=== PATIENT | male | born 1965 | race Caucasian/White ===

== ENCOUNTER 2023-04-30 09:18 | Outpatient (AMB) | payer OTHER, SELFPAY ==
--- NOTE | 2023-04-30 07:15 | A.OFFVIS_ITS ---
Intake Vital Signs 04/30/23 09:28 Height 6 ft 5 in Weight 250 lb BMI 29.6 BP 116/74 Blood Pressure Location Lt brachial Position Sitting Respiration 12 Pulse 80 Pulse Source Pulse Oximeter Intake Visit Reasons: Bilat Knee Pain h/o Knee Surgery Allergies oxycodone [Percocet] Allergy (Unknown, Verified 04/30/23 09:30) itching Medication List - Last Reconciled 04/30/23 by Edwige Rossi, ADRIENNE acetaminophen 650 mg PO Q6H PRN aspirin (Adult Aspirin Regimen) 81 mg PO DAILY atorvastatin 80 mg PO BEDTIME cyclobenzaprine 10 mg PO TID PRN loratadine (Claritin) 10 mg PO DAILY metoprolol succinate ER 50 mg PO DAILY nitroglycerin 0.4 mg sublingual Q5M PRN semaglutide 1 mg subcut QWEEK ticagrelor (Brilinta) 60 mg PO BID venlafaxine ER 75 mg PO DAILY zolpidem ER 12.5 mg PO BEDTIME PRN HPI Bilat Knee Pain h/o Knee Surgery HPI Details 58-year-old male who presents today to t he office for evaluation of bilateral knee pain h/o knee surgery He complains of longstanding pain in multiple areas of his body. His complaints today include an aching pain in the lower back and aching pain in bilateral knees. All these painful areas are rated as 8-10/10 in intensity. There are worse in the morning when you first wakes up and gets slightly better over the course of the day. He is unable to perform his daily activities. He reports locking sensation in his knees and has difficulty extending them. He was getting cortisone injections until 1 year ago, which was discontinued due to antiplatelet therapy. He is currently taking Tylenol with some relief. He recently moved from [place] and noticed some change in his pain. His most bothersome symptom at this time is his right knee. He describes a locking sensation on the knee. He used to get cortisone injections to the knee, but he has not been able to get over the past one year since he has been on dual antiplatelet therapy for stent placement. He is supposed to be seeing his photo printer next week for reviewing his anticoagulation regimen. He reports the right knee pain gets worse especially in the morning time, for which he takes Tylenol with some help. He has done some past chiropractic manipulations with some relief, but still getting locking sensations. He also done TENS therapy at [facility] and with good effect and as well as physical therapy that provided moderate relief. Past medical history is notable for a torn meniscus knee, left shoulder rotator cuff repair, left shoulder SLAP repair left, Achilles tendon repair and lumbar radiofrequency ablations. 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 Physical Exam Vital Signs: Last Vital Signs Pulse 80 04/30/23 09:28 Resp 12 04/30/23 09:28 BP 116/74 04/30/23 09:28 BMI result Body Mass Index 29.6 On exam today: Appears afebrile. Alert and oriented. Mood and affect appropriate. Follows and participates in conversation appropriately. Respiratory effort is unlabored. Able to transition from sit to stand unassisted. Ambulates with bilaterally normal heel strike and toe off. Able to stand and walk on toes and heels. No tenderness to palpation in the medial aspect of bilateral knees. Crepitus and clicking with right knee extension. Assessment & Plan Assessment & Plan (1) Tear meniscus knee: Code(s): S83.209A - Unspecified tear of unspecified meniscus, current injury, unspecified knee, initial encounter (2) Bilateral knee pain: Code(s): M25.561 - Pain in right knee; M25.562 - Pain in left knee (3) Lumbar spondylosis: Code(s): M47.816 - Spondylosis without myelopathy or radiculopathy, lumbar region Plan Recommend conservative measures at this time given DAPT. 1. PT for right knee with knee/sports medicine therapist to assess and recommend strategies. 2. Swimming to help with weightless exercise for LBP, bilateral knee pain and weight loss. 3. TENS therapy to the low back and knees as tolerated. 4. Also recommended a HEP as tolerated. 5. Trial of gabapentin 300mg BID for multiple pain complaints. Scribed for Dr. Leary by Rick Dang, medical massage therapist, on 04/30/2023. I, Dr. Leary, have personally reviewed and agree with the information entered by the scribe. Orders: Orders PT Evaluation and Treatment Today M25.561 - Pain in right knee, M25.562 - Pain in left knee, M47.816 - Spondylosis without myelopathy or radiculopathy, lumbar region, S83.209A - Unspecified tear of unspecified meniscus, current injury, unspecified knee, initial encounter Medications: New gabapentin 300 mg PO BID 60 caps 0RF Coding Level of Care Code New Pt Level 4 (04788) Diagnoses Tear meniscus knee S83.209A Bilateral knee pain M25.561; M25.562 Lumbar spondylosis M47.816
[2023-04-30 09:28] VITALS: BP 116/74; PULSE 80; RESP 12; BMI 29.6
== END 2023-04-30 10:12 | disposition home or self-care (01) ==
PROVIDERS: PCP Internal Medicine; Visit Provider Internal Medicine
DX: S83.209A Unspecified tear of unspecified meniscus, current injury, unspecified knee, initial encounter (principal); M25.561 Pain in right knee; M25.562 Pain in left knee; M47.816 Spondylosis without myelopathy or radiculopathy, lumbar region
CPT/HCPCS: 99204

== ENCOUNTER → 2023-04-30 09:18 | Outpatient (BNVA) | payer OTHER, SELFPAY | PROVIDERS: PCP Internal Medicine; Visit Provider Internal Medicine ==

== ENCOUNTER 2024-10-04 13:33 | Outpatient (AMB) | payer SELFPAY ==
--- OUTSIDE RECORDS SUMMARY | 2024-10-04 14:50 | XMS_ITS | Clinical Summary ---
Author Organization [facility] Address [address] [place] [id number] Phone Care Team Providers Care Scrap Baler Name Role Phone Terri Drake MD Primary Care Provider [phone] Allergies Active Allergy Reactions Criticality Noted Date Comments Oxycodone-Acetaminophen Hives 01/15/2017 Medications zolpidem (AMBIEN CR) 12.5 MG CR tablet Take 12.5 mg by mouth nightly as needed. Active ibuprofen (ADVIL,MOTRIN) 800 MG tablet Take 800 mg by mouth every 6 (six) hours as needed for pain (specific location in comments). Active venlafaxine (EFFEXOR-XR) 75 MG 24 hr capsule Take 75 mg by mouth daily. 3 04/06/2018 Active diclofenac sodium (VOLTAREN) 75 MG EC tablet Take 1 tablet (75 mg total) by mouth 2 (two) times a day. 60 tablet 2 11/18/2019 Active Active Problems Problem Noted Date Diagnosed Date Bilateral knee pain 12/30/2018 Rotator cuff strain, left, initial encounter 05/2018 Rotator cuff syndrome of left shoulder 7 History of arthroscopic surgery of shoulder 07/2016 Social History Tobacco Use Types Packs/Day Years Used Date Smoking Tobacco: Never Smokeless Tobacco: Never Alcohol Use Standard Drinks/Week Comments No 0 (1 standard drink = 0.6 oz pur e alcohol) Education Answer Date Recorded Are you interested in more education? Not on ten e 06/07/2022 Are you concerned about learning? Not on file 06/07/2022 No 06/07/2022 No 06/07/2022 Digital Access Answer Date Recorded No 07/06/2022 No 07/06/2022 Reliable internet access at home? Not on file 07/06/2022 Device with a working camera? Not on file Sex and Gender Information Value Date Recorded Sex Assigned at Not on file Legal Sex Male 9:43 PM EDT Gender Identity Not on file Sexual Orientation Not on file Last Filed Vital Signs Vital Sign Reading Time Taken Comments Blood Pressure 152/74 12/30/2018 1:24 PM EST Pulse 70 12/30/2018 1:24 PM EST Temperature - - Respiratory Rate - - Oxygen Saturation - - Inhaled Oxygen Concentration - - Weight 126.1 kg (278 lb) 04/20/2019 11:09 AM EDT Height 195.6 cm (6' 5.01 ) 12/30/2018 1:24 PM ES T Body Mass Index 32.96 12/30/2018 1:24 PM EST Plan of Treatment Health Maintenance Due Date Last Done Comments Adult Td,Tdap Booster 1965 LIPID PANEL 1965 DEPRESSION SCREENING 1975 HEPATITIS C SCREENING 1981 HIV ONE-TIME SCREENING (18-6 5 YEARS) 1981 COLOGUARD 02/21/2008 COLONOSCOPY 02/21/2008 COLORECTAL CANCER SCREENING 02/21/2008 FIT TEST 02/21/2008 FOBT 02/21/2008 SIGMOIDOSCOPY 02/21/2008 VIRTUAL COLONOSCOPY 02/21/2008 PNEUMOCOCCAL VACCINES (50+ years) (1 of 1 - PCV) 2013 ZOSTER VACCINES (2 of 2) 04/06/2020 020, 01/19/2020 COVID-19 VACCINE (3 - 2023-2 5 season) 2023 03/23/2020, 02/24/2020 RSV VACCINE (1 - 1-dose 75+ series) 2038 SMOKING STATUS SCREENING (On ce After 26 Yrs) Completed 04/20/2019 HEPATITIS A VACCINES Aged Out No long er eligible based on patient's age to complete this topic HIB VACCINES Aged Out No longer eligi ble based on patient's age to complete this topic MENINGOCOCCAL VACCINES (ACWY) Aged Out No longer eligible based on patient's age to complete this topic MENINGOCOCCAL VACCINES (B) Aged Out N o longer eligible based on patient's age to complete this topic Medical Devices Not on file Insurance [facility] HMO [facility] [place] [address] [place] [address]O [facility] * Guarantor: Terri Stevens Account Type Relation to Patient Date of Phone Billing Address Workers Comp Self [address] [place] [address] [facility] HMO Care Teams Scrap Baler Relationship Specialty Start Date End Date Terri Drake MD [address] [facility] [address] [place] [address] PCP - General 11/28/16 Additional Source Comments The information contained in this document represents components of the legal health record. It is not the complete legal health record.[facility]
--- OUTSIDE RECORDS SUMMARY | 2024-10-04 14:50 | XMS_ITS | Encounter Summary ---
Author Organization [facility] Address [address] [place] [address] [place] [phone] Phone Care Team Providers Care Visitor Services Representative Name Role Phone Levar Drake MD Primary Care Provider [phone] Encounter Details Date Type Department Care Team (Late st Contact Info) Description 03/02/2018 Procedure Pass [address] [place] [address] Social History Tobacco Use Types Packs/Day Years Used Date Smoking Tobacco: Never Smokeless Tobacco: Never Alcohol Use Standard Drinks/Week Comments No 0 (1 standard drink = 0.6 oz pur e alcohol) Sex and Gender Information Value Date Recorded Sex Assigned at Not on file Legal Sex Male 9:43 PM EDT Gender Identity Not on file Sexual Orientation Not on file documented as of this encounter Last Filed Vital Signs Vital Sign Reading Time Taken Comments Blood Pressure - - Pulse - - Temperature - - Respiratory Rate - - Oxygen Saturation - - Inhaled Oxygen Concentration - - Weight 122.5 kg (270 lb) 03/04/2018 7:52 PM EST Height 195.6 cm (6' 5 ) 03/04/2018 7:52 PM EST Body Mass Index 32.02 03/04/2018 7:52 PM EST documented in this encounter Plan of Treatment Not on file documented as of this encounter Visit Diagnoses Not on filedocumented in this encounter Care Teams Visitor Services Representative Relationship Specialty Start Date End Date Levar Drake MD [address] [facility] [address] [place] [address] PCP - General 11/28/16 documented as of this encounter Additional Source Comments The information contained in this document represents components of the legal health record. It is not the complete legal health record.[facility]
--- OUTSIDE RECORDS SUMMARY | 2024-10-04 14:50 | XMS_ITS | Clinical Summary ---
Author Organization [address] [place] [address] [place] [phone] Phone Care Team Providers Care Financial Director Name Role Phone Levar Drake MD Primary Care Provider [phone] Allergies Active Allergy Reactions Criticality Noted Date Comments Oxycodone Hcl 04/29/2022 Medications atorvastatin (LIPITOR) 80 mg tablet Take 1 tablet (80 mg total) by mouth 1 (one) time each day. 10/27/2023 Active senna (SENOKOT) 8.6 mg tablet Take 1 tablet (8.6 mg total) by mouth 1 (one) time each day. Active MULTIVITAMIN ORAL Take by mouth daily. Active docusate sodium (COLACE) 100 mg capsule Take 1 capsule (100 mg total) by mouth 1 (one) time each day if needed. Active aspirin (Vazalore) 81 mg capsule Take 1 tablet by mouth 1 (one) time each day. Patient taking 650mg daily Active nitroglycerin (NITROSTAT) 0.[address] 1 tablet (0.4 mg total) under the tongue every 5 (five) minutes if needed. Active loratadine (CLARITIN) 10 mg tablet Take 1 tablet (10 mg total) by mouth as needed. Active cyclobenzaprine (FLEXERIL) 10 mg tablet Take 1 tablet (10 mg total) by mouth 3 (three) times a day if needed. Active mag/aluminum/sod bicarb/alginc (GAVISCON ORAL) Take 3 Tablets by mouth as needed. Three times a day Active venlafaxine (EFFEXOR) 75 mg tablet Take by mouth daily. Active zolpidem CR (AMBIEN CR) 12.5 mg CR tablet Take by mouth at bedtime. Active tirzepatide, weight loss, (Zepbound) 5 mg/0.5 mL injection Inject 0.5 mL (5 mg total) under the skin every 7 (seven) days. Active metoprolol tartrate (LOPRESSOR) 25 mg tabletIndication s:Essential (primary) hypertension,Pre sence of coronary angioplasty implant and graft TAKE 1 TABLET BY MOUTH TWICE A DAY 180 tablet 2 07/15/2024 Active Active Problems Problem Noted Date Diagnosed Date Aortic dilatation ([facility] V24) 04/27/2024 Assessment & Plan (04/27/2024 10:10 AM EDT): We will update an echocardiogram for reevaluation of his aortic dilatation given that his most recent echocardiogram was completed in November 2022. Blood pressure is well-controlled. Will continue to readdress this as indicated. Orders: Transthoracic echocardiogram (TTE) complete with PRN contrast, bubble, strain, and 3D order panel; Future Status post coronary artery stent placement 04/10 Assessment & Plan (04/27/2024 10:10 AM EDT): Pericardial effusion after m yocardial infarction ([facility] V24, [facility] V28) 04/22/2023 CAD in [place] artery 05/29/2022 Overview (04/14/2024): Last Assessment & Plan: He does have coronary disease with multivessel stenting as above. He is stable without ischemic symptoms. He has completed cardiac rehab. Blood pressure has improved. He will continue aspirin, ticagrelor, lisinopril, metoprolol, and high intensity statin therapy. I am going to update an echocardiogram to see if his EF has recovered. If this has I will likely stop lisinopril and see if this continues to improve his episodic lightheadedness. Increase atorvastatin 80 mg daily. Goal LDL should be less than 70 given coronary disease. Low-salt diet. Change positions slowly given recurrent dizziness. Assessment & Plan (04/27/2024 10:10 AM EDT): The patient remains active on a regular basis within his current decreased functional capacity related to his bilateral knee pain; he offers no exertional symptoms to cause concern for underlying ischemia. Continue with guideline directed medical therapies for coronary artery disease including metoprolol, atorvastatin, and DAPT with aspirin and reduced dose of Brilinta. He has inquired today about when he is able to stop Brilinta; I have reviewed the results of both of his cardiac catheterizations completed in March 2022 which showed that he does have a fair amount of residual disease. He has been on Brilinta for almost 30 months now and has been tolerating it well. He been advised to stop his Brilinta 5 days prior to his scheduled left knee surgery on May 25, 2024; I have told him that I will speak with Dr. Butler regarding the need to restart his Brilinta post procedurally and we will continue to readdress this. The patient is aware that aspirin therapy will be lifelong. The patient was advised to seek emergent medical attention by calling 911 if they were to develop severe dyspnea, chest pain that did not resolve with rest or nitroglycerin, or if they were to faint. Orders: Lipid panel with reflex to direct LDL; Future Chronic combined systolic an d diastolic congestive heart failure (CMS/HCC V24, CMS/HCC V28) 05/29/2022 Overview (04/14/2024): Last Assessment & Plan: He has no signs or symptoms of volume overload. There is no indication for diuretic therapy. Continue monitor volume status. Call the office for weight gain in 1 to 3 pounds overnight or 5 pounds in 1 week. Low-salt diet encouraged. Assessment & Plan (04/27/2024 10:10 AM EDT): As above. Orders: Transthoracic echocardiogram (TTE) complete with PRN contrast, bubble, strain, and 3D order panel; Future Pericarditis 05/29/2022 Overview (04/14/2024): Last Assessment & Plan: He completed treatment for pericarditis. Trivial pericardial effusion noted on last echo. We will update this. He is asymptomatic. Essential hypertension 05/01/2022 Overview (04/14/2024): Last Assessment & Plan: Blood pressure stable today. Continue regimen. Assessment & Plan (04/27/2024 10:10 AM EDT): Blood pressure is well-controlled on current medical therapy; continue metoprolol. For completeness, we will obtain metabolic panel today as well.Orders: Basic metabolic panel; Future Ischemic cardiomyopathy 05/01/2022 Overview (04/14/2024): Status post non-STEMI with an ischemic cardiomyopathy. Stenting of OMB #2 in the proximal circumflex and then the LAD. EF was 20 to 25%. He is having problems with postural lightheadedness and dizziness and dyspnea on exertion. There is no sign of volume overload today. Blood pressures have been low and he has had postural lightheadedness Last Assessment & Plan: Ejection fraction has improved. EF went from 20-25 to 45%. Continue current regimen. No indication for ICD. Assessment & Plan (04/27/2024 10:10 AM EDT): The patient's most recent echocardiogram was completed in November 2022 revealing an improved EF of 45 to - 50%; previously it had been as low as 20 to 25% at the time of his stenting in April 2022. He appears euvolemic on exam today and offers no symptoms concerning for overt heart failure or underlying ischemia. We will be updating an echo for surveillance purposes only; this should not delay his surgical procedure. We discussed risk reduction through lifestyle modifications including healthy diet, routine exercise, and weight management. We reviewed heart failure management including low-sodium diet, symptom surveillance, daily weights, and medication compliance. I've asked the patient to call if they develop worsening symptoms of heart failure such as increased shortness of breath, new or worsening cough, increased swelling in the legs or ankles, or weight gain of more than 2 pounds in one day or 4 pounds in one week. Orders: ECG 12 lead Transthoracic echocardiogram (TTE) complete with PRN contrast, bubble, strain, and 3D order panel; Future Lipid panel with reflex to direct LDL; Future Chest pain 04/29/2022 EKG abnormality 04/29/2022 Hyperlipidemia 04/29/2022 Overview (04/14/2024): Last Assessment & Plan: Last lipid panel from August 2022. Total cholesterol 141, HDL 44, LDL 73. Continue high intensity statin therapy. Goal LDL should be less than 70. We will increase statin therapy to 80 mg daily and repeat in 4 to 6 weeks. Assessment & Plan (04/27/2024 10:10 AM EDT): The patient's most recent lipid panel was completed in November 2022 revealing an LDL of 56 which is at goal of less than 70 for this patient with a history of coronary artery disease. We will update a lipid panel today; in the interim, continue atorvastatin 80 mg. Orders: Lipid panel with reflex to direct LDL; Future History of non-ST elevation myocardial infarctio n (NSTEMI) 04/29/2022 Assessment & Plan (04/27/2024 10:10 AM EDT): Medical History Medical History Date Comments Class 1 obesity DX:Class 1 obesi ty Apnea DX:Apnea Back pain DX:Back pain Depression DX:Depression GERD (gastroesophageal reflux disease) DX:GERD (gastroesophageal reflux disease) Insomnia DX:Insomnia Knee pain DX:Knee pain Major depressive disorder in partial remission (CMS/HCC V24) DX:Major depressive disorder in partial remission (HCC) Family History Medical History Relation Name Comments Heart attack Father Relation Name Status Comments Father Social History Tobacco Use Types Packs/Day Years Used Date Smoking Tobacco: Never Smokeless Tobacco: Never Alcohol Use Standard Drinks/Week Comments Yes 0 (1 standard drink = 0.6 oz pur e alcohol) Sex and Gender Information Value Date Recorded Sex Assigned at Not on file Legal Sex Male 8:10 PM EST Gender Identity Not on file Sexual Orientation Not on file Obstetrics History Last Filed Vital Signs Vital Sign Reading Time Taken Comments Blood Pressure 121/70 04/27/2024 9:08 AM EDT Pulse 67 04/27/2024 9:08 AM EDT Temperature - - Respiratory Rate - - Oxygen Saturation 97% 04/27/2024 9:08 AM EDT Inhaled Oxygen Concentration - - Weight 121 kg (266 lb) 06/14/2024 11:37 AM EDT Height 195.6 cm (6' 5 ) 06/14/2024 11:37 AM EDT Body Mass Index 31.54 06/14/2024 11:37 AM EDT Plan of Treatment Health Maintenance Due Date Last Done Comments DTaP,Tdap,and Td Vaccines (1 - Tdap) 1982 Pneumococcal Vaccine: 50+ Years (1 of 2 - PCV) 1982 Zoster Vaccines (2 of 2) 04/06/2020 02/10/2020, 12/0 10/2019 RSV Immunization Adult Patients (1 - Risk 60-74 years 1-dose series) 2023 Colorectal Cancer Screening: Colonoscopy 03/06/2023 HIV Screening 03/06/2023 Hepatitis C Screening 03/06/2023 Social Influencers of Health Screening 03/06/2023 Depression Screening 02/11/2024 Influenza Vaccine (#1) 2024 , 11/19/2022, 11/26/2021, Additional history exists Hypertension/CHF/CAD Annual BMP Blood Test 04/27/2025 04/27/2024 Cholesterol Screening (Lipid Panel) 04/27/2029 04/27/2024, 11/19/2022 COVID-19 Vaccine Completed 01/30/2024, 12/2022, 12/28/2021, Additional history exists HIB Vaccines Aged Out No longer eligi ble based on patient's age to complete this topic HPV Vaccines Aged Out No longer eligi ble based on patient's age to complete this topic Hepatitis A Vaccines Aged Out No long er eligible based on patient's age to complete this topic Hepatitis B Vaccines Aged Out No long er eligible based on patient's age to complete this topic IPV Vaccines Aged Out No longer eligi ble based on patient's age to complete this topic MMR Vaccines Aged Out No longer eligi ble based on patient's age to complete this topic Meningococcal ACWY Vaccine Aged Out N o longer eligible based on patient's age to complete this topic Meningococcal B Vaccine Aged Out No l onger eligible based on patient's age to complete this topic RSV Immunization Patients Under 20 months Aged Out No longer eligible based on patient's age to complete this topic Varicella Vaccines Aged Out No longer eligible based on patient's age to complete this topic Procedures Procedure Name Priority Date/Time Associated Diagnosis Comments BASIC METABOLIC PANEL Routine 04/27/2024 10:39 AM EDT Essential hypertension LIPID PANEL WITH REFLEX TO DIRECT LDL Routine 04/27/2024 10:39 AM EDT Ischemic cardiomyopathy CAD in [place] artery Hyperlipidemia, unspecified hyperlipidemia type from Last 3 Months or Most Recently Relevant to Health Maintenance Results * Lipid panel with reflex to direct LDL (04/27/2024 10:39 AM EDT) Cholesterol 155 0 - 200 mg/dL LAB CHEMISTRY METHOD 04/27/2024 1:[address] [facility] Triglycerides 127 0 - 150 mg/dL LAB CHEMISTRY METHOD 04/27/2024 1:[address] [facility] HDL 57 >=40 mg/dL LAB CHEMISTRY METHOD 04/27/2024 1:[address] [facility] LDL Calculated 73 0 - 100 mg/dL LAB CHEMISTRY METHOD 04/27/2024 1:[address] [facility] VLDL Cholesterol Artur 25.4 mg/dL LAB CHEMISTRY METHOD 04/27/2024 1:[address] [facility] Non HDL Chol. (LDL+VLDL) 98 <145 mg/dL LAB CHEMISTRY METHOD 04/27/2024 1:[address] [facility] Chol/HDL Ratio 2.7 0.0 - 4.4 LAB CHEMISTRY METHOD 04/27/2024 1:[address] [facility] Blood Venous blood specimen / Unknown Venipuncture / Unknown 04/27/2024 10:39 AM EDT 04/27/2024 11:30 AM EDT Rosa Li NP LAB BLOOD ORDERABLES Final Result [facility] [address] [place] [address], * Basic metabolic panel (04/27/2024 10:39 AM EDT) Sodium 136 133 - 145 mmol/L LAB CHEMISTRY METHOD 04/27/2024 1:00 PM [facility] Potassium 4.2 3.5 - 5.5 mmol/L LAB CHEMISTRY METHOD 04/27/2024 1:00 PM [facility] Chloride 103 96 - 110 mmol/L LAB CHEMISTRY METHOD 04/27/2024 1:00 PM [facility] CO2 26 21 - 32 mmol/L LAB CHEMISTRY METHOD 04/27/2024 1:00 PM [facility] Anion Gap 7 3 - 11 LAB CHEMISTRY METHOD 04/27/2024 1:00 PM [facility] Glucose 100 70 - 100 mg/dL LAB CHEMISTRY METHOD 04/27/2024 1:00 PM [facility] BUN 9 5 - 25 mg/dL LAB CHEMISTRY METHOD 04/27/2024 1:00 PM [facility] Creatinine 0.89 0.70 - 1.30 mg/dL LAB CHEMISTRY METHOD 04/27/2024 1:00 PM [facility] eGFR 97 >=60 mL/min/1. 73m2 LAB CHEMISTRY METHOD 04/27/2024 1:00 PM [facility] Comment:Calculation based on the Chronic Kidney Disease Epidemiology Collaboration (CKD-EPI) equation refit without adjustment for race. BUN/Creatinine Ratio 10.1 LAB CHEMISTRY METHOD 04/27/2024 1:00 PM [facility] Calcium 9.5 8.5 - 10.5 mg/dL LAB CHEMISTRY METHOD 04/27/2024 1:00 PM [facility] Blood Venous blood specimen / Unknown Venipuncture / Unknown 04/27/2024 10:39 AM EDT 04/27/2024 11:30 AM EDT us Rosa Li NP LAB BLOOD ORDERABLES Final Result [facility] [address] [place] [address], from Last 3 Months or Most Recently Relevant to Health Maintenance Insurance * Guarantor: Levar Mittal Account Type Relation to Patient Date of Phone Billing Address Personal/Family Self 1965 [address] [place] [address] [facility] [address] [place] [address] Care Teams Financial Director Relationship Specialty Start Date End Date Levar Drake MD [address] [place] [address] PCP - General 06/12/15
== END 2024-10-04 13:35 | disposition home or self-care (01) ==
LOC: HO.HMGAL 13:33
PROVIDERS: PCP Internal Medicine; Visit Provider Registered Nurse Emergency
DX: J30.89 Other allergic rhinitis (principal)
CPT/HCPCS: 95117; 95165

== ENCOUNTER 2024-11-01 14:05 | Outpatient (AMB) | payer OTHER, SELFPAY | END 2024-11-01 14:09 | disposition home or self-care (01) | LOC: HO.HMGAL 14:05 | PROVIDERS: PCP Internal Medicine; Visit Provider Registered Nurse Emergency | DX: J30.89 Other allergic rhinitis (principal) | CPT/HCPCS: 95117; 95165 ==

== ENCOUNTER 2024-11-29 14:25 | Outpatient (AMB) | payer OTHER, SELFPAY ==
--- OUTSIDE RECORDS SUMMARY | 2024-11-29 18:10 | XMS_ITS | Clinical Summary ---
Author Organization [facility] Address [address] [facility] [address] [place] [id number] Phone Care Team Providers Care Manager Digital Name Role Phone Terri Drake MD Primary Care Provider [phone] Allergies Active Allergy Reactions Criticality Noted Date [...] HEPATITIS C SCREENING 1981 HIV ONE-TIME SCREENING (18-65 YEARS) 1981 COLOGUARD 02/21/2008 COLONOSCOPY 02/21/2008 COLORECTAL CANCER SCREENING 02/21/2008 FIT TEST 02/21/2008 FOBT 02/21/2008 SIGMOIDOSCOPY 02/21/2008 VIRTUAL COLONOSCOPY 02/21/2008 PNEUMOCOCCAL VACCINES (50+ years) (1 of 1 - PCV) 2013 ZOSTER VACCINES (2 of 2) 04/06/2020 02/10/2020, 12/0 10/2019 INFLUENZA VACCINE (#1) 2024 0, 11/08/2018, 11/10/2017, Additional history exists COVID-19 VACCINE (3 - 2024- season) 2024 03/23/2020, 02/24/2020 RSV VACCINE (1 - 1-dose 75+ series) 2038 SMOKING STATUS SCREENING (Once After 26 Yrs) Completed 04/20/2019 HEPATITIS A [...] topic Medical Devices Not on file [place] [address] [place] [address] [place] [address] [facility] [address] [place] [id number] [place], [place] [address]O [facility] Care Teams Manager Digital Relationship Specialty Start Date End Date Terri Drake MD [address] [place] [id number] PCP - General 11/28/16 Additional Source Comments The information contained in this document represents components of the legal health record. It is not the complete legal health record.[facility]
--- OUTSIDE RECORDS SUMMARY | 2024-11-29 18:10 | XMS_ITS | Encounter Summary ---
Author Organization [facility] Address [address] [place] [address] [place] [address] Phone Care Team Providers Care Bowling Ball Assembler Name Role Phone Levar Drake MD Primary Care Provider [phone] Encounter Details Date Type Department Care Team (Late st Contact Info) Description 03/02/2018 Procedure Pass [address] [place] [address] Social History Tobacco Use Types Packs/Day Years [...] on filedocumented in this encounter Care Teams Bowling Ball Assembler Relationship Specialty Start Date End Date Levar Drake MD [address] [facility] [address] [place] [address] PCP - General 11/28/16 documented as of this encounter Additional Source Comments The information contained in this document represents components of the legal health record. It is not the complete legal health record.[facility]
== END 2024-11-29 14:27 | disposition home or self-care (01) ==
LOC: HO.HMGAL 14:25
PROVIDERS: PCP Internal Medicine; Visit Provider Registered Nurse Emergency
DX: J30.89 Other allergic rhinitis (principal)
CPT/HCPCS: 95117; 95165

== ENCOUNTER 2025-01-05 10:02 | Outpatient (AMB) | payer OTHER, SELFPAY ==
--- OUTSIDE RECORDS SUMMARY | 2025-01-05 11:40 | XMS_ITS | Data Portability ---
Author Organization [facility], [facility] Address [address] [place] [address] Care Team Providers Care Locks Inspector Name Role Phone TERRI CHAVEZ Primary Care Provider Assessment Encounter Date Assessment Date Assessment LastModified by Organization Details LastModified Time 07/12/2024 07/12/2024 Assessment: Good improvement in knee flex noted today. Plan: Continue PT @ 2x/wk for 4 weeks to decrease pain, optimize motion, increase strength, and foster independence with functional ADL's. .p Not available 07/12/2024 15:13:14 07/14/2024 07/14/2024 Assessment: I ncreased endurance with therex noted today. Plan: Continue PT @ 2x/wk for 4 weeks to decrease pain, optimize motion, increase strength, and foster independence with functional ADL's. .p Not available 07/14/2024 16:16:07 12/09/2024 12/09/2024 I am seeing the patient today under the supervision of who was available but who did not see the patient. The patient presents today for follow-up. Has known trochanteric bursitis of the Right hip. Has had previous cortisone injection which gave relief until recently. Has had no recent trauma, no fevers or chills, no neurovascular changes. Presents today for further evaluation. PAST MEDICAL/SURGICAL HISTORY Past medical history is reviewed per intake sheet. PHYSICAL FINDINGS On physical examination, the patient is well appearing and in no apparent distress, alert and oriented x3. Gait is symmetric. Examination of the hip reveals the skin to be intact, normal musculature, continued tenderness on palpation over the greater trochanter. No pain with range of motion of the hip, has full range of motion, no crepitus noted with range of motion. No significant pain with straight leg raise. 2 x-ray views of the Right hip were independently reviewed today : No fractures, no deformities, no DJD noted on todays exam ASSESSMENT Symptomatic trochanteric bursitis of the Right hip. PLAN I explained the nature of the diagnosis with the patient and its treatment options both conservative and surgical.Conservat niki measures were discussed at length including but not limited to physical therapy, bracing, anti-inflammatorie s and injection therapies. Please see procedure note for more information about the injection performed today. The patient will follow up as needed. The patient understands and agrees with the plan. They know to call if they have any further questions or concerns regarding their symptoms, or to follow up sooner if needed. [email or web address] Not available 12/09/2024 06:12:50 12/30/2024 12/30/2024 History: Patient is a 59-year-old male presents to me for initial evaluation of bilateral knee pain. Pain is over the anterior medial aspect of both knees. He takes Tylenol for discomfort. Right knee is locking on him 2-3 times a month which is extremely painful. Left knee actually probably hurts more at baseline though. Pain level X/10 on both at times though. He reports pain at rest and significant limitations in activities particularly difficulty with stairs and getting out of a chair. Has difficulty kneeling and squatting. He reports a limp. PMH/PSH/MEDS/ALL/F MH/SOC HX/ROS are reviewed in detail per my medical intake sheet. Of note: Myocardial infarction status post stent 3 in 2022, right knee arthroscopy in 2023, left knee arthroscopy in 2024, sleep apnea, right hip bursitis, back pain General Exam: Vital signs are as noted below Mental status: Alert and lucid. Normal insight, affect and grooming. WIRE BENDER HAND: Gross motor coordination is intact. No spasticity or clonus noted. Extremities: Calves are soft nontender, skin intact Orthopedic Examination: Right Knee: Neutral alignment. Range of motion 3-120. Severe patellofemoral pain and crepitus. Tenderness along the medial joint line. No instability, mild effusion. Left Knee: Neutral alignment. Range of motion 3-120. Severe patellofemoral pain and crepitus. Severe tenderness along the medial joint line. No instability. Mild effusion Antalgic gait pattern favoring the right side. Full strength and sensation distally X-rays: Radiographs ordered and obtained today including a standing AP, Singh view, nonweightbearing lateral views, and merchant view. These radiographs demonstrate osteoarthrits of the bilateral knees. There is joint space narrowing, subchondral sclerosis, and osteophyte formation. Arthroscopy photographs are reviewed independently by me. These demonstrate grade 4 changes in the right trochlea with grade 3 medial compartment changes. On the left knee, there is also grade 4 changes in the trochlea with grade 3 changes on the patella. Assessment: End-stage osteoarthritis of the bilateral knees confirmed with arthroscopy. Right knee causing more functional limitations due to locking intermittently. His knees have failed greater than 3 months of nonoperative treatment including medication, activity modification, arthroscopy, and injections. The patient is in too much discomfort to participate in any meaningful physical therapy. PLAN: The patient was thoroughly counseled today regarding their knee condition, its natural history and the options, both operative and non-operative. The nature of knee replacement surgery, the potential risks, benefits, and complications, the magnitude of the surgery, the intensity of postoperative recovery as well as its elective nature were explained at length today. Although it is impossible to list all of the possible complications of any operation or procedure, I explained that some of the major complications that may arise include the following: Blood loss requiring transfusion, infection (early or late), blood clots, dislocation, pain (persistent or new), scars numbness or tenderness, unequal leg lengths, weakness, stiffness, loss of motion, clicking of implant, calcification, fracture of bone, instability of leg, nerve damage (paralysis or numbness), blood vessel damage, implant loosening, implant breakage, wearing of the implant, need for future surgery, allergic reaction, metal toxicity, medical complications including confusion, heart attack, stroke, or ). Issues regarding lifelong infection and activity precautions were reviewed. The longevity of the implants was discussed. The patient understands the potential need for revision surgery. We discussed performing the surgery in either an inpatient or outpatient setting as well as the pros and cons of both. The patient has elected to proceed in a inpatient setting. The patient understands that they are at potential increased risk of cardiac event and may require preoperative cardiac evaluation The patient will also require clearance from a medical doctor prior to surgery. The patient wishes to schedule an elective total knee replacement on the right side only at this time. Next planned follow-up is at the history and physical. The patient knows I will be happy to meet with them at any time in order to review any additional questions or concerns that they might have. [email or web address] Not available 12/30/2024 12:28:17 Plan of Treatment Reminders Order Date Submit Date Provider Last Modified By Organization Details Last Modified Time Details Appointments [facility] H&P 2025 09:30A M Koko Soto NP Not available Not available Not available [place] [facility] [place] 09:30A M Harvey Whitney MD Not available Not available Not available POST OP 15 2025 08:45A M Dea Corrales CNP Not available Not available Not available POST OP 15 2025 08:45A M Dea Corrales CNP Not available Not available Not available RECHECK 2025 09:40A Shaggy Whitney MD Not available Not available Not available Lab None recorded . Referral None recorded . Procedures None recorded . Surgeries None recorded . Imaging XR, knee, 4 or more view - 4 b knee 4v 2024 025 [email or web address] [facility], [address] [facility] [address], [facility] [address], [place], [address], 12/30/2024 13:01:54 Medication Orders None recorded . Patient TargetsNo targets recorded. Patient InstructionsNo instructions recorded. Reason for Referral None Reported. Results Created Date Observation Date Name Description Value Unit Range Abnormal Flag Note LastModifiedBy Organization Detail LastModifiedTime 12/31/1912/30/2024 CBC WITH DIFFE RENTI AL/PL ATELE T WBC 9.5 x10e3 /uL 3.4-10 .8 normal Not Available [facility] ([facility]) [address] [facility], [place], [address], 12/31/2024 06:05:31 12/31/1912/30/2024 CBC WITH DIFFE RENTI AL/PL ATELE T RBC 4.90 x10e6 /uL 4.14-5 .80 normal Not Available [facility] ([facility]) [address] [place], [address], 12/31/2024 06:05:31 12/31/19 25 12/30/2024 CBC WITH DIFFE RENTI AL/PL ATELE T hemoglobin 15.2 g/dL 13.0-1 7.7 normal Not Available [facility] ([facility]) [address] [place], [address], 12/31/2024 06:05:31 12/31/19 25 12/30/2024 CBC WITH DIFFE RENTI AL/PL ATELE T hematocrit 44.5 % 37.5-5 1.0 normal Not Available [facility] ([facility]) [address] [facility], [place], [address], 12/31/2024 06:05:31 12/31/19 25 12/30/2024 CBC WITH DIFFE RENTI AL/PL ATELE T MCV 91 fL 79-97 normal Not Available [facility] ([facility]) [address] [place], [address], 12/31/2024 06:05:31 12/31/19 25 12/30/2024 CBC WITH DIFFE RENTI AL/PL ATELE T MCH 31.0 pg 26.6-3 3.0 normal Not Available [facility] ([facility]) [address] [place], [address], 12/31/2024 06:05:31 12/31/19 25 12/30/2024 CBC WITH DIFFE RENTI AL/PL ATELE T MCHC 34.2 g/dL 31.5-3 5.7 normal Not Available [facility] ([facility]) [address] [place], [address], 12/31/2024 06:05:31 12/31/19 25 12/30/2024 CBC WITH DIFFE RENTI AL/PL ATELE T RDW 13.2 % 11.6-1 5.4 Not Available [facility] ([facility]) [address] [place], [address], 12/31/2024 06:05:31 12/31/19 25 12/30/2024 CBC WITH DIFFE RENTI AL/PL ATELE T platelets 204 x10e3 /uL 150-45 0 normal Not Available [facility] ([facility]) [address] [facility], [place], [address], 12/31/2024 06:05:31 12/31/19 25 12/30/2024 CBC WITH DIFFE RENTI AL/PL ATELE T neutrophils 43 % not estab. normal Not Available [facility] ([facility]) [address] [facility], [place], [address], 12/31/2024 06:05:31 12/31/19 25 12/30/2024 CBC WITH DIFFE RENTI AL/PL ATELE T lymphs 42 % not estab. normal Not Available [facility] ([facility]) [address] [facility], [place], [address], 12/31/2024 06:05:31 12/31/19 25 12/30/2024 CBC WITH DIFFE RENTI AL/PL ATELE T monocytes 10 % not estab. normal Not Available [facility] ([facility]) [address] [place], [address], 12/31/2024 06:05:31 12/31/19 25 12/30/2024 CBC WITH DIFFE RENTI AL/PL ATELE T eos 3 % not estab. normal Not Available [facility] ([facility]) [address] [place], [address], 12/31/2024 06:05:31 12/31/19 25 12/30/2024 CBC WITH DIFFE RENTI AL/PL ATELE T basos 1 % not estab. normal Not Available [facility] ([facility]) [address] [place], [address], 12/31/2024 06:05:31 12/31/19 25 12/30/2024 CBC WITH DIFFE RENTI AL/PL ATELE T immature cells SEED CLEANER Not Available [facility] ([facility]) [address] [place], [address], 12/31/2024 06:05:31 12/31/19 25 12/30/2024 CBC WITH DIFFE RENTI AL/PL ATELE T neutrophils (absolute) 4.2 x10e3 /uL 1.4-7. 0 normal Not Available [facility] ([facility]) [address] [place], [address], 12/31/2024 06:05:31 12/31/19 25 12/30/2024 CBC WITH DIFFE RENTI AL/PL ATELE T lymphs (absolute) 3.9 x10e3 /uL 0.7-3. 1 above high normal Not Available [facility] ([facility]) [address] [place], [address], 12/31/2024 06:05:31 12/31/19 25 12/30/2024 CBC WITH DIFFE RENTI AL/PL ATELE T monocytes(ab solute) 1.0 x10e3 /uL 0.1-0. 9 above high normal Not Available [facility] ([facility]) [address] [place], [address], 12/31/2024 06:05:31 12/31/19 25 12/30/2024 CBC WITH DIFFE RENTI AL/PL ATELE T eos (absolute) 0.3 x10e3 /uL 0.0-0. 4 normal Not Available [facility] ([facility]) [address] [place], [address], 12/31/2024 06:05:31 12/31/19 25 12/30/2024 CBC WITH DIFFE RENTI AL/PL ATELE T baso (absolute) 0.1 x10e3 /uL 0.0-0. 2 normal Not Available [facility] ([facility]) [address] [facility], [place], [address], 12/31/2024 06:05:31 12/31/19 25 12/30/2024 CBC WITH DIFFE RENTI AL/PL ATELE T immature granulocytes 1 % not estab. Not Available [facility] ([facility]) [address] [facility], [place], [address], 12/31/2024 06:05:31 12/31/19 25 12/30/2024 CBC WITH DIFFE RENTI AL/PL ATELE T immature grans (abs) 0.1 x10e3 /uL 0.0-0. 1 Not Available [facility] ([facility]) [address] [facility], [place], [address], 12/31/2024 06:05:31 12/31/19 25 12/30/2024 CBC WITH DIFFE RENTI AL/PL ATELE T NRBC SEED CLEANER Not Available [facility] ([facility]) [address] [facility], [place], [address], 12/31/2024 06:05:31 12/31/19 25 12/30/2024 CBC WITH DIFFE RENTI AL/PL ATELE T hematology comments: SEED CLEANER Not Available [facility] ([facility]) [address] [facility], [place], [address], 12/31/2024 06:05:31 12/31/19 25 12/30/2024 ELECT ROLYT E PANEL sodium 141 mmol/ L 134-14 4 normal Not Available [facility] ([facility]) [address] [place], [address], 12/31/2024 06:05:32 12/31/19 25 12/30/2024 ELECT ROLYT E PANEL potassium 4.7 mmol/ L 3.5-5. 2 normal Not Available [facility] ([facility]) [address] [place], [address], 12/31/2024 06:05:32 12/31/19 25 12/30/2024 ELECT ROLYT E PANEL chloride 102 mmol/ L 96-106 normal Not Available [facility] ([facility]) [address] [facility], [place], [address], 12/31/2024 06:05:32 12/31/19 25 12/30/2024 ELECT ROLYT E PANEL carbon dioxide, total 30 mmol/ L 20-29 above high normal Not Available [facility] ([facility]) [address] [facility], [place], [address], 12/31/2024 06:05:32 12/31/19 25 12/30/2024 BUN+C REAT BUN 14 mg/dL 8-27 normal Not Available [facility] ([facility]) [address] [facility], [place], [address], 12/31/2024 06:05:32 12/31/19 25 12/30/2024 BUN+C REAT creatinine 0.94 mg/dL 0.76-1 .27 normal Not Available [facility] ([facility]) [address] [facility], [place], [address], 12/31/2024 06:05:32 12/31/19 25 12/30/2024 BUN+C REAT eGFR 92 mL/mi n/1.7 3 >59 normal Not Available [facility] ([facility]) [address] [facility], [place], [address], 12/31/2024 06:05:32 12/31/19 25 12/30/2024 BUN+C REAT BUN/creatini ne ratio 15 10-24 normal Not Available [facility] ([facility]) [address] [facility], [place], [address], 12/31/2024 06:05:32 12/31/19 25 12/31/2024 PROTH ROMBI N TIME (PT) INR 0.9 0.9-1. 2 Refer ence inter jairo is for non-a ntico agula hank patie nts. Sugge sted INR thera peuti c range for Vitam in K antag onist thera py: Stand soren Dose (mode rate inten sity thera peuti c range ): 2.0 - 3.0 Highe r inten sity thera peuti c range 2.5 - 3.5 Not Available [facility] ([facility]) [address] [place], [address], 12/31/2024 06:05:32 12/31/1912/31/2024 PROTH ROMBI N TIME (PT) prothrombin time 9.5 sec 9.1-12 .0 normal Not Available [facility] ([facility]) [address] [place], [address], 12/31/2024 06:05:32 12/31/19 25 12/31/2024 HEMOG LOBIN A1C hemoglobin A1C 5.9 % 4.8-5. 6 above high normal Predi abete s: 5.7 - 6.4 Diabe juvenal: >6.4 Glyce lucina contr ol for adult s with diabe juvenal: <7.0 Not Available [facility] ([facility]) [address] [place], [address], 12/31/2024 06:05:33 12/31/19 25 12/31/2024 PTT, ACTIV ATED APTT 25 sec 24-33 normal This test has not been valid ated for monit oring unfra ction ated hepar in thera py. aPTT- based thera peuti c range s for unfra ction ated hepar in thera py have not been estab geovany Silvestre gener al guide lines on Hepar in monit oring , refer to the [facility] Direc meg of Derrick coombs. Not Available [facility] ([facility]) [address] [place], [address], 12/31/2024 06:05:33 12/31/19 25 12/30/2024 GLUCO SE glucose 93 mg/dL 70-99 normal Not Available [facility] ([facility]) [address] [facility], [place], [address], 12/31/2024 06:05:33 12/31/19 25 12/30/2024 XR, knee, 4 or more view http:/ [email or web address] ?Encry pted=s hAaTro YD8dLq bEUv6g %2BXZw aYqtaq 0bqfl% 2Fg9IQ a4ajBk vP9nXo QUaueC m3YtLR FvZlgJ JJ8mAn HZtai3 8r7366 AC0KlY 3uAU6W hKiQtr MwF INTERFACE [facility] [address], [address], 12/30/2024 11:06:05 12/31/19 25 12/30/2024 XR, knee, 4 or more view http:/ [email or web address] ?Encry pted=s hAaTro YD8dLq bEUv6g %2BXZw aYqtaq 0bqfl% 2Fg9IQ a4ajBk vP9nXo QUaueC m3YtLR FvZlgJ JJ8mAn HZtai3 6e8559 AC0KlY 3uAU6W hKiQtr MwF INTERFACE [facility] [address] [facility] [address], [place], [address], 12/30/2024 11:06:06 Result Notes Documentation Provider Name and Address Organization Details Recorded Time Xr, Knee, 4 Or More View : [email or web address]? Encrypted=ajTaZrfUB4uWniH Uv6g%0UEBdxKosgo7yexl%2Fg 8XOq4yqRfkZ7iSvQIkwmPf7Hn RNMsDxmESA4rEuHFoiu61c987 9YL9XaB4mKG3RkBvXskBkH Not Available [facility] 12/30/2024 11:06: 05 Xr, Knee, 4 Or More View : [email or web address] Encrypted=hbTdCcbPO4wSnlU Uv6g%0FVJyaWnwmb5kqzf%2Fg 0RQn2muOmvN2tHeASkxyHz2Mp HCVgJcfANB0pPwCXrov87s979 0TN1MbO8tPZ4TyGwOyiFmV Not Available [facility] 12/30/2024 11:06: 07 Problems Name Problem SNOMED Code Status Onset Date Resolution Date Notes Provider Name and Address Organization Details Recorded Time Idiopathi c osteoarth ritis 105559839 Active 2016 Problem Code: M17.0; Problem Code Type: ICD-10; Status: 'A'; Not Available [facility] 4 11:13:42 Sprain of shoulder 0123444 Active 2016 Problem Code: S43.82XA ; Problem Code Type: ICD-10; Status: 'A'; Not Available [facility] 4 11:13:42 Tear of medial meniscus of knee 991642313 Active 2016 Problem Code: S83.242A ; Problem Code Type: ICD-10; Status: 'A'; Not Available [facility] 4 11:13:42 Pain of left elbow joint 867563903335 76840 Active 2023 Enrrique Metcalf PA-C [address], [place], [address] , [facility] 4 08:31:05 Tear of distal tendon of biceps brachii 712582840 Active 2023 Enrrique Metcalf PA-C [address], [place], [address] , [facility] 4 08:44:12 Traumatic rupture of distal tendon of left biceps brachii 050040828079 42467 Active 2023 Enrrique Metcalf PA-C [address], [place], [address] , [facility] 4 06:48:06 Right lateral elbow tendinopa thy 639253111289 107 Active 2023 Enrrique Metcalf PA-C [address], [place], [address] , [facility] 4 14:00:50 Strain of hamstring tendon 832399364 Active 2023 Enrrique Metcalf PA-C [address], [place], [address] , [facility] 4 14:01:04 Rupture of tendon of biceps 441496281 Active 2023 Enrrique Metcalf PA-C [address], [place], [address] , [facility] 4 14:01:37 Osteoarth ritis of right knee joint 804665216981 100 Active 2024 Enrrique Metcalf PA-C [address], [place], [address] , [facility] 5 14:50:20 Pain of knee region 5616313603 Active 2024 [facility] 5 10:58:20 Problem Notes None recorded. Procedures Surgical History Date Name Laterality Status Provider Name and Address Organization Details Recorded Time 12/10/19 25 JZHip completed Tomasz Kumar PA-C [address], [place], [address], [facility] 12/09/2024 11:20:52 10/20/19 25 Knee Kenalog 40 1cc Injection, Bilateral completed Enrriqeu Metcalf PA-C [address], [place], [address], [facility] 10/19/2024 08:36:07 07/15/19 25 [id number] Therapeutic Exercise (1:1) completed Daylin Mascorro, PEDIATRICIAN [address], [place], [address], [facility] 07/14/2024 14:55:23 07/13/19 61033 Therapeutic Exercise (1:1) completed Daylin Mascorro, PEDIATRICIAN [address], [place], [address], [facility] 07/12/2024 14:43:43 07/07/19 Knee Kenalog 40 1cc Injection, Bilateral completed Enrrique Metcalf PA-C [address], [place], [address], [facility] 07/06/2024 14:50:36 07/01/19 72802 Therapeutic Exercise (1:1) completed PHILLY BALL DPT [address], [place], [address], [facility] 06/30/2024 15:43:42 06/29/19 57373 Therapeutic Exercise (1:1) completed PHILLY BALL DPT [address], [place], [address], [facility] 06/28/2024 15:32:27 06/24/19 20655 Therapeutic Exercise (1:1) completed Daylin Mascorro PTA [address], [place], [address], [facility] 06/23/2024 14:59:50 06/15/19 34448 Therapeutic Exercise (1:1) completed Daylin Mascorro PTA [address], [place], [address], [facility] 06/14/2024 11:42:05 06/10/19 72425 Therapeutic Exercise (1:1) completed EASTON HYATTT [address], [place], [address], [facility] 06/09/2024 16:11:07 06/08/19 25 09122 Therapeutic Exercise (1:1) completed PHILLY BALL DPT [address], [place], [address], [facility] 06/08/2024 10:30:58 06/03/19 19262 Therapeutic Exercise (1:1) completed PHILLY BALL DPT [address], [place], [address], [facility] 06/02/2024 12:21:59 06/01/19 25 62871 Therapeutic Exercise (1:1) completed PHILLY BALL DPT [address], [place], [address], [facility] 05/31/2024 15:33:54 06/01/19 26181: Low complexity PT Eval completed PHILLY BALL DPT [address], [place], [address], [facility] 05/31/2024 15:33:59 05/29/19 25 Orthopedic Surgery completed Enrrique Metcalf PA-C [address], [place], [address], [facility] 07/06/2024 14:46:04 03/06/19 25 JZHip Inj completed Tomasz Kumar PA-C [address], [place], [address], [facility] 03/06/2024 08:30:40 01/13/20 28419 Therapeutic Exercise (1:1) completed PHILLY BALL DPT [address], [place], [address], [facility] 01/13/2024 13:38:03 01/07/20 24 99055 Therapeutic Exercise (1:1) completed Daylin Mascorro PTA [address], [place], [address], [facility] 01/07/2024 11:20:54 01/05/20 24 73203 Therapeutic Exercise (1:1) completed Daylin Formejester, PEDIATRICIAN [address], [place], [address], [facility] [employer] [facility] 01/05/2024 14:21:17 01/01/20 15805 Therapeutic Exercise (1:1) completed Daylin Mascorro, PEDIATRICIAN [address], [place], [address], [facility] 01/01/2024 15:23:33 12/29/19 Knee Depo 1cc Injection, Bilateral completed Jeff Mixon MD [address], [place], [address], [facility] 12/29/2023 12:10:59 12/16/19 69545 Therapeutic Exercise (1:1) completed PHILLY BALL DPT [address], [place], [address], [facility] 12/16/2023 15:20:25 12/16/19 37174: Low complexity PT Eval completed PHILLY BALL DPT [address], [place], [address], [facility] 12/16/2023 15:20:27 12/09/19 65403 Therapeutic Exercise (1:1) completed Daylin Mascorro, PEDIATRICIAN [address], [place], [address], [facility] 12/09/2023 16:16:22 12/08/19 14327 Therapeutic Exercise (1:1) completed PHILLY BALL DPT [address], [place], [address], [facility] 12/08/2023 09:56:06 12/05/19 07411 Therapeutic Exercise (1:1) completed PHILLY BALL DPT [address], [place], [address], [facility] 12/07/2023 20:54:18 12/05/19 27715: Manual therapy completed PHILLY BALL DPT [address], [place], [address], [facility] 12/07/2023 20:54:27 12/02/19 24 48991 Therapeutic Exercise (1:1) completed PHILLY BALL, DPT [address], [place], [address], [facility] 12/02/2023 18:17:04 12/02/19 24 30703: Low complexity PT Eval completed PHILLY BALL, DPT [address], [place], [address], [facility] 12/02/2023 18:17:06 09/30/19 24 51166: Therapeutic Activities (1:1) completed Sharon Kidd, PT [address], [place], [address], [facility] 10/01/2023 08:32:21 09/30/19 24 11293 Therapeutic Exercise (1:1) completed Sharon Kidd, PT [address], [place], [address], [facility] 10/01/2023 08:32:29 09/30/19 24 02856: Neuromuscular Re-Education completed Sharon Kidd, PT [address], [place], [address], [facility] 10/01/2023 08:32:17 09/26/19 24 05669: Therapeutic Activities (1:1) completed Josie Santiago, PEDIATRICIAN [address], [place], [address], [facility] 09/26/2023 15:51:23 09/26/19 24 66299 Therapeutic Exercise (1:1) completed Josie Santiago, PEDIATRICIAN [address], [place], [address], [facility] 09/26/2023 15:51:19 09/26/19 24 07219: Neuromuscular Re-Education completed Josie Santiago, PEDIATRICIAN [address], [place], [address], [facility] 09/26/2023 15:53:02 09/23/19 67803 Therapeutic Exercise (1:1) completed Josie Santiago, PEDIATRICIAN [address], [place], [address], [facility] 09/23/2023 15:47:57 09/19/19 38044 Therapeutic Exercise (1:1) completed Josie Santiago, PEDIATRICIAN [address], [place], [address], [facility] 09/19/2023 15:46:31 09/16/19 38236 Therapeutic Exercise (1:1) completed Sharon Kidd, PT [address], [place], [address], [facility] 09/15/2023 23:33:49 09/11/19 94345 Therapeutic Exercise (1:1) completed Josie Santiago PEDIATRICIAN [address], [place], [address], [facility] 09/11/2023 16:35:46 09/09/19 59429 Therapeutic Exercise (1:1) cancelled Sharon Kidd, PT [address], [place], [address], [facility] 09/08/2023 23:14:47 09/02/19 09375 Therapeutic Exercise (1:1) completed Sharon Kidd, PT [address], [place], [address], [facility] 09/02/2023 06:54:54 08/28/19 88707 Therapeutic Exercise (1:1) completed Josie Santiago PEDIATRICIAN [address], [place], [address], [facility] 08/28/2023 15:53:09 08/26/19 81937: Moderate complexity PT eval completed Sharon Kidd, PT [address], [place], [address], [facility] 08/27/2023 19:51:19 04/06/19 23 Cardiovascular Surgery completed Enrrique Metcalf PA-C [address], [place], [address], [facility] 07/06/2024 14:46:04 04/06/19 22 Stent completed Enrrique Metcalf PA-C [address], [place], [address], [facility] 07/06/2024 14:46:04 03/02/19 22 Shoulder Surgery completed Enrrique Metcalf PA-C [address], [place], [address], [facility] 07/06/2024 14:46:04 Ankle/Foot Surgery completed Genesis Metcalf PA-C [address], [place], [address], [facility] 07/06/2024 14:46:04 Imaging Results None recorded. Procedure Notes None recorded. Medical Equipment None Reported. Allergies Allergen ID Allergen Name Allergen Category Reaction Reaction Severity Criticality Documentation Date Start Date Code Code System Note Provider Name and Address Organization Details Recorded Time 727591 acetamino phen / oxycodone medicatio n Not available Not available Not available 10/21/2023 40551 3 RxNorm Enrrique Metcalf PA-C [address], [place], [address], [facility] 4 08:30:40 028988 oxycodone medicatio n itching Not available Not available 12/29/2024 7804 RxNorm Not Available maite - External Data Service - prod 5 17:50:07 170187 oxycodone hydrochlo ride medicatio n Not available Not available Not available 12/29/20242022 79475 RxNorm CARMELO KAMINSKI [facility] 5 11:11:18 150731 acetamino phen / oxycodone medicatio n hives Not available Not available 12/29/20242016 09144 3 RxNorm CARMELO xavier [place] - [facility] 11:11:22 Medications Name Sig Start Date Stop Date Status Note LastModified by Organization Details LastModified Time cyclobenzap rine 10 mg tablet TAKE 1 TABLET BY ORAL ROUTE DAILY NEEDED FOR 30 DAYS active Not Available Not Available No t Available amoxicillin 500 mg capsule TAKE 4 CAPSULES BY MOUTH MORNING OF INJECTION 12/06 completed Not Available Not Available Not Available atorvastati n 40 mg tablet TAKE 1 TABLET BY MOUTH EVERY DAY 12/23 completed Not Available Not Available Not Available atorvastati n 80 mg tablet TAKE 1 TABLET BY MOUTH EVERY DAY active Not Available Not Available No t Available venlafaxine ER 75 mg capsule,ext ended release 24 hr TAKE 1 CAPSULE BY MOUTH EVERY DAY active Not Available Not Available No t Available sildenafil 50 mg tablet TAKE 1 TABLET (50 MG) BY ORAL ROUTE ONCE DAILY NEEDED APPROXIMA TELY 1 HOUR BEFORE SEXUAL ACTIVITY 07/05 completed Not Available Not Available Not Available aspirin 325 mg tablet TAKE 1 TABLET EVERY DAY BY ORAL ROUTE WITH MEAL(S) FOR 14 DAYS. 07/05 completed Not Available Not Available Not Available alprazolam 1 mg tablet TAKE 1 TABLET BY MOUTH 1 HOUR PRIOR TO INJECTION 12/06 completed Not Available Not Available Not Available hydrocodone 5 mg-acetamin ophen 325 mg tablet TAKE 1 TABLET EVERY 6 HOURS BY ORAL ROUTE NEEDED FOR 5 DAYS, FOR POSTOPERA TIVE PAIN. 10/18 completed Not Available Not Available Not Available prednisone 20 mg tablet TAKE 2 TABLETS EVERY DAY FOR 4 DAYS THEN REDUCE BY 1 TABLET A DAY FOR 4 DAYS 07/05 completed Not Available Not Available Not Available pantoprazol e 40 mg tablet,pavel yed release TAKE 1 TABLET BY MOUTH EVERY DAY 07/05 completed Not Available Not Available Not Available pseudoephed rine-guaife nesin ER 80-700 mg tablet,exte nded release DO NOT DRIVE WHILE TAKING THIS MEDICATIO N 10/22 completed Statu s: 'Curr ent'; Not Available Not Available Not Available gabapentin 300 mg capsule TAKE 1 CAPSULE BY MOUTH TWICE A DAY 12/23 completed Not Available Not Available Not Available lisinopril 5 mg tablet TAKE 1 TABLET BY MOUTH EVERY DAY 12/23 completed Not Available Not Available Not Available zolpidem 10 mg tablet TAKE 1 TABLET BY MOUTH AT BEDTIME NEEDED 10/22 completed Not Available Not Available Not Available methylpredn isolone 4 mg tablets in a dose pack TAKE BY MOUTH DIRECTED PER PACKAGE INSTRUCTI ONS 10/18 completed Not Available Not Available Not Available colchicine 0.6 mg tablet TAKE 1 TABLET BY MOUTH TWICE A DAY 12/23 completed Not Available Not Available Not Available lisinopril 2.5 mg tablet TAKE 1 TABLET BY MOUTH EVERY DAY 10/22 completed Not Available Not Available Not Available metoprolol tartrate 25 mg tablet TAKE 1 TABLET BY MOUTH TWICE A DAY active Not Available Not Available No t Available zolpidem ER 12.5 mg tablet,exte nded release,mul tiphase TAKE 1 TABLET BY MOUTH AT BEDTIME NEEDED active Not Available Not Available No t Available Benadryl Benadryl 25MG Tablet 02/21 completed Statu s: 'Disc ontin ued'; Not Available Not Available Not Available oxycodone HCl-oxycodo ne-ASA 1 every 4 - 6 hours as needed- pleae do not drive while on this medicatio n 10/22 completed Statu s: 'Curr ent'; Not Available Not Available Not Available Brilinta 90 mg tablet TAKE 1 TABLET BY MOUTH TWICE A DAY 06/07 completed Not Available Not Available Not Available Saxenda 3 mg/0.5 mL (18 mg/3 mL) subcutaneou s pen injector INJECT 0.6 MG BY SUBCUTANE OUS ROUTE ONCE DAILY IN THE ABDOMEN, THIGH, OR UPPER ARM FOR 1 WEEK 10/18 completed Not Available Not Available Not Available Brilinta 60 mg tablet TAKE 1 TABLET BY MOUTH EVERY 12 HOURS 06/07 completed Not Available Not Available Not Available [facility] ODT 12/23 completed Not Available Not Available Not Available Wegovy 2.4 mg/0.75 mL subcutaneou s pen injector INJECT 2.4 MG BY SUBCUTANE OUS ROUTE ONCE WEEKLY ON THE SAME DAY OF EACH WEEK FOR 30 DAYS 03/03 completed Not Available Not Available Not Available Wegovy 1 mg/0.5 mL subcutaneou s pen injector INJECT 1.7 MG BY SUBCUTANE OUS ROUTE ONCE WEEKLY ON THE SAME DAY OF EACH WEEK FOR 4 WEEKS 10/22 completed Not Available Not Available Not Available Wegovy 0.25 mg/0.5 mL subcutaneou s pen injector INJECT 0.25 MG SUBCUTANE OUSLY ONE TIME PER WEEK ON THE SAME DAY OF EACH WEEK active Not Available Not Available No t Available aspirin 81 mg capsule Take 1 capsule every day by oral route. active Not Available Not Available No t Available Zepbound 5 mg/0.5 mL subcutaneou s pen injector INJECT 0.5 MLS BY SUBCUTANE OUS ROUTE ONCE WEEKLY APPROVED PA 07/05 completed Not Available Not Available Not Available Zepbound 7.5 mg/0.5 mL subcutaneou s pen injector INJECT 1 PEN SUBCUTANE OUSLY ONCE WEEKLY 10/18 completed Not Available Not Available Not Available Vitals Date Recorded Body height Body mass index (BMI) Body weight Provider Name and Address Organization Details Last Updated DateTime 10/19/2024 195.58 cm 30.7 kg/m2 828425.42 g Enrrique Metcalf PA-C [address], [place], [address], [facility] 10/19/2024 13:59:08 Date Recorded Body height Body mass index (BMI) Body weight Provider Name and Address Organization Details Last Updated DateTime 12/09/2024 195.58 cm 30.7 kg/m2 063818.42 g Ana Natarajan [facility] 12/09/2024 10:54:57 Date Recorded Body height Body mass index (BMI) Body weight Provider Name and Address Organization Details Last Updated DateTime 12/30/2024 195.58 cm 33.7 kg/m2 396984.23 g CARMELO KAMINSKI [facility] 12/30/2024 11:09:48 Social History Question Answer Notes LastModified by Organizat ion Details LastModified Time Tobacco Smoking Status Never Smoker Enrrique Metcalf PA-C [address], [place], [address], [facility] 06/07/2024 09:32:54 What Is Your Relationship Status? [place] [address] Information not available 06/07/2024 Sex: Unknown Functional Status Question Answer Note LastModified by Organizat ion Details LastModified Time How many times per week do you consume alcohol? Less than 1 time per week [place] [address] Information not available 07/06/2024 Do you use any illicit or recreational drugs? No [place] [address] Information not available 06/07/2024 Do you or have you ever used any other forms of tobacco or nicotine? No [place] [address] Information not available 07/06/2024 What is your level of alcohol consumption? None [place] [address] Information not available 06/07/2024 Do you or have you ever used e-cigarettes or vape? Never used electronic cigarettes [place] [address] Information not available 07/06/2024 Mental Status None recorded. Family History Nothing Reported. Medical History Condition Response Allergies/Hayfever Y Coronary Artery Disease N Anxiety/Depression Y Breathing or lung disorders N Emphysema N Nerve Disorders N Thyroid Problems N COPD N Pacemaker N Anemia N Kidney/Bladder Problems N Vascular Disease Y Heart Trouble Y Heart Attack ([place]) Y Gastrointestinal Disease N Cholesterol Y Diabetes N Autoimmune disease N Bleeding Disorder N Orthotics N Arthritis N Seizures/Epilepsy N Blood Clot N AIDS/HIV N Congestive Heart Failure (CHF) N Acid Reflux (GERD) N Cancer N Stroke N Asthma N Peripheral Vascular Disease N Sleep Apnea Y Hepatitis N Heart Disease N Rheumatoid Arthritis N Arrhythmia N Pulmonary Embolism N Headaches N Fibromyalgia N Hypertension N Osteoporosis N Past Encounters Encounter ID Performer Location Encounter Start Date Encounter Closed Date Diagnosis/Indication Diagnosis SNOMED-CT Code Diagnosis ICD10 Code Diagnosis IMO Codes Diagnosis Note [id number] MD Candida [place] [address] 06/16/2023 14:02:41 07/08/2023 08:30:01 Pain of bilateral knee regions 6100333582 64385 M25.561 Pain of le ft knee joint 3034187058 36[address]25[id number] [place] [address] 07/15/2023 13:35:36 07/28/2023 16:21:56 Derangement of medial meniscus 661016298 M23.869 [id number] Sharon Kidd, PT [facility] [address] [place] [address] 08/26/2023 14:35:53 08/26/2023 16:02:25 Pain of bilateral knee joints 3053149249 25505 M25.561 M25.981 [id number] Josie Santiago, PEDIATRICIAN [facility] [address] [place] [address] 08/28/2023 14:47:25 08/28/2023 15:54:10 Pain of bilateral knee joints 2719755544 57516 M25.561 M25.012 [id number] Sharon Kidd, PT [facility] [address] [place] [address] 09/02/2023 14:56:03 09/03/2023 06:53:43 Pain of bilateral knee joints [id number] 64608 M25.561 M25.620 [id number] Josie Santiago, PEDIATRICIAN [facility] [address] [place] [address] 09/11/2023 15:51:30 09/12/2023 07:37:38 Pain of bilateral knee joints 0121943814 43063 M25.561 M25.270 [id number] Sharon Kidd, PT [facility] [address] [place] [address] 09/16/2023 14:59:22 09/17/2023 06:47:48 Pain of bilateral knee joints 1194247828 63845 M25.561 M25.530 [id number] Josie Santiago, PEDIATRICIAN [facility] [address] [place] [address] 09/19/2023 14:52:58 09/19/2023 15:54:23 Pain of bilateral knee joints 0268753262 91514 M25.561 M25.967 [id number] Josie Santiago, PEDIATRICIAN [facility] [address] [place] [address] 09/23/2023 14:51:15 09/23/2023 15:51:06 Pain of bilateral knee joints 4066591414 65370 M25.561 M25.627 [id number] Josie Santiago, [place] [facility] [address] [place] [address] 09/26/2023 14:51:17 09/27/2023 20:29:26 Pain of bilateral knee joints 5878023045 86032 M25.561 M25.836 [id number] Sharon Kidd, PT [facility] [address] [place] [address] 09/30/2023 14:47:42 10/01/2023 09:13:36 Pain of bilateral knee joints 9067227608 98453 M25.561 M25.684 [id number] Enrrique Metcalf PA-C [place] [address] [facility] [place] [address] 10/21/2023 07:47:43 10/31/2023 15:40:19 Pain of left elbow joint 5272347664 3547321 M25.522 UC Tear of di stal tendon of biceps brachii 627389040 S46.291A [id number] Eleazar Campo PA-C [facility] [address] [place] [address] 10/23/2023 09:18:44 10/23/2023 10:45:08 Pain of right knee joint 2421877145 42278 M25.561 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 8223727331 8413880 M23.434 [id number] EVA Chávez [address] [place] [address] 11/15/2023 10:54:52 12/03/2023 09:17:35 Traumatic rupture of distal tendon of left biceps brachii 8336390904 8650923 S46.212A [id number] [facility] [address] [place] [address] 12/02/2023 13:12:46 12/02/2023 14:53:50 Strain of muscle of upper limb 666798067 S46.212D [id number] [facility] [address] [place] [address] 12/05/2023 15:20:11 12/05/2023 16:05:40 Strain of muscle of upper limb 172213653 S46.212D [id number] [facility] [address] [place] [address] 12/08/2023 09:18:27 12/08/2023 12:58:00 Strain of muscle of upper limb 822419524 S46.212D 051917 [id number] EVA [facility] [address] [place] [address] 12/09/2023 07:30:36 12/09/2023 07:31:46 Pain of right knee joint 6039445975 59532 M25.561 [id number] Tear of me dial meniscus of knee 833977469 S83.241D [id number] JENNIFER [facility] [address] [place] [address] 12/09/2023 13:16:57 12/09/2023 15:16:58 Strain of muscle of upper limb 957901164 S46.212D [id number] [id number] [facility] [address] [place] [address] 12/16/2023 13:19:19 12/16/2023 16:04:27 Tear of medial meniscus of knee 158317576 S83.241D 050023 Follow-up status 0051775 05 Z47.89 641321 [id number] EVA Marin [address] [place] [address] 12/22/2023 13:09:35 01/22/2024 11:20:11 Tear of medial meniscus of knee 066518647 S83.241D Osteoarthr itis of left knee joint 6226099282 91414 M17.12 [id number] MD Candida Pérez Clinical [address] [place] [address] 12/29/2023 10:40:39 01/22/2024 10:05:50 Primary gonarthrosis, bilateral 142822406 M17.0 9001299 [id number] Daylin Walton r, PEDIATRICIAN [facility] [address] [place] [address] 01/01/2024 13:25:02 01/01/2024 14:54:01 Tear of medial meniscus of knee 207192936 S83.241D [id number] Follow-up status 0422438 05 Z47.89 111576 [id number] Daylin Walton r, PEDIATRICIAN [facility] [address] [place] [address] 01/05/2024 11:19:07 01/05/2024 12:18:28 Tear of medial meniscus of knee 024745022 S83.241D [id number] Follow-up status 4415582 05 Z47.89 866002 [id number] EVA Chávez [address] [facility] [address] 01/05/2024 13:25:44 01/22/2024 08:31:42 Right lateral elbow tendinopathy 9210390494 90133 M77.11 [id number] Rupture of tendon of biceps 382882353 S46.212D [id number] [id number] Daylin newell, PEDIATRICIAN [facility] [address] [place] [address] 01/07/2024 11:18:42 01/07/2024 12:48:32 Tear of medial meniscus of knee 297172984 S83.241D [id number] Follow-up status 1657355 05 Z47.89 529622 [id number] PHILLY BALL DPT [facility] [address] [place] [address] 01/13/2024 13:22:56 01/13/2024 14:48:58 Tear of medial meniscus of knee 854008933 S83.241D [id number] Follow-up status 9090896 05 Z47.89 130795 [id number] EVA Lentz [address] [facility] [address] 03/06/2024 08:01:43 03/18/2024 10:31:51 Pain of hip region 23245264 M25.551 [id number] Trochanter ic bursitis of right hip 9513273192 30382 M70.61 [id number] MD RAINER Pérez [address] floor [address] [place] [address] 04/09/2024 10:16:13 04/20/2024 11:55:27 Acute meniscal tear, medial 296506600 S83.232D [id number] [id number] [facility] [address] [place] [address] 05/31/2024 14:20:45 05/31/2024 15:36:20 Follow-up status 551725643 Z47.89 078548 Tear of me dial meniscus of left knee joint 7509770467 7104 S83.242D [id number] [facility] [address] [place] [address] 06/02/2024 11:38:22 06/02/2024 12:25:23 Follow-up status 562189916 Z47.89 373199 Tear of me dial meniscus of left knee joint 3989193725 7104 S83.242D [id number] [id number] EVA Chávez [address] [place] [address] 06/07/2024 09:23:29 06/11/2024 07:23:49 History of operative procedure on knee 855915092 Z98.890 [id number] [facility] [address] [place] [address] 06/07/2024 14:44:24 06/07/2024 15:51:25 Follow-up status 074320071 Z47.89 [id number] Tear of me dial meniscus of left knee joint 1891851404 7104 S83.242D [id number] [facility] [address] [place] [address] 06/09/2024 14:47:14 06/09/2024 15:48:09 Follow-up status 085051257 Z47.89 312332 Tear of me dial meniscus of left knee joint 7082343412 7104 S83.242D [id number] [id number] Daylin Walton r, PEDIATRICIAN [facility] - [facility] [address] [place] [address] 06/14/2024 12:46:29 06/14/2024 14:10:41 Follow-up status 020580564 Z47.89 [id number] Tear of me dial meniscus of left knee joint 7269318371 7104 S83.242D [id number] Daylin Lynnste r, PEDIATRICIAN [place] - [facility] [address] [place] [address] 06/23/2024 14:39:43 06/23/2024 15:26:40 Follow-up status 003596693 Z.89 203841 Tear of me dial meniscus of left knee joint 6449918106 7104 S83.242D [id number] PHILLY BALL, DPT [facility] - [facility] [address] [place] [address] 06/28/2024 14:42:34 06/28/2024 15:54:38 Follow-up status 436571680 Z47.89 061012 Tear of me dial meniscus of left knee joint 1724413238 7104 S83.242D [id number] PHILLY BALL, DPT [facility] [address] [place] [address] 06/30/2024 14:52:11 06/30/2024 15:27:40 Follow-up status 076076040 Z47.89 321753 Tear of me dial meniscus of left knee joint 8980872387 7104 S83.242D [id number] EVA Chávez [address] [place] [address] 07/06/2024 14:38:02 07/14/2024 15:50:33 Osteoarthritis of right knee joint 2595870782 53404 M17.11 4872915 [id number] Daylin Walton r, PEDIATRICIAN [facility] - [facility] [address] [place] [address] 07/12/2024 14:33:28 07/12/2024 15:30:24 Follow-up status 304489360 Z47.89 [id number] Tear of me dial meniscus of left knee joint 1534733447 7104 S83.242D [id number] Daylin Walton r, PEDIATRICIAN [place] - [facility] [address] [place] [address] 07/14/2024 14:41:32 07/14/2024 15:42:51 Follow-up status 584767749 Z47.89 823101 Tear of me dial meniscus of left knee joint 1391992692 7104 S83.242D [id number] [facility]A [facility] [address] [place] [address] 10/19/2024 13:52:03 10/29/2024 06:22:48 Osteoarthritis of right knee joint 8056897487 05883 M17.11 [id number] EVA Lentz [address] [facility] [place] [address] 12/09/2024 10:40:56 12/16/2024 14:08:02 Trochanteric bursitis of right hip 5060970412 77229 M70.61 [id number] MD RAINER [facility] [address] [place] [address] 12/30/2024 10:46:39 12/30/2024 12:28:47 Pain of knee region 1066254536 M25.561 M25.562 G89.29 [id number] Primary go narthrosis, bilateral 836058959 M17.0 [id number] Health Concerns Section Related Observation LastModified by Organization Detai ls LastModified Time None Recorded Concern Status LastModified by Organization Details LastModified Time None Recorded Advance Directives Directive None Recorded Payers Insurance Date Sequence Insurance Name Policy Number Policy Pepe Covered Member ID Pepe Member ID Guarantor Name 12/29/2024 1 [facility] [id number] 1 Terri Mittal [id number] Terri Mittal 12/29/2024 1 [facility] INDEMNITY PLAN (PPO) [id number] Terri Mittal [id number] Terri Mittal Notes Date Note Type Note Provider Name and Address Organization Details Recorded Time 07/12/2024 text/html Pt reports that he had a follow up with PA and got a cortisone shot, states knee is feeling better. Daylin Mascorro, PEDIATRICIAN [address], [place], [address], [facility] 07/12/2024 15:36:01 07/14/2024 text/html Pt reports cont good improvement in his knee Daylin Mascorro, PEDIATRICIAN [address], [place], [address], [facility] 07/14/2024 16:16:26 10/19/2024 text/html I am seeing the patient today under the supervision of Dr. Meyer who was available but who did not see the patient. HPI: Patient comes in today for evaluation and chief complaint of bilateral knee pain. He is status post left knee arthroscopy had some focal grade 4 changes in the patella and trochlea which was managed conservatively. He reports increased pain and discomfort with moderate swelling in both knees with functional ADLs. Concerned by this, the patient is now referred to office for orthopedic evaluation. Clinical Update: Patient comes in today for follow-up evaluation he reports increased pain and discomfort still in both knees. His recently has been diagnosed with a seizure disorder and therefore he is heavily dependent upon for all transportation. He also has some coexisting hip issues which has been managed by one of my colleagues over the years. We talked briefly today about the role of total knee arthroplasty when he can drive and what the primary recovery looks like. Extremities: Calves are soft and nontender. Skin on lower extremities is intact. Palpable pedal pulses bilaterally. Orthopedic Exam: Examination of the knee demonstrates restricted range of motion good anterior-posterior stability no laxity valgus or varus stressing. Exquisite medial and the lateral joint line tenderness with patellofemoral crepitus noted, 1+ effusion, 4/5 strength. Assessment: Bilateral knee osteoarthritis Plan: The patient was thoroughly counseled today regarding their knee condition, its natural history, and the treatment options both nonoperative and operative. The patient is interested in receiving an injection with corticosteroid, reviewed safety risks of temporary elevation of glycemic control, cortisol flushing, small risk of elevated blood pressure as potential side effects after an injection today. Additionally reemphasized the benefits of physical therapy, stressed the importance of compliance regarding home exercises moving forward. [employer] speech recognition file drawer finisher software was used to create portions of this document. An attempt at proofreading has been made to minimize errors. Please call for corrections Enrrique Metcalf PA-C [address] [place] [address] [address], [place], [address], [facility] 10/19/2024 14:11:44
--- OUTSIDE RECORDS SUMMARY | 2025-01-05 11:40 | XMS_ITS | Encounter Summary ---
Author Organization [facility] Address [address] [place] [address] [place] [phone] Phone Care Team Providers Care Warehouse Driver Name Role Phone Levar Drake MD Primary Care Provider [phone] Encounter Details Date Type Department Care Team (Late st Contact Info) Description 03/02/2018 Procedure Pass [address] [place] [address] Social History Tobacco Use Types Packs/Day Years [...] on filedocumented in this encounter Care Teams Warehouse Driver Relationship Specialty Start Date End Date Levar Drake MD [address] [place] [address] PCP - General 11/28/16 documented as of this encounter Additional Source Comments The information contained in this document represents components of the legal health record. It is not the complete legal health record.[facility]
--- OUTSIDE RECORDS SUMMARY | 2025-01-05 11:40 | XMS_ITS | Encounter Summary ---
Author Organization [facility] Address [address] [place] [address] Care Team Providers Care Woven Paper Hat Mender Name Role Phone Levar Drake MD Primary Care Provider [phone] Reason for Visit * Reason Onset Date Comments Pre-op Visit 12/31/2024 Encounter Details Date Type Department Care Team ([facility] st Contact Info) Description 12/31/2024 Telephone [facility] [address] [facility] [address] [place] [phone] Dario Butler MD [address] [place] [address] [place] [phone] Social History Tobacco Use Types Packs/Day Years [...] on file documented as of this encounter Progress Notes * Hien Vázquez - 12/31/2024 11:41 AM EST Spoke with Denisse and the patient, booked for 02/01/25 with Rosa Li. * Sherrie Ernst - 12/31/2024 9:44 AM EST Pre Op Request Type Of Surgery: Right total knee replacement EKG Needed:yes Date Of Surgery:03/04/25 Performing Doctor:Dr. Harvey Whitney Name of Caller/ Facility:[facility] Phone number:[phone] Fax Number:[phone] Denisse from [facility] is Out of office thanksgiving to January 31. documented in this encounter Plan of Treatment Upcoming Encounters Date Type Department Care Team (Late st Contact Info) Description 02/01/2025 1:40 PM EST Consult [facility] [address] [place] [address] Rosa Li NP [address] [place] [address] Dr Alvarado [address] [place] [phone] 04/27/2025 9:50 AM EDT Office Visit [facility] [address] [place] [address] Dario Butler MD [address] [place] [address] [place] [address] documented as of this encounter Visit Diagnoses Not on filedocumented in this encounter Care Teams Woven Paper Hat Mender Relationship Specialty Start Date End Date Levar Drake MD [address] [place] [address] PCP - General 06/12/15 documented as of this encounter
--- OUTSIDE RECORDS SUMMARY | 2025-01-05 11:40 | XMS_ITS | Clinical Summary ---
Author Organization [address] [place] [address] [place] [phone] Phone Care Team Providers Care Technician Chemical Cleaning Name Role Phone Levar Drake MD Primary Care Provider [phone] Allergies Active Allergy Reactions Criticality Noted Date Comments Oxycodone Hcl 04/29/2022 Medications senna (SENOKOT) 8.6 mg tablet Take 1 [...] MOUTH TWICE A DAY 180 tablet 2 5 Active atorvastatin (LIPITOR) 80 mg tablet TAKE 1 TABLET BY MOUTH EVERY DAY 90 tablet 3 5 Active sildenafiL (VIAGRA) 50 mg tablet Take 1 tablet (50 mg total) by mouth 1 (one) time each day if needed for erectile dysfunction. 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 ([facility] V24, [facility] V28) 04/22/2023 CAD in [place] artery 05/29/2022 Overview (04/14/2024): Last Assessment & [...] Assessment & Plan (04/27/2024 10:10 AM EDT): Encounters Date Type Department Care Team Description 12/31/2024 Telephone [facility] [address] [place] [address] Dario Butler MD 11/23/2024 Telephone [facility] - [address] [place] [phone] Dario Butler MD from Last 3 Months Medical History Medical History Date Comments Class [...] 06/14/2024 11:37 AM EDT Plan of Treatment Upcoming Encounters Date Type Department Care Team (Late st Contact Info) Description 02/01/2025 1:40 PM EST Consult [facility] [address] [place] [address] Rosa Li NP [address] [place] [address] Dr Alvarado [address] [place] [phone] 04/27/2025 9:50 AM EDT Office Visit [facility] [address] [place] [phone] Dario Butler MD [address] [place] [address] Dr Alvarado [address] [place] [phone] Health Maintenance Due Date Last Done Comments Colorectal Cancer Screening: Colonoscopy 1963 DTaP,Tdap,and Td Vaccines (1 - Tdap) 1982 Pneumococcal Vaccine: 50+ Years (1 of 2 - PCV) 1982 RSV Immunization Adult Patients (1 - Risk 50-74 years 1-dose series) 2013 Zoster Vaccines (2 of 2) 04/06/2020 02/10/2020, 10/2019 HIV Screening 03/06/2023 Hepatitis C Screening 03/06/2023 Social Influencers of Health Screening 03/06/2023 Depression Screening 02/11/2024 COVID-19 Vaccine ( season) 2024 01/30/2024, 11/20/2022, 12/28/2021, Additional history exists Influenza Vaccine (#1) 2024 , 11/19/2022, 11/26/2021, Additional history exists Hypertension/CHF/CAD Annual BMP Blood Test 04/27/2025 04/27/2024 Cholesterol Screening (Lipid Panel) 04/27/2029 04/27/2024, 11/19/2022 HIB Vaccines Aged Out No longer eligi [...] 10:39 AM EDT Ischemic cardiomyopathy CAD in [place] artery Hyperlipidemia, unspecified hyperlipidemia type from Last 3 Months or Most Recently Relevant to Health Maintenance Results * Lipid panel with reflex to direct LDL (04/27/2024 10:39 AM EDT) Cholesterol 155 0 - 200 mg/dL LAB CHEMISTRY METHOD 04/27/2024 1:00 PM EDT [facility] Triglycerides 127 0 - 150 mg/dL LAB CHEMISTRY METHOD 04/27/2024 1:00 PM EDT [facility] HDL 57 >=40 mg/dL LAB CHEMISTRY METHOD 04/27/2024 1:00 PM EDT [facility] LDL Calculated 73 0 - 100 mg/dL LAB CHEMISTRY METHOD 04/27/2024 1:00 PM EDT [facility] VLDL Cholesterol Artur 25.4 mg/dL LAB CHEMISTRY METHOD 04/27/2024 1:00 PM EDT [facility] Non HDL Chol. (LDL+VLDL) 98 <145 mg/dL LAB CHEMISTRY METHOD 04/27/2024 1:00 PM EDT [facility] Chol/HDL Ratio 2.7 0.0 - 4.4 LAB CHEMISTRY METHOD 04/27/2024 1:00 PM T [facility] Blood Venous blood specimen / Unknown Venipuncture / Unknown 04/27/2024 10:39 AM EDT 04/27/2024 11:30 AM EDT Rosa Li BINDERY WORKER LAB BLOOD ORDERABLES Final Result [facility] [address] [place] [address], * Basic metabolic panel (04/27/2024 10:39 AM EDT) Sodium 136 133 - 145 mmol/L LAB CHEMISTRY METHOD 04/27/2024 1:00 PM T [facility] Potassium 4.2 3.5 - 5.5 mmol/L LAB CHEMISTRY METHOD 04/27/2024 1:00 PM [facility] Chloride 103 96 - 110 mmol/L LAB CHEMISTRY METHOD 04/27/2024 1:00 PM [facility] CO2 26 21 - 32 mmol/L LAB CHEMISTRY METHOD 04/27/2024 1:00 PM [facility] Anion Gap 7 3 - 11 LAB CHEMISTRY METHOD 04/27/2024 1:00 PM [facility] Glucose 100 70 - 100 mg/dL LAB CHEMISTRY METHOD 04/27/2024 1:00 PM EDT [facility] BUN 9 5 - 25 mg/dL LAB CHEMISTRY METHOD 04/27/2024 1:00 PM EDT [facility] Creatinine 0.89 0.70 - 1.30 mg/dL LAB CHEMISTRY METHOD 04/27/2024 1:00 PM EDT [facility] eGFR 97 >=60 mL/min/1. 73m2 LAB CHEMISTRY METHOD 04/27/2024 1:00 PM EDT [facility] Comment:Calculation based on the Chronic Kidney Disease Epidemiology Collaboration (CKD-EPI) equation refit without adjustment for race. BUN/Creatinine Ratio 10.1 LAB CHEMISTRY METHOD 04/27/2024 1:00 PM EDT [facility] Calcium 9.5 8.5 - 10.5 mg/dL LAB CHEMISTRY METHOD 04/27/2024 1:00 PM EDT [facility] Blood Venous blood specimen / Unknown Venipuncture / Unknown 04/27/2024 10:39 AM EDT 04/27/2024 11:30 AM EDT Rosa Li NP LAB BLOOD ORDERABLES Final Result [facility] [address] [place] [address], from Last 3 Months or Most Recently Relevant to Health Maintenance Insurance [facility] Care Teams Technician Chemical Cleaning Relationship Specialty Start Date End Date Levar Drake MD [address] [place] [address] PCP - General 06/12/15
--- OUTSIDE RECORDS SUMMARY | 2025-01-05 11:40 | XMS_ITS | Continuity of Care Document ---
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 Normal insight, affect and grooming. 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 No spasticity [...] questions or concerns that they might have. [email or web address] Not available 12/30/2024 12:28:17 Plan of Treatment Reminders Order Date Submit Date Provider Last Modified By Organization Details Last Modified Time Details Appointments NORBERTO Santana&Robert 2025 09:30A M Koko Soto NP Not available Not available Not available SURGERY @ [facility] 2025 09:30A M Harvey Whitney MD Not available Not available Not available POST OP 2025 08:45A M Dea Corrales CNP Not available Not available Not available POST OP 2025 08:45A Shaggy Corrales CNP Not available Not available Not available RECHECK 2025 09:40A M Harvey Whitney MD Not available Not available Not available Lab None recorded . Referral None recorded . Procedures None recorded . Surgeries None recorded . Imaging XR, knee, 4 or more view - 4 b knee 4v 2024 025 [facility], [address] [facility], [facility] [address], [place], [address], 12/30/2024 13:01:54 Medication Orders None recorded . Patient TargetsNo targets recorded. Patient InstructionsNo instructions recorded. Reason for Referral None Reported. Results Created Date Observation Date Name Description Value Unit Range Abnormal Flag Note LastModifiedBy Organization Detail LastModifiedTime 12/31/1912/30/2024 CBC WITH DIFFE RENTI AL/PL ATELE T WBC 9.5 x10e3 /uL 3.4-10 .8 normal Not Available [facility] ([facility]) [address] [facility], [place], [address], 12/31/2024 06:05:31 12/31/19 25 12/30/2024 CBC WITH DIFFE RENTI AL/PL ATELE T RBC 4.90 x10e6 /uL 4.14-5 .80 normal Not Available [facility] ([facility]) [address] [place], [address], 12/31/2024 06:05:31 12/31/19 25 12/30/2024 CBC WITH DIFFE RENTI AL/PL ATELE T hemoglobin 15.2 g/dL 13.0-1 7.7 normal Not Available [facility] ([facility]) [address] [place], [address], 12/31/2024 06:05:31 12/31/19 25 12/30/2024 CBC WITH DIFFE RENTI AL/PL ATELE T hematocrit 44.5 % 37.5-5 1.0 normal Not Available [facility] ([facility]) [address] [place], [address], 12/31/2024 06:05:31 12/31/19 25 12/30/2024 CBC WITH DIFFE RENTI AL/PL ATELE T MCV 91 fL 79-97 normal Not Available [facility] ([facility]) [address] [place], [address], 12/31/2024 06:05:31 12/31/19 25 12/30/2024 CBC WITH DIFFE RENTI AL/PL ATELE T MCH 31.0 pg 26.6-3 3.0 normal Not Available [facility] ([facility]) [address] [place], [address], 12/31/2024 06:05:31 12/31/19 25 12/30/2024 CBC WITH DIFFE RENTI AL/PL ATELE T MCHC 34.2 g/dL 31.5-3 5.7 normal Not Available [facility] ([facility]) [address] [place] [address], [address], 12/31/2024 06:05:31 12/31/19 25 12/30/2024 CBC WITH DIFFE RENTI AL/PL ATELE T RDW 13.2 % 11.6-1 5.4 Not Available [facility] ([facility]) [address] [facility], [place], [address], 12/31/2024 06:05:31 12/31/19 25 12/30/2024 CBC WITH DIFFE RENTI AL/PL ATELE T platelets 204 x10e3 /uL 150-45 0 normal Not Available [facility] ([facility]) [address] [facility], [place], [address], 12/31/2024 06:05:31 12/31/19 25 12/30/2024 CBC WITH DIFFE RENTI AL/PL ATELE T neutrophils 43 % not estab. normal Not Available [facility] ([facility]) [address] [facility], [place], [address], 12/31/2024 06:05:31 12/31/19 25 12/30/2024 CBC WITH DIFFE RENTI AL/PL ATELE T lymphs 42 % not estab. normal Not Available [facility] ([facility]) [address] [facility], [place], [address], 12/31/2024 06:05:31 12/31/19 25 12/30/2024 CBC WITH DIFFE RENTI AL/PL ATELE T monocytes 10 % not estab. normal Not Available [facility] ([facility]) [address] [facility], [place], [address], 12/31/2024 06:05:31 12/31/19 25 12/30/2024 CBC WITH DIFFE RENTI AL/PL ATELE T eos 3 % not estab. normal Not Available [facility] ([facility]) [address] [facility], [place], [address], 12/31/2024 06:05:31 12/31/19 25 12/30/2024 CBC WITH DIFFE RENTI AL/PL ATELE T basos 1 % not estab. normal Not Available [facility] ([facility]) [address] [facility], [place], [address], 12/31/2024 06:05:31 12/31/19 25 12/30/2024 CBC WITH DIFFE RENTI AL/PL ATELE T immature cells SOLDERING INSPECTOR Not Available [facility] ([facility]) [address] [place], [address], 12/31/2024 06:05:31 12/31/19 25 12/30/2024 CBC WITH DIFFE RENTI AL/PL ATELE T neutrophils (absolute) 4.2 x10e3 /uL 1.4-7. 0 normal Not Available [facility] ([facility]) [address] [place], [address], 12/31/2024 06:05:31 12/31/19 25 12/30/2024 CBC WITH DIFFE RENTI AL/PL ATELE T lymphs (absolute) 3.9 x10e3 /uL 0.7-3. 1 above high normal Not Available [facility] ([facility]) [address] [place], [address], 12/31/2024 06:05:31 12/31/19 25 12/30/2024 CBC WITH DIFFE RENTI AL/PL ATELE T monocytes(ab solute) 1.0 x10e3 /uL 0.1-0. 9 above high normal Not Available [facility] ([facility]) [address] [place], [address], 12/31/2024 06:05:31 12/31/19 25 12/30/2024 CBC WITH DIFFE RENTI AL/PL ATELE T eos (absolute) 0.3 x10e3 /uL 0.0-0. 4 normal Not Available [facility] ([facility]) [address] [place], [address], 12/31/2024 06:05:31 12/31/19 25 12/30/2024 CBC WITH DIFFE RENTI AL/PL ATELE T baso (absolute) 0.1 x10e3 /uL 0.0-0. 2 normal Not Available [facility] ([facility]) [address] [facility], [place], [address], 12/31/2024 06:05:31 12/31/19 25 12/30/2024 CBC WITH DIFFE RENTI AL/PL ATELE T immature granulocytes 1 % not estab. Not Available [facility] ([facility]) [address] [facility], [place], [address], 12/31/2024 06:05:31 12/31/19 25 12/30/2024 CBC WITH DIFFE RENTI AL/PL ATELE T immature grans (abs) 0.1 x10e3 /uL 0.0-0. 1 Not Available [facility] ([facility]) [address] [facility], [place], [address], 12/31/2024 06:05:31 12/31/19 25 12/30/2024 CBC WITH DIFFE RENTI AL/PL ATELE T NRBC SOLDERING INSPECTOR Not Available [facility] ([facility]) [address] [facility], [place], [address], 12/31/2024 06:05:31 12/31/19 25 12/30/2024 CBC WITH DIFFE RENTI AL/PL ATELE T hematology comments: SOLDERING INSPECTOR Not Available [facility] ([facility]) [address] [facility], [place], [address], 12/31/2024 06:05:31 12/31/19 25 12/30/2024 ELECT ROLYT E PANEL sodium 141 mmol/ L 134-14 4 normal Not Available [facility] ([facility]) [address] [place], [address], 12/31/2024 06:05:32 12/31/19 25 12/30/2024 ELECT ROLYT E PANEL potassium 4.7 mmol/ L 3.5-5. 2 normal Not Available [facility] ([facility]) [address] [place], [address], 12/31/2024 06:05:32 12/31/19 25 12/30/2024 ELECT ROLYT E PANEL chloride 102 mmol/ L 96-106 normal Not Available [facility] ([facility]) [address] [facility], [place], [address], 12/31/2024 06:05:32 12/31/19 25 12/30/2024 ELECT ROLYT E PANEL carbon dioxide, total 30 mmol/ L 20-29 above high normal Not Available [facility] ([facility]) [address] [place], [address], 12/31/2024 06:05:32 12/31/19 25 12/30/2024 BUN+C REAT BUN 14 mg/dL 8-27 normal Not Available [facility] ([facility]) [address] [place], [address], 12/31/2024 06:05:32 12/31/19 25 12/30/2024 BUN+C REAT creatinine 0.94 mg/dL 0.76-1 .27 normal Not Available [facility] ([facility]) [address] [place], [address], 12/31/2024 06:05:32 12/31/19 25 12/30/2024 BUN+C REAT eGFR 92 mL/mi n/1.7 3 >59 normal Not Available [facility] ([facility]) [address] [place], [address], 12/31/2024 06:05:32 12/31/19 25 12/30/2024 BUN+C REAT BUN/creatini ne ratio 15 10-24 normal Not Available [facility] ([facility]) [address] [place], [address], 12/31/2024 06:05:32 12/31/19 25 12/31/2024 PROTH ROMBI [...] range 2.5 - 3.5 Not Available [facility] ([facility]) [address] [place], [address], 12/31/2024 06:05:32 12/31/1912/31/2024 PROTH ROMBI N TIME (PT) prothrombin time 9.5 sec 9.1-12 .0 normal Not Available [facility] ([facility]) [address] [place], [address], 12/31/2024 06:05:32 12/31/1912/31/2024 HEMOG LOBIN A1C hemoglobin A1C 5.9 % 4.8-5. 6 above high normal Predi abete s: 5.7 - 6.4 Diabe juvenal: >6.4 Glyce lucina contr ol for adult s with diabe juvenal: <7.0 Not Available [facility] ([facility]) [address] [place], [address], 12/31/2024 06:05:33 12/31/1912/31/2024 PTT, ACTIV ATED APTT 25 sec 24-33 normal This test has not been valid ated for monit oring unfra ction ated hepar in thera py. aPTT- based thera peuti c range s for unfra ction ated hepar in thera py have not been estab geovany garcia For gener al guide lines on Hepar in monit oring , refer to the [facility] Direc meg of Derrick coombs. Not Available [facility] ([facility]) [address] [place], [address], 12/31/2024 06:05:33 12/31/19 25 12/30/2024 GLUCO SE glucose 93 mg/dL 70-99 normal Not Available [facility] ([facility]) [address] [facility], [place], [address], 12/31/2024 06:05:33 12/31/19 25 12/30/2024 XR, knee, 4 or more view http:/ [email or web address] ?Encry pted=s hAaTro YD8dLq bEUv6g %2BXZw aYqtaq 0bqfl% 2Fg9IQ a4ajBk vP9nXo QUaueC m3YtLR FvZlgJ JJ8mAn HZtai3 5b1794 AC0KlY 3uAU6W hKiQtr MwF INTERFACE [facility] Office [address] [facility] [address], [place], [address], 12/30/2024 11:06:05 12/31/19 25 12/30/2024 XR, knee, 4 or more view [email or web address]:/ [email or web address] ?Encry pted=s hAaTro YD8dLq bEUv6g %2BXZw aYqtaq 0bqfl% 2Fg9IQ a4ajBk vP9nXo QUaueC m3YtLR FvZlgJ JJ8mAn HZtai3 6x4244 AC0KlY 3uAU6W hKiQtr MwF INTERFACE [facility] Office [address] [facility] [address], [place], [address], 12/30/2024 11:06:06 Result Notes Documentation Provider Name and Address Organization Details Recorded Time Xr, Knee, 4 Or More View : [email or web address] Encrypted=kyEoXmhHB0sOznH Uv6g%1EPAihFiqvn0freb%2Fg 6BLl2otQuqA1kOdWArrxMm7Vr KRWpPowEOR2sLwBEnfa30w369 2FC4WcR9xDS8RqSbJsoTcS Not Available [employer] 12/30/2024 11:06: 05 Xr, Knee, 4 Or More View : [email or web address] Encrypted=yuRuWunSR8zEpgG Uv6g%9KWTxnOfzmk3nyke%2Fg 7ZWx8ozNlmK2uHdXVftoLo8Qh KWAtYodQFY9jXfWMyil08w449 5OK6GkL6mVI9AsYsKqcPqK Not Available [facility] 12/30/2024 11:06: 07 Problems Name Problem SNOMED Code Status Onset Date Resolution Date Notes Provider Name and Address Organization Details Recorded Time Idiopathi c osteoarth ritis 219265000 Active 2016 Problem Code: M17.0; Problem Code Type: ICD-10; Status: 'A'; Not Available [facility] 4 11:13:42 Sprain of shoulder 1381174 Active 2016 Problem Code: S43.82XA ; Problem Code Type: ICD-10; Status: 'A'; Not Available [facility] 4 11:13:42 Tear of medial meniscus of knee 651734381 Active 2016 Problem Code: S83.242A ; Problem Code Type: ICD-10; Status: 'A'; Not Available [facility] 4 11:13:42 Pain of left elbow joint 744122946142 24445 Active 2023 Enrrique Metcalf PA-C [address], [place], [address] , [facility] 4 08:31:05 Tear of distal tendon of biceps brachii 469863264 Active 2023 Enrrique Metcalf PA-C [address], [place], [address] , [facility] 4 08:44:12 Traumatic rupture of distal tendon of left biceps brachii 255633203329 Active 2023 Enrrique Metcalf PA-C [address], [place], [address] , [facility] 4 06:48:06 Right lateral elbow tendinopa thy 943361272792 107 Active 2023 Enrrique Metcalf PA-C [address], [place], [address] , [facility] 4 14:00:50 Strain of hamstring tendon 453893985 Active 2023 Enrrique Metcalf PA-C [address], [place], [address] , [facility] 4 14:01:04 Rupture of tendon of biceps 564832752 Active 2023 Enrrique Metcalf PA-C [address], [place], [address] , [facility] 4 14:01:37 Osteoarth ritis of right knee joint 917366373174 100 Active 2024 Enrrique Metcalf PA-C [address], [place], [address] , [facility] 5 14:50:20 Pain of knee region 8146537761 Active 2024 [facility] 5 10:58:20 Problem Notes None recorded. Procedures Surgical History Date Name Laterality Status Provider Name and Address Organization Details Recorded Time 12/10/19 25 JZHip completed Tomasz Kumar PA-C [address], [place], [address], [facility] 12/09/2024 11:20:52 10/20/19 Knee Kenalog 40 1cc Injection, Bilateral completed Enrrique Metcalf PA-C [address], [place], [address], [facility] 10/19/2024 08:36:07 07/15/19 25 [id number] Therapeutic Exercise (1:1) completed Daylin Mascorro PTA [address], [place], [address], [facility] 07/14/2024 14:55:23 07/13/19 25 [id number] Therapeutic Exercise (1:1) completed Daylin Mascorro PTA [address], [place], [address], [facility] 07/12/2024 14:43:43 07/07/19 25 Knee Kenalog 40 1cc Injection, Bilateral completed Enrrique Metcalf PA-C [address], [place], [address], [facility] 07/06/2024 14:50:36 07/01/19 46178 Therapeutic Exercise (1:1) completed PHILLY BALL DPT [address], [place], [address], [facility] 06/30/2024 15:43:42 06/29/19 18912 Therapeutic Exercise (1:1) completed PHILLY BALL DPT [address], [place], [address], [facility] 06/28/2024 15:32:27 06/24/19 25 13240 Therapeutic Exercise (1:1) completed Daylin Mascorro PTA [address], [place], [address], [facility] 06/23/2024 14:59:50 06/15/19 52117 Therapeutic Exercise (1:1) completed Daylin Mascorro PTA [address], [place], [address], [facility] 06/14/2024 11:42:05 06/10/19 25 36066 Therapeutic Exercise (1:1) completed PHILLY BALL DPT [address], [place], [address], [facility] 06/09/2024 16:11:07 06/08/19 25 02039 Therapeutic Exercise (1:1) completed PHILLY BALL DPT [address], [place], [address], [facility] 06/08/2024 10:30:58 06/03/19 28809 Therapeutic Exercise (1:1) completed PHILLY BALL DPT [address], [place], [address], [facility] 06/02/2024 12:21:59 06/01/19 25 71003 Therapeutic Exercise (1:1) completed PHILLY BALL DPT [address], [place], [address], [facility] 05/31/2024 15:33:54 06/01/19 67970: Low complexity PT Eval completed PHILLY BALL DPT [address], [place], [address], [facility] 05/31/2024 15:33:59 05/29/19 25 Orthopedic Surgery completed Enrrique Metcalf PA-C [address], [place], [address], [facility] 07/06/2024 14:46:04 03/06/19 25 JZHip Inj completed Tomasz Kumar PA-C [address], [place], [address], [facility] 03/06/2024 08:30:40 01/13/20 48625 Therapeutic Exercise (1:1) completed PHILLY BALL DPT [address], [place], [address], [facility] 01/13/2024 13:38:03 01/07/20 15345 Therapeutic Exercise (1:1) completed Daylin Mascorro PTA [address], [place], [address], [facility] 01/07/2024 11:20:54 01/05/20 68387 Therapeutic Exercise (1:1) completed Daylin Mascorro PTA [address], [place], [address], [facility] 01/05/2024 14:21:17 01/01/20 74495 Therapeutic Exercise (1:1) completed Daylin Mascorro RN [facility] [address], [place], [address], [facility] 01/01/2024 15:23:33 12/29/19 Knee Depo 1cc Injection, Bilateral completed Jeff Mixon MD [address], [place], [address], [facility] 12/29/2023 12:10:59 12/16/19 77669 Therapeutic Exercise (1:1) completed PHILLY BALL DPT [address] [facility], [place], [address], [facility] 12/16/2023 15:20:25 12/16/19 83919: Low complexity PT Eval completed PHILLY BALL DPT [address], [place], [address], [facility] [employer] [facility] 12/16/2023 15:20:27 12/09/19 73563 Therapeutic Exercise (1:1) completed Daylin Mascorro RN [facility] [address], [place], [address], [facility] [employer] [facility] 12/09/2023 16:16:22 12/08/19 76736 Therapeutic Exercise (1:1) completed PHILLY BALL DPT [address], [place], [address], [facility] 12/08/2023 09:56:06 12/05/19 37011 Therapeutic Exercise (1:1) completed PHILLY BALL DPT [address], [place], [address], [facility] 12/07/2023 20:54:18 12/05/19 60842: Manual therapy completed PHILLY BALL DPT [address], [place], [address], [facility] 12/07/2023 20:54:27 12/02/19 24 54684 Therapeutic Exercise (1:1) completed PHILLY BALL DPT [address], [place], [address], [facility] 12/02/2023 18:17:04 12/02/19 24 69228: Low complexity PT Eval completed PHILLY BALL DPT [address], [place], [address], [facility] 12/02/2023 18:17:06 09/30/19 24 50984: Therapeutic Activities (1:1) completed Sharon Kidd, PT [address], [place], [address], [facility] 10/01/2023 08:32:21 09/30/19 24 80783 Therapeutic Exercise (1:1) completed Sharon Kidd, PT [address], [place], [address], [facility] 10/01/2023 08:32:29 09/30/19 24 55455: Neuromuscular Re-Education completed Sharon Kidd, PT [address], [place], [address], [facility] 10/01/2023 08:32:17 09/26/19 24 76084: Therapeutic Activities (1:1) completed Josie Santiago, RN [facility] [address], [place], [address], [facility] 09/26/2023 15:51:23 09/26/19 24 39316 Therapeutic Exercise (1:1) completed Josie Santiago, RN [facility] [address], [place], [address], [facility] 09/26/2023 15:51:19 09/26/19 24 29271: Neuromuscular Re-Education completed Josie Santiago, RN [facility] [address], [place], [address], [facility] 09/26/2023 15:53:02 09/23/19 64479 Therapeutic Exercise (1:1) completed Josie Santiago, RN [facility] [address], [place], [address], [facility] 09/23/2023 15:47:57 09/19/19 34489 Therapeutic Exercise (1:1) completed Josie Santiago, RN [facility] [address], [place], [address], [facility] 09/19/2023 15:46:31 09/16/19 60128 Therapeutic Exercise (1:1) completed Sharon Kidd, PT [address], [place], [address], [facility] 09/15/2023 23:33:49 09/11/19 84157 Therapeutic Exercise (1:1) completed Josie Santiago RN [facility] [address], [place], [address], [facility] 09/11/2023 16:35:46 09/09/19 62508 Therapeutic Exercise (1:1) cancelled Sharon Kidd, PT [address], [place], [address], [facility] 09/08/2023 23:14:47 09/02/19 41771 Therapeutic Exercise (1:1) completed Sharon Kidd, PT [address], [place], [address], [facility] 09/02/2023 06:54:54 08/28/19 10687 Therapeutic Exercise (1:1) completed Josie Santiago, RN [facility] [address], [place], [address], [facility] 08/28/2023 15:53:09 08/26/19 64297: Moderate complexity PT eval completed Sharon Kidd, PT [address], [place], [address], [facility] 08/27/2023 19:51:19 04/06/19 23 Cardiovascular Surgery completed Enrrique Metcalf PA-C [address], [place], [address], [facility] 07/06/2024 14:46:04 04/06/19 22 Stent completed Enrrique Metcalf PA-C [address], [place], [address], [facility] 07/06/2024 14:46:04 03/02/19 22 Shoulder Surgery completed Enrrique Metcalf PA-C [address], [place], [address], [facility] 07/06/2024 14:46:04 Ankle/Foot Surgery completed Genesis Metcalf PA-C [address], [place], [address], [facility] 07/06/2024 14:46:04 Imaging Results None recorded. Procedure Notes None recorded. Medical Equipment None Reported. Allergies Allergen ID Allergen Name Allergen Category Reaction Reaction Severity Criticality Documentation Date Start Date Code Code System Note Provider Name and Address Organization Details Recorded Time 933581 acetamino phen / oxycodone medicatio n Not available Not available Not available 10/21/2023 06829 3 RxNorm Enrrique Metcalf PA-C [address], [place], [address], [facility] 4 08:30:40 [id number] oxycodone medicatio n itching Not available Not available 12/29/2024 7804 RxNorm Not Available maite - External Data Service - prod 5 17:50:07 [id number] oxycodone hydrochlo ride medicatio n Not available Not available Not available 12/29/20242022 74561 RxNorm CARMELO KAMINSKI [facility] 5 11:11:18 544585 acetamino phen / oxycodone medicatio n hives Not available Not available 12/29/20242016 66468 3 RxNorm CARMELO xavier [place] - [place] [facility] 5 11:11:22 Medications Name Sig Start Date Stop [...] completed Not Available Not Available Not Available Nurtec ODT 12/23 completed Not Available Not Available [...] Updated DateTime 12/30/2024 195.58 cm 33.7 kg/m2 664455.23 g CARMELO KAMINSKI [facility] 12/30/2024 11:09:48 Social History Question Answer Notes LastModified by Organizat ion Details LastModified Time Tobacco Smoking Status Never Smoker Enrrique Metcalf PA-C [address] [facility] [address], [place], [address], [facility] 06/07/2024 09:32:54 What Is Your Relationship Status? Information not available 06/07/2024 Sex: Unknown Functional Status Question Answer Note LastModified by Organizat ion Details LastModified Time How many times per week do you consume alcohol? Less than 1 time per week Information not available 07/06/2024 Do you use any illicit or recreational drugs? No Information not available 06/07/2024 Do you or have you ever used any other forms of tobacco or nicotine? No Information not available 07/06/2024 What is your level of alcohol consumption? None Information not available 06/07/2024 Do you or have you ever used e-cigarettes or vape? Never used electronic cigarettes Information not available 07/06/2024 Mental Status None recorded. Family History Nothing Reported. Medical History Condition Response Allergies/Hayfever Y Coronary Artery Disease N Breathing or lung disorders N Anxiety/Depression Y Emphysema N Nerve Disorders N Thyroid Problems N COPD N Pacemaker N Kidney/Bladder Problems N Anemia N Vascular Disease Y Heart Trouble Y Gastrointestinal Disease N Heart Attack ([place]) Y Cholesterol Y Diabetes N Autoimmune disease N [...] ICD10 Code Diagnosis IMO Codes Diagnosis Note [id number] EVA Lentz [address] [place] [address] 12/09/2024 10:40:56 12/16/2024 14:08:02 Trochanteric bursitis of right hip [id number] 19588 M70.61 [id number] MD RAINER Silva Clinical [facility] [place] [address] 12/30/2024 10:46:39 12/30/2024 12:28:47 Pain of knee region 4815471251 M25.561 M25.562 G89.29 [id number] Primary go narthrosis, bilateral 155960686 M17.0 [id number] Health Concerns Section Related Observation LastModified by Organization Detai ls LastModified Time None Recorded Concern Status LastModified by Organization Details LastModified Time None Recorded Payers Encounter Date Sequence Insurance Name Policy Number Policy Pepe Covered Member ID Pepe Member ID Guarantor Name 12/30/2024 1 [facility] INDEMNITY PLAN (PPO) [id number] Terri Mittal [id number] Terri Mittal
--- OUTSIDE RECORDS SUMMARY | 2025-01-05 11:40 | XMS_ITS | Clinical Summary ---
Author Organization [facility] Address [address] [place] [address] Phone Care Team Providers Care Dirt Contractor Name Role Phone Terri Drake MD Primary Care Provider [phone] Allergies Active Allergy Reactions Criticality Noted Date [...] topic Medical Devices Not on file [place] [place] [address] [place], [place] [address]O [facility] [place] [address] [place] [address] [place] [address]O [facility] HMO Care Teams Dirt Contractor Relationship Specialty Start Date End Date Terri Drake MD [address] [place] [id number] PCP - General 11/28/16 Additional Source Comments The information contained in this document represents components of the legal health record. It is not the complete legal health record.[facility]
--- OUTSIDE RECORDS SUMMARY | 2025-01-05 11:40 | XMS_ITS | Continuity of Care Document ---
Author Organization [facility] Clinical Address [address] [place] [address] Care Team Providers Care Varnisher Plasticoater Name Role Phone TERRI CHAVEZ Primary Care Provider Assessment No assessment recorded. Plan of Treatment Reminders Order Date Submit Date Provider Last Modified By Organization Details Last Modified Time Details Appointments NORBERTO H&P 2025 09:30A M Koko Soto NP Not available Not available Not available SURGERY @ [facility] 2025 09:30A M Harvey Whitney MD Not available Not available Not available POST OP 15 2025 08:45A M Dea Corrales CNP Not available Not available Not available POST OP 15 2025 08:45A M Dea Corrales CNP Not available Not available Not available RECHECK 10 2025 09:40A M Harvey Whitney MD Not available Not available Not available Lab None recorded . Referral None recorded . Procedures None recorded . Surgeries None recorded . Imaging None recorded . Medication Orders None recorded . Patient TargetsNo targets recorded. Patient InstructionsNo instructions recorded. Reason for Referral None Reported. Results Created Date Observation Date Name Description Value Unit Range Abnormal Flag Note LastModifiedBy Organization Detail LastModifiedTime 12/31/1912/30/2024 XR, knee, 4 or more view http:/ [email or web address] ?Encry pted=s hAaTro YD8dLq bEUv6g %2BXZw aYqtaq 0bqfl% 2Fg9IQ a4ajBk vP9nXo QUaueC m3YtLR FvZlgJ JJ8mAn HZtai3 8a1973 AC0KlY 3uAU6W hKiQtr MwF INTERFACE [facility] [address], [place], [address], 12/30/2024 11:06:05 12/31/19 25 12/30/2024 XR, knee, 4 or more view http:/ [email or web address] ?Encry pted=s hAaTro YD8dLq bEUv6g %2BXZw aYqtaq 0bqfl% 2Fg9IQ a4ajBk vP9nXo QUaueC m3YtLR FvZlgJ JJ8mAn HZtai3 3h9029 AC0KlY 3uAU6W hKiQtr MwF INTERFACE [facility] [address], [place], [address], 12/30/2024 11:06:06 Result Notes None recorded. Problems Name Problem SNOMED Code Status Onset Date Resolution Date Notes Provider Name and Address Organization Details Recorded Time Idiopathi c osteoarth ritis 133505190 Active 2016 Problem Code: M17.0; Problem Code Type: ICD-10; Status: 'A'; Not Available [facility] 4 11:13:42 Sprain of shoulder 8597516 Active 2016 Problem Code: S43.82XA ; Problem Code Type: ICD-10; Status: 'A'; Not Available [facility] 4 11:13:42 Tear of medial meniscus of knee 996387457 Active 2016 Problem Code: S83.242A ; Problem Code Type: ICD-10; Status: 'A'; Not Available [facility] 4 11:13:42 Pain of left elbow joint 117246707661 26905 Active 2023 Enrrique Metcalf PA-C [address], [place], [address] , [facility] 4 08:31:05 Tear of distal tendon of biceps brachii 861344807 Active 2023 Enrrique Metcalf PA-C [address], [place], [address] , [facility] 4 08:44:12 Traumatic rupture of distal tendon of left biceps brachii 274753478390 81771 Active 2023 Enrrique Metcalf PA-C [address], [place], [address] , [facility] 4 06:48:06 Right lateral elbow tendinopa thy 426919421300 107 Active 2023 Enrrique Metcalf PA-C [address], [place], [address] , [facility] 4 14:00:50 Strain of hamstring tendon 581103041 Active [address], [place], [address] , [facility] 4 14:01:04 Rupture of tendon of biceps 951122834 Active 2023 Enrrique Metcalf PA-C [address], [place], [address] , [facility] 4 14:01:37 Osteoarth ritis of right knee joint 255646255037 100 Active 2024 Enrrique Metcalf PA-C [address], [place], [address] , [facility] 5 14:50:20 Pain of knee region 7462616987 Active 2024 CARMELO xavier, [facility] 5 10:58:20 Problem Notes None recorded. Procedures Surgical History Date Name Laterality Status Provider Name and Address Organization Details Recorded Time [facility]/10/[facility] Tomasz Kumar PA-C [address], [place], [address], [facility] 12/09/2024 11:20:52 10/20/19 25 Knee Kenalog 40 1cc Injection, Bilateral completed Enrrique Metcalf PA-C [address], [place], [address], [facility] 10/19/2024 08:36:07 07/15/19 97739 Therapeutic Exercise (1:1) completed Daylin Mascorro PTA [address], [place], [address], [facility] 07/14/2024 14:55:23 07/13/19 13360 Therapeutic Exercise (1:1) completed Daylin Mascorro PTA [address], [place], [address], [facility] 07/12/2024 14:43:43 07/07/19 25 Knee Kenalog 40 1cc Injection, Bilateral completed Enrrique Metcalf PA-C [address], [place], [address], [facility] 07/06/2024 14:50:36 07/01/19 06767 Therapeutic Exercise (1:1) completed EASTON HYATTT [address], [place], [address], [facility] 06/30/2024 15:43:42 06/29/19 08323 Therapeutic Exercise (1:1) completed EASTON HYATTT [address], [place], [address], [facility] 06/28/2024 15:32:27 06/24/19 83470 Therapeutic Exercise (1:1) completed Daylin Mascorro PTA [address], [place], [address], [facility] 06/23/2024 14:59:50 06/15/19 65854 Therapeutic Exercise (1:1) completed Daylin Mascorro ADVISER SALES [address], [place], [address], [facility] 06/14/2024 11:42:05 06/10/19 40109 Therapeutic Exercise (1:1) completed EASTON HYATTT [address], [place], [address], [facility] 06/09/2024 16:11:07 06/08/19 32430 Therapeutic Exercise (1:1) completed PHILLY BALL DPT [address], [place], [address], [facility] 06/08/2024 10:30:58 06/03/19 60510 Therapeutic Exercise (1:1) completed PHILLY BALL DPT [address], [place], [address], [facility] 06/02/2024 12:21:59 06/01/19 01378 Therapeutic Exercise (1:1) completed PHILLY BALL DPT [address], [place], [address], [facility] 05/31/2024 15:33:54 06/01/19 73770: Low complexity PT Eval completed EASTON HYATTT [address], [place], [address], [facility] 05/31/2024 15:33:59 05/29/19 Orthopedic Surgery completed Enrrique Metcalf PA-C [address], [place], [address], [facility] 07/06/2024 14:46:04 03/06/19 JZHip Inj completed Tomasz Kumar PA-C [address], [place], [address], [facility] 03/06/2024 08:30:40 01/13/20 24 23645 Therapeutic Exercise (1:1) completed PHILLY BALL DPT [address], [place], [address], [facility] 01/13/2024 13:38:03 11/27/20 24 49949 Therapeutic Exercise (1:1) completed Daylin Mascorro ADVISER SALES [address], [place], [address], [facility] 01/07/2024 11:20:54 01/05/20 26392 Therapeutic Exercise (1:1) completed Daylin Mascorro ADVISER SALES [address], [place], [address], [facility] 01/05/2024 14:21:17 01/01/20 10311 Therapeutic Exercise (1:1) completed Daylin Mascorro, ADVISER SALES [address], [place], [address], [facility] 01/01/2024 15:23:33 12/29/19 Knee Depo 1cc Injection, Bilateral completed Jeff Mixon MD [address], [place], [address], [facility] 12/29/2023 12:10:59 12/16/19 85020 Therapeutic Exercise (1:1) completed PHILLY BALL DPT [address], [place], [address], [facility] 12/16/2023 15:20:25 12/16/19 28435: Low complexity PT Eval completed PHILLY BALL DPT [address], [place], [address], [facility] 12/16/2023 15:20:27 12/09/19 84593 Therapeutic Exercise (1:1) completed Daylin Mascorro ADVISER SALES [address], [place], [address], [facility] 12/09/2023 16:16:22 12/08/19 12525 Therapeutic Exercise (1:1) completed PHILLY BALL, DPT [address], [place], [address], [facility] 12/08/2023 09:56:06 12/05/19 75362 Therapeutic Exercise (1:1) completed PHILLY BALL, DPT [address], [place], [address], [facility] 12/07/2023 20:54:18 12/05/19 62794: Manual therapy completed PHILLY BALL, DPT [address], [place], [address], [facility] 12/07/2023 20:54:27 12/02/19 50876 Therapeutic Exercise (1:1) completed PHILLY BALL, DPT [address], [place], [address], [facility] 12/02/2023 18:17:04 12/02/19 53800: Low complexity PT Eval completed PHILLY BALL, DPT [address], [place], [address], [facility] 12/02/2023 18:17:06 09/30/19 96276: Therapeutic Activities (1:1) completed Sharon Kidd, PT [address], [place], [address], [facility] 10/01/2023 08:32:21 09/30/19 31586 Therapeutic Exercise (1:1) completed Sharon Kidd, PT [address], [place], [address], [facility] 10/01/2023 08:32:29 09/30/19 89703: Neuromuscular Re-Education completed Sharon Kidd, PT [address], [place], [address], [facility] 10/01/2023 08:32:17 09/26/19 24 43916: Therapeutic Activities (1:1) completed Josie Santiago, ADVISER SALES [address], [place], [address], [facility] 09/26/2023 15:51:23 09/26/19 58037 Therapeutic Exercise (1:1) completed Josie Santiago, ADVISER SALES [address], [place], [address], [facility] 09/26/2023 15:51:19 09/26/19 51383: Neuromuscular Re-Education completed Josie Santiago, ADVISER SALES [address], [place], [address], [facility] 09/26/2023 15:53:02 09/23/19 84260 Therapeutic Exercise (1:1) completed Josie Santiago, ADVISER SALES [address], [place], [address], [facility] 09/23/2023 15:47:57 09/19/19 53221 Therapeutic Exercise (1:1) completed Josie Santiago, ADVISER SALES [address], [place], [address], [facility] 09/19/2023 15:46:31 09/16/19 39354 Therapeutic Exercise (1:1) completed Sharon Kidd, PT [address], [place], [address], [facility] 09/15/2023 23:33:49 09/11/19 15346 Therapeutic Exercise (1:1) completed Josie Santiago, ADVISER SALES [address], [place], [address], [facility] 09/11/2023 16:35:46 09/09/19 37624 Therapeutic Exercise (1:1) cancelled Sharon Kidd, PT [address], [place], [address], [facility] 09/08/2023 23:14:47 09/02/19 01911 Therapeutic Exercise (1:1) completed Sharon Kidd, PT [address], [place], [address], [facility] 09/02/2023 06:54:54 08/28/19 58706 Therapeutic Exercise (1:1) completed Josie Santiago, ADVISER SALES [address], [place], [address], [facility] 08/28/2023 15:53:09 08/26/19 24 16806: Moderate complexity PT eval completed Sharon Kidd, PT [address], [place], [address], [facility] 08/27/2023 19:51:19 04/06/19 23 Cardiovascular Surgery completed Enrrique Metcalf PA-C [address], [place], [address], [facility] 07/06/2024 14:46:04 04/06/19 22 Stent completed Enrrique Metcalf PA-C [address], [place], [address], [facility] 07/06/2024 14:46:04 03/02/19 22 Shoulder Surgery completed Enrrique Metcalf PA-C [address], [place], [address], [facility] 07/06/2024 14:46:04 Ankle/Foot Surgery completed Genesis Metcalf PA-C [address], [place], [address], [facility] 07/06/2024 14:46:04 Imaging Results None recorded. Procedure Notes None recorded. Medical Equipment None Reported. Allergies Allergen ID Allergen Name Allergen Category Reaction Reaction Severity Criticality Documentation Date Start Date Code Code System Note Provider Name and Address Organization Details Recorded Time 509869 acetamino phen / oxycodone medicatio n Not available Not available Not available 10/21/2023 96401 3 RxNorm Enrrique Metcalf PA-C [address], [place], [address], [facility] 4 08:30:40 845077 oxycodone medicatio n itching Not available Not available 12/29/2024 7804 RxNorm Not Available maite - External Data Service - prod 5 17:50:07 808507 oxycodone hydrochlo ride medicatio n Not available Not available Not available 12/29/20242022 88173 RxNorm CARMELO xavier [place] [facility] 5 11:11:18 726355 acetamino phen / oxycodone medicatio n hives Not available Not available 12/29/20242016 24715 3 RxNorm CARMELO xavier [place] [facility] 5 11:11:22 Medications Name Sig Start Date [...] completed Not Available Not Available Not Available [facility] ODT 12/23 completed Not Available Not Available [...] Updated DateTime 10/19/2024 195.58 cm 30.7 kg/m2 550239.42 g Enrrique Metcalf PA-C [address], [place], [address], [facility] 10/19/2024 13:59:08 Social History Question Answer Notes LastModified by [email or web address] Gini Details LastModified Time Tobacco Smoking Status Never Smoker Enrrique Metcalf PA-C [address], [place], [address], [facility] [place] [facility] 06/07/2024 09:32:54 What Is Your Relationship Status? Information not available 06/07/2024 Sex: Unknown Functional Status Question Answer Note LastModified by Organizat ion Details LastModified Time How many times per week do you consume alcohol? Less than 1 time per week [place] [address] Information not available 07/06/2024 Do you use any illicit or recreational drugs? No [place] [address] Information not available 06/07/2024 Do you or have you ever used any other forms of tobacco or nicotine? No [place] [address] Information not available 07/06/2024 What is your level of alcohol consumption? None [place] [address] Information not available 06/07/2024 Do you or have you ever used e-cigarettes or vape? Never used electronic cigarettes [place] [address] Information not available 07/06/2024 Mental Status None recorded. Family History Nothing Reported. Medical History Condition Response Allergies/Hayfever Y Coronary Artery Disease N Anxiety/Depression Y Breathing or lung disorders N Emphysema N Nerve Disorders N Thyroid Problems N COPD N Pacemaker N Anemia N Kidney/Bladder Problems N Vascular Disease Y Heart Trouble Y Heart Attack ([place]) Y Gastrointestinal Disease N Cholesterol Y Diabetes [...] ICD10 Code Diagnosis IMO Codes Diagnosis Note [id number] [place] [address] 10/19/2024 13:52:03 10/29/2024 06:22:48 Osteoarthritis of right knee joint 5563358713 66127 M17.11 5509912 Health Concerns Section Related Observation LastModified by Organization Detai ls LastModified Time None Recorded Concern Status LastModified by Organization Details LastModified Time None Recorded Payers Encounter Date Sequence Insurance Name Policy Number Policy Pepe Covered Member ID Pepe Member ID Guarantor Name 10/19/2024 1 [facility] INDEMNITY PLAN (PPO) [id number] Terri Mittal [id number] Terri Mittal Notes Date Note Type Note Provider Name and Address Organization Details Recorded Time 10/19/2024 text/html I am seeing the patient [...] of compliance regarding home exercises moving forward. [facility] speech recognition batch room technician software was used to create portions of this document. An attempt at proofreading has been made to minimize errors. Please call for corrections [address], [place], [address], [facility] [place] [facility] 10/19/2024 14:11:44
--- OUTSIDE RECORDS SUMMARY | 2025-01-05 11:40 | XMS_ITS | Continuity of Care Document ---
Author Organization [place] - [facility], [facility] 1st Floor Address [address] [place] [address] Care Team Providers Care Steam Frame Operator Name Role Phone TERRI CHAVEZ Primary Care Provider Assessment Encounter Date Assessment Date Assessment LastModified by Organization Details LastModified Time 12/09/2024 12/09/2024 I am seeing the patient [...] and its treatment options both conservative and surgical.Conserv ative measures were discussed at length including but not limited to physical therapy, bracing, anti-inflammator ies and injection therapies. Please see procedure note for more information about the injection performed today. The patient will follow up as needed. The patient understands and agrees with the plan. They know to call if they have any further questions or concerns regarding their symptoms, or to follow up sooner if needed. [email or web address] Not available 12/09/2024 06:12:50 Plan of Treatment Reminders Order Date Submit Date Provider Last Modified By Organization Details Last Modified Time Details Appointments [facility] H&P 2025 09:30A M Koko Soto NP Not available Not available Not available SURGERY @ [facility] 2025 09:30A M Harvey Whitney MD Not [...] knee, 4 or more view [email or web address]:/ [email or web address] ?Encry pted=s hAaTro YD8dLq bEUv6g %2BXZw aYqtaq 0bqfl% 2Fg9IQ a4ajBk vP9nXo QUaueC m3YtLR FvZlgJ JJ8mAn HZtai3 3u7420 AC0KlY 3uAU6W hKiQtr MwF INTERFACE [facility] [address] [facility] [facility] [address], [place], [address], 12/30/2024 11:06:05 12/31/19 25 12/30/2024 XR, knee, 4 or more view [email or web address] ?Encry pted=s hAaTro YD8dLq bEUv6g %2BXZw aYqtaq 0bqfl% 2Fg9IQ a4ajBk vP9nXo QUaueC m3YtLR FvZlgJ JJ8mAn HZtai3 1h8046 AC0KlY 3uAU6W hKiQtr MwF INTERFACE [facility] [address], [place], [address], 12/30/2024 11:06:06 Result Notes None recorded. Problems Name Problem SNOMED Code Status Onset Date Resolution Date Notes Provider Name and Address Organization Details Recorded Time Idiopathi c osteoarth ritis 334414355 Active 2016 Problem Code: M17.0; Problem Code Type: ICD-10; Status: 'A'; Not Available [facility] 4 11:13:42 Sprain of shoulder 8591459 Active 2016 Problem Code: S43.82XA ; Problem Code Type: ICD-10; Status: 'A'; Not Available [facility] 4 11:13:42 Tear of medial meniscus of knee 605540003 Active 2016 Problem Code: S83.242A ; Problem Code Type: ICD-10; Status: 'A'; Not Available [facility] 4 11:13:42 Pain of left elbow joint 615549444691 77387 Active 2023 Enrrique Metcalf PA-C [address], [place], [address] , [facility] 4 08:31:05 Tear of distal tendon of biceps brachii 975472195 Active 2023 Enrrique Metcalf PA-C [address], [place], [address] , [facility] - [facility] 4 08:44:12 Traumatic rupture of distal tendon of left biceps brachii 545023626183 Active 2023 Enrrique Metcalf PA-C [address], [place], [address] , [facility] - [facility] 4 06:48:06 Right lateral elbow tendinopa thy 229657193499 107 Active 2023 Enrrique Metcalf PA-C [address], [place], [address] , [facility] 4 14:00:50 Strain of hamstring tendon 365487035 Active 2023 Enrrique Metcalf PA-C [address], [place], [address] , [facility] 4 14:01:04 Rupture of tendon of biceps 757936009 Active 2023 Enrrique Metcalf PA-C [address], [place], [address] , [facility] 4 14:01:37 Osteoarth ritis of right knee joint 499768958926 100 Active 2024 Enrrique Metcalf PA-C [address], [place], [address] , [facility] 5 14:50:20 Pain of knee region 6032808306 Active 2024 CARMELO xavier, [facility] 5 10:58:20 Problem Notes None recorded. Procedures Surgical History Date Name Laterality Status Provider Name and Address Organization Details Recorded Time 12/10/19 25 [facility] completed Tomasz Kumar PA-C [address], [place], [address], [facility] 12/09/2024 11:20:52 10/20/19 Knee Kenalog 40 1cc Injection, Bilateral completed Enrrique Metcalf PA-C [address], [place], [address], [facility] 10/19/2024 08:36:07 07/15/19 25 45760 Therapeutic Exercise (1:1) completed Daylin Mascorro PTA [address], [place], [address], [facility] 07/14/2024 14:55:23 07/13/19 43159 Therapeutic Exercise (1:1) completed Daylin Mascorro PTA [address], [place], [address], [facility] 07/12/2024 14:43:43 07/07/19 Knee Kenalog 40 1cc Injection, Bilateral completed Enrrique Metcalf PA-C [address], [place], [address], [facility] 07/06/2024 14:50:36 07/01/19 37952 Therapeutic Exercise (1:1) completed PHLILY BALL DPT [address], [place], [address], [facility] 06/30/2024 15:43:42 06/29/19 21905 Therapeutic Exercise (1:1) completed PHILLY BALL DPT [address], [place], [address], [facility] 06/28/2024 15:32:27 06/24/19 23493 Therapeutic Exercise (1:1) completed Daylin Mascorro PTA [address], [place], [address], [facility] 06/23/2024 14:59:50 06/15/19 88060 Therapeutic Exercise (1:1) completed Daylin Mascorro PTA [address], [place], [address], [facility] 06/14/2024 11:42:05 06/10/19 98224 Therapeutic Exercise (1:1) completed PHILLY BALL DPT [address], [place], [address], [facility] 06/09/2024 16:11:07 06/08/19 36863 Therapeutic Exercise (1:1) completed PHILLY BALL DPT [address], [place], [address], [facility] 06/08/2024 10:30:58 06/03/19 03616 Therapeutic Exercise (1:1) completed PHILLY BALL DPT [address], [place], [address], [facility] 06/02/2024 12:21:59 06/01/19 77937 Therapeutic Exercise (1:1) completed EASTON HYATTT [address], [place], [address], [facility] 05/31/2024 15:33:54 06/01/19 18645: Low complexity PT Eval completed EASTON HYATTT [address], [place], [address], [facility] 05/31/2024 15:33:59 05/29/19 Orthopedic Surgery completed Enrrique Metcalf PA-C [address], [place], [address], [facility] 07/06/2024 14:46:04 03/06/19 JZHip Inj completed Tomasz Kumar PA-C [address], [place], [address], [facility] 03/06/2024 08:30:40 01/13/20 52834 Therapeutic Exercise (1:1) completed PHILLY BALL DPT [address], [place], [address], [facility] 01/13/2024 13:38:03 01/07/20 11103 Therapeutic Exercise (1:1) completed Daylin Mascorro PTA [address], [place], [address], [facility] 01/07/2024 11:20:54 01/05/20 43867 Therapeutic Exercise (1:1) completed Daylin Mascorro HOTEL SERVICES SALES REPRESENTATIVE [address], [place], [address], [facility] 01/05/2024 14:21:17 01/01/20 03673 Therapeutic Exercise (1:1) completed Daylin Mascorro, HOTEL SERVICES SALES REPRESENTATIVE [address], [place], [address], [facility] 01/01/2024 15:23:33 12/29/19 Knee Depo 1cc Injection, Bilateral completed Jeff Mixon MD [address], [place], [address], [facility] 12/29/2023 12:10:59 12/16/19 54866 Therapeutic Exercise (1:1) completed PHILLY BALL, DPT [address], [place], [address], [facility] 12/16/2023 15:20:25 12/16/19 11574: Low complexity PT Eval completed PHILLY BALL, DPT [address], [place], [address], [facility] 12/16/2023 15:20:27 12/09/19 61866 Therapeutic Exercise (1:1) completed Daylin Mascorro, HOTEL SERVICES SALES REPRESENTATIVE [address], [place], [address], [facility] 12/09/2023 16:16:22 12/08/19 69076 Therapeutic Exercise (1:1) completed PHILLY BALL, DPT [address], [place], [address], [facility] 12/08/2023 09:56:06 12/05/19 98231 Therapeutic Exercise (1:1) completed PHILLY BALL, DPT [address], [place], [address], [facility] 12/07/2023 20:54:18 12/05/19 02483: Manual therapy completed PHILLY BALL, DPT [address], [place], [address], [facility] 12/07/2023 20:54:27 12/02/19 90153 Therapeutic Exercise (1:1) completed PHILLY BALL, DPT [address], [place], [address], [facility] 12/02/2023 18:17:04 12/02/19 24 85354: Low complexity PT Eval completed PHILLY BALL, DPT [address], [place], [address], [facility] 12/02/2023 18:17:06 09/30/19 24 90510: Therapeutic Activities (1:1) completed Sharon Kidd, PT [address], [place], [address], [facility] 10/01/2023 08:32:21 09/30/19 24 85387 Therapeutic Exercise (1:1) completed Sharon Kidd, PT [address], [place], [address], [facility] 10/01/2023 08:32:29 09/30/19 24 61349: Neuromuscular Re-Education completed Sharon Kidd, PT [address], [place], [address], [facility] 10/01/2023 08:32:17 09/26/19 24 65975: Therapeutic Activities (1:1) completed Josie Santiago, HOTEL SERVICES SALES REPRESENTATIVE [address], [place], [address], [facility] 09/26/2023 15:51:23 09/26/19 24 03472 Therapeutic Exercise (1:1) completed Jsoie Santiago, HOTEL SERVICES SALES REPRESENTATIVE [address], [place], [address], [facility] 09/26/2023 15:51:19 09/26/19 24 52331: Neuromuscular Re-Education completed Josie Santiago, HOTEL SERVICES SALES REPRESENTATIVE [address], [place], [address], [facility] 09/26/2023 15:53:02 09/23/19 24 57857 Therapeutic Exercise (1:1) completed Josie Santiago, HOTEL SERVICES SALES REPRESENTATIVE [address], [place], [address], [facility] 09/23/2023 15:47:57 09/19/19 18769 Therapeutic Exercise (1:1) completed Josie Santiago, HOTEL SERVICES SALES REPRESENTATIVE [address], [place], [address], [facility] 09/19/2023 15:46:31 09/16/19 93349 Therapeutic Exercise (1:1) completed Sharon Kidd, PT [address], [place], [address], [facility] 09/15/2023 23:33:49 09/11/19 25294 Therapeutic Exercise (1:1) completed Josie Santiago HOTEL SERVICES SALES REPRESENTATIVE [address], [place], [address], [facility] 09/11/2023 16:35:46 09/09/19 22127 Therapeutic Exercise (1:1) cancelled Sharon Kidd, PT [address], [place], [address], [facility] 09/08/2023 23:14:47 09/02/19 73877 Therapeutic Exercise (1:1) completed Sharon Kidd, PT [address], [place], [address], [facility] 09/02/2023 06:54:54 08/28/19 20944 Therapeutic Exercise (1:1) completed Josie Santiago, HOTEL SERVICES SALES REPRESENTATIVE [address], [place], [address], [facility] 08/28/2023 15:53:09 08/26/19 58041: Moderate complexity PT eval completed Sharon Kidd, PT [address], [place], [address], [facility] 08/27/2023 19:51:19 04/06/19 Cardiovascular Surgery completed Enrrique Metcalf PA-C [address], [place], [address], [facility] 07/06/2024 14:46:04 04/06/19 22 Stent completed Enrrique Metcalf PA-C [address] [facility], [place], [address], [facility] 07/06/2024 14:46:04 03/02/19 22 Shoulder Surgery completed Enrrique Metcalf PA-C [address], [place], [address], [facility] 07/06/2024 14:46:04 Ankle/Foot Surgery completed Genesis Metcalf PA-C [address] [facility], [place], [address], [facility] 07/06/2024 14:46:04 Imaging Results None recorded. Procedure Notes None recorded. Medical Equipment None Reported. Allergies Allergen ID Allergen Name Allergen Category Reaction Reaction Severity Criticality Documentation Date Start Date Code Code System Note Provider Name and Address Organization Details Recorded Time 809447 acetamino phen / oxycodone medicatio n Not available Not available Not available 10/21/2023 55715 3 RxNorm Enrrique Metcalf PA-C [address], [place], [address], [facility] 4 08:30:40 376576 oxycodone medicatio n itching Not available Not available 12/29/2024 7804 RxNorm Not Available maite - External Data Service - prod 5 17:50:07 843942 oxycodone hydrochlo ride medicatio n Not available Not available Not available 12/29/20242022 48519 RxNorm CARMELO xavier [facility] 5 11:11:18 254319 acetamino phen / oxycodone medicatio n hives Not available Not available 12/29/20242016 07077 3 RxNorm CARMELO xavier [facility] 5 11:11:22 Medications Name Sig Start [...] completed Not Available Not Available Not Available [facility] ODT 12/23 completed Not Available Not Available [...] Updated DateTime 12/09/2024 195.58 cm 30.7 kg/m2 331678.42 g Ana Natarajan [facility] 12/09/2024 10:54:57 Social History Question Answer Notes LastModified by Yunait Details LastModified Time Tobacco Smoking Status Never Smoker Enrrique Metcalf PA-C [address] [facility] [address], [place], [address], [facility] 06/07/2024 09:32:54 What Is Your Relationship Status? [email or web address] Information not available 06/07/2024 Sex: Unknown Functional Status Question Answer Note LastModified by Yunait Details LastModified Time How many times per [...] Disease Y Heart Trouble Y Heart Attack ([place]) Y Gastrointestinal Disease N Cholesterol Y Diabetes [...] ICD10 Code Diagnosis IMO Codes Diagnosis Note [id number] EVA Lentz 1st [address] [facility] [place] [address] 12/09/2024 10:40:56 12/16/2024 14:08:02 Trochanteric bursitis of right hip 1285647695 54307 M70.61 [id number] Health Concerns Section Related Observation LastModified by Organization Detai ls LastModified Time None Recorded Concern Status LastModified by Organization Details LastModified Time None Recorded Payers Encounter Date Sequence Insurance Name Policy Number Policy Pepe Covered Member ID Pepe Member ID Guarantor Name 12/09/2024 1 [facility] [employer] (PPO) [id number] Terri Mittal [id number] Terri Mittal
== END 2025-01-05 10:02 | disposition home or self-care (01) ==
LOC: HO.HMGAL 10:02
PROVIDERS: PCP Internal Medicine; Visit Provider Registered Nurse Emergency
DX: J30.89 Other allergic rhinitis (principal)
CPT/HCPCS: 95117; 95165

== ENCOUNTER 2025-01-31 14:29 | Outpatient (AMB) | payer OTHER, SELFPAY ==
--- OUTSIDE RECORDS SUMMARY | 2025-01-31 17:53 | XMS_ITS | Encounter Summary ---
Author Organization [facility] Address [address] [place] [address] [place] [address] Phone Care Team Providers Care Rn Informatics Name Role Phone Levar Drake MD Primary Care Provider [phone] Encounter Details Date Type Department Care Team (Late st Contact Info) Description 03/02/2018 Procedure Pass [address] [place] [address] Social History Tobacco Use Types Packs/Day Years [...] on filedocumented in this encounter Care Teams Rn Informatics Relationship Specialty Start Date End Date Levar Drake MD [address] [facility] [address] [place] [address] PCP - General 11/28/16 documented as of this encounter Additional Source Comments The information contained in this document represents components of the legal health record. It is not the complete legal health record.[facility]
--- OUTSIDE RECORDS SUMMARY | 2025-01-31 17:53 | XMS_ITS | Continuity of Care Document ---
Author Organization [facility] Surgeons [facility], [facility] Clinical Address [address] [place] [address] Care Team Providers Care Trimming Machine Set Up Operator Name Role Phone TERRI CHAVEZ Primary [...] and lucid. Normal insight, affect and grooming. MEDICAL MASSAGE THERAPIST: Gross motor coordination is intact. No spasticity [...] questions or concerns that they might have. Not available 12/30/2024 12:28:17 Plan of Treatment Reminders Order Date Submit Date Provider Last Modified By Organization Details Last Modified Time Details Appointments NORBERTO Santana&Robert 2025 09:30A M Koko Soto NP Not available Not available Not available SURGERY @ [facility] 2025 10:30A M Harvey Whitney MD Not available Not [...] - 4 b knee 4v 2024 025 [facility], [address] [facility], [facility] [address], [place], [address], 12/30/2024 13:01:54 Medication Orders None recorded . Patient TargetsNo targets recorded. Patient InstructionsNo instructions recorded. Reason for Referral None Reported. Results Created Date Observation Date Name Description Value Unit Range Abnormal Flag Note LastModifiedBy Organization Detail LastModifiedTime 12/31/1912/30/2024 CBC WITH DIFFE RENTI AL/PL ATELE T WBC 9.5 x10e3 /uL 3.4-10 .8 normal Not Available [facility] ([facility]) [address] [facility], [place], [address], 12/31/2024 06:05:31 12/31/19 25 12/30/2024 CBC WITH DIFFE RENTI AL/PL ATELE T RBC 4.90 x10e6 /uL 4.14-5 .80 normal Not Available [facility] ([facility]) [address] [place], [address], 12/31/2024 06:05:31 12/31/19 25 12/30/2024 CBC WITH DIFFE RENTI AL/PL ATELE T hemoglobin 15.2 g/dL 13.0-1 7.7 normal Not Available [facility] ([facility]) [address] [place], [address], 12/31/2024 06:05:31 12/31/19 25 12/30/2024 CBC WITH DIFFE RENTI AL/PL ATELE T hematocrit 44.5 % 37.5-5 1.0 normal Not Available [facility] ([facility]) [address] [place], [address], 12/31/2024 06:05:31 12/31/19 25 12/30/2024 CBC WITH DIFFE RENTI AL/PL ATELE T MCV 91 fL 79-97 normal Not Available [facility] ([facility]) [address] [place], [address], 12/31/2024 06:05:31 12/31/19 25 12/30/2024 CBC WITH DIFFE RENTI AL/PL ATELE T MCH 31.0 pg 26.6-3 3.0 normal Not Available [facility] ([facility]) [address] [place], [address], 12/31/2024 06:05:31 12/31/19 25 12/30/2024 CBC WITH DIFFE RENTI AL/PL ATELE T MCHC 34.2 g/dL 31.5-3 5.7 normal Not Available [facility] ([facility]) [address] [place] [address], [address], 12/31/2024 06:05:31 12/31/19 25 12/30/2024 CBC WITH DIFFE RENTI AL/PL ATELE T RDW 13.2 % 11.6-1 5.4 Not Available [facility] ([facility]) [address] [facility], [place], [address], 12/31/2024 06:05:31 12/31/19 25 12/30/2024 CBC WITH DIFFE RENTI AL/PL ATELE T platelets 204 x10e3 /uL 150-45 0 normal Not Available [facility] ([facility]) [address] [facility], [place], [address], 12/31/2024 06:05:31 12/31/19 25 12/30/2024 CBC WITH DIFFE RENTI AL/PL ATELE T neutrophils 43 % not estab. normal Not Available [facility] ([facility]) [address] [facility], [place], [address], 12/31/2024 06:05:31 12/31/19 25 12/30/2024 CBC WITH DIFFE RENTI AL/PL ATELE T lymphs 42 % not estab. normal Not Available [facility] ([facility]) [address] [facility], [place], [address], 12/31/2024 06:05:31 12/31/19 25 12/30/2024 CBC WITH DIFFE RENTI AL/PL ATELE T monocytes 10 % not estab. normal Not Available [facility] ([facility]) [address] [facility], [place], [address], 12/31/2024 06:05:31 12/31/19 25 12/30/2024 CBC WITH DIFFE RENTI AL/PL ATELE T eos 3 % not estab. normal Not Available [facility] ([facility]) [address] [facility], [place], [address], 12/31/2024 06:05:31 12/31/19 25 12/30/2024 CBC WITH DIFFE RENTI AL/PL ATELE T basos 1 % not estab. normal Not Available [facility] ([facility]) [address] [facility], [place], [address], 12/31/2024 06:05:31 12/31/19 25 12/30/2024 CBC WITH DIFFE RENTI AL/PL ATELE T immature cells RETAIL SUPPORT MANAGER Not Available [facility] ([facility]) [address] [place], [address], 12/31/2024 06:05:31 12/31/19 25 12/30/2024 CBC WITH DIFFE RENTI AL/PL ATELE T neutrophils (absolute) 4.2 x10e3 /uL 1.4-7. 0 normal Not Available [facility] ([facility]) [address] [place], [address], 12/31/2024 06:05:31 12/31/19 25 12/30/2024 CBC WITH DIFFE RENTI AL/PL ATELE T lymphs (absolute) 3.9 x10e3 /uL 0.7-3. 1 above high normal Not Available [facility] ([facility]) [address] [place], [address], 12/31/2024 06:05:31 12/31/19 25 12/30/2024 CBC WITH DIFFE RENTI AL/PL ATELE T monocytes(ab solute) 1.0 x10e3 /uL 0.1-0. 9 above high normal Not Available [facility] ([facility]) [address] [place], [address], 12/31/2024 06:05:31 12/31/19 25 12/30/2024 CBC WITH DIFFE RENTI AL/PL ATELE T eos (absolute) 0.3 x10e3 /uL 0.0-0. 4 normal Not Available [facility] ([facility]) [address] [place], [address], 12/31/2024 06:05:31 12/31/19 25 12/30/2024 CBC WITH DIFFE RENTI AL/PL ATELE T baso (absolute) 0.1 x10e3 /uL 0.0-0. 2 normal Not Available [facility] ([facility]) [address] [facility], [place], [address], 12/31/2024 06:05:31 12/31/19 25 12/30/2024 CBC WITH DIFFE RENTI AL/PL ATELE T immature granulocytes 1 % not estab. Not Available [facility] ([facility]) [address] [facility], [place], [address], 12/31/2024 06:05:31 12/31/19 25 12/30/2024 CBC WITH DIFFE RENTI AL/PL ATELE T immature grans (abs) 0.1 x10e3 /uL 0.0-0. 1 Not Available [facility] ([facility]) [address] [facility], [place], [address], 12/31/2024 06:05:31 12/31/19 25 12/30/2024 CBC WITH DIFFE RENTI AL/PL ATELE T NRBC RETAIL SUPPORT MANAGER Not Available [facility] ([facility]) [address] [facility], [place], [address], 12/31/2024 06:05:31 12/31/19 25 12/30/2024 CBC WITH DIFFE RENTI AL/PL ATELE T hematology comments: RETAIL SUPPORT MANAGER Not Available [facility] ([facility]) [address] [facility], [place], [address], 12/31/2024 06:05:31 12/31/19 25 12/30/2024 ELECT ROLYT E PANEL sodium 141 mmol/ L 134-14 4 normal Not Available [facility] ([facility]) [address] [place], [address], 12/31/2024 06:05:32 12/31/19 25 12/30/2024 ELECT ROLYT E PANEL potassium 4.7 mmol/ L 3.5-5. 2 normal Not Available [facility] ([facility]) [address] [place], [address], 12/31/2024 06:05:32 12/31/19 25 12/30/2024 ELECT ROLYT E PANEL chloride 102 mmol/ L 96-106 normal Not Available [facility] ([facility]) [address] [facility], [place], [address], 12/31/2024 06:05:32 12/31/19 25 12/30/2024 ELECT ROLYT E PANEL carbon dioxide, total 30 mmol/ L 20-29 above high normal Not Available [facility] ([facility]) [address] [place], [address], 12/31/2024 06:05:32 12/31/19 25 12/30/2024 BUN+C REAT BUN 14 mg/dL 8-27 normal Not Available [facility] ([facility]) [address] [place], [address], 12/31/2024 06:05:32 12/31/19 25 12/30/2024 BUN+C REAT creatinine 0.94 mg/dL 0.76-1 .27 normal Not Available [facility] ([facility]) [address] [place], [address], 12/31/2024 06:05:32 12/31/19 25 12/30/2024 BUN+C REAT eGFR 92 mL/mi n/1.7 3 >59 normal Not Available [facility] ([facility]) [address] [place], [address], 12/31/2024 06:05:32 12/31/19 25 12/30/2024 BUN+C REAT BUN/creatini ne ratio 15 10-24 normal Not Available [facility] ([facility]) [address] [place], [address], 12/31/2024 06:05:32 12/31/19 25 12/31/2024 PROTH ROMBI [...] range 2.5 - 3.5 Not Available [facility] ([facility]) [address] [place], [address], 12/31/2024 06:05:32 12/31/1912/31/2024 PROTH ROMBI N TIME (PT) prothrombin time 9.5 sec 9.1-12 .0 normal Not Available [facility] ([facility]) [address] [place], [address], 12/31/2024 06:05:32 12/31/1912/31/2024 HEMOG LOBIN A1C hemoglobin A1C 5.9 % 4.8-5. 6 above high normal Predi abete s: 5.7 - 6.4 Diabe juvenal: >6.4 Glyce lucina contr ol for adult s with diabe juvenal: <7.0 Not Available [facility] ([facility]) [address] [place], [address], 12/31/2024 06:05:33 12/31/1912/31/2024 PTT, ACTIV ATED APTT [...] meg of Derrick coombs. Not Available [facility] ([facility]) [address] [place], [address], 12/31/2024 06:05:33 12/31/19 25 12/30/2024 GLUCO SE glucose 93 mg/dL 70-99 normal Not Available [facility] ([facility]) [address] [facility], [place], [address], 12/31/2024 06:05:33 12/31/19 25 12/30/2024 XR, knee, 4 or more view http:/ [email or web address] ?Encry pted=s hAaTro YD8dLq bEUv6g %2BXZw aYqtaq 0bqfl% 2Fg9IQ a4ajBk vP9nXo QUaueC m3YtLR FvZlgJ JJ8mAn HZtai3 7n2899 AC0KlY 3uAU6W hKiQtr MwF INTERFACE [facility] Office [address] [facility] [address], [place], [address], 12/30/2024 11:06:05 12/31/19 25 12/30/2024 XR, knee, 4 or more view [email or web address] ?Encry pted=s hAaTro YD8dLq bEUv6g %2BXZw aYqtaq 0bqfl% 2Fg9IQ a4ajBk vP9nXo QUaueC m3YtLR FvZlgJ JJ8mAn HZtai3 9e8742 AC0KlY 3uAU6W hKiQtr MwF INTERFACE [facility] Office [address] [facility] [address], [place], [address], 12/30/2024 11:06:06 Result Notes Documentation Provider Name and Address Organization Details Recorded Time Xr, Knee, 4 Or More View : [email or web address] Encrypted=jjKtKoqIK3lOpjX Uv6g%1HMDyxOpiua7gixd%2Fg 2GQt2qoAauT6eTsJQzgoQk9Sc RJAgRvaNQU1kInORjoq52z633 0ZQ5PqG7fCE6XvNkWguNyE Not Available [employer] 12/30/2024 11:06: 05 Xr, Knee, 4 Or More View : [email or web address] Encrypted=ctXaEbuFO4oAgyT Uv6g%5BPDpuKncdl5yijl%2Fg 5LKl3erPhpW3oGxEHzbaXa2Qx RALtEssZCH1mPrGOclf52o421 3IE9ZyN1rOX9CjZpDkjWsI Not Available [facility] 12/30/2024 11:06: 07 Problems Name Problem SNOMED Code Status Onset Date Resolution Date Notes Provider Name and Address Organization Details Recorded Time Idiopathi c osteoarth ritis 288602317 Active 2016 Problem Code: M17.0; Problem Code Type: ICD-10; Status: 'A'; Not Available [facility] 4 11:13:42 Sprain of shoulder 5069050 Active 2016 Problem Code: S43.82XA ; Problem Code Type: ICD-10; Status: 'A'; Not Available [facility] 4 11:13:42 Tear of medial meniscus of knee 588386867 Active 2016 Problem Code: S83.242A ; Problem Code Type: ICD-10; Status: 'A'; Not Available [facility] 4 11:13:42 Pain of left elbow joint 336568551210 30515 Active 2023 Enrrique Metcalf PA-C [address], [place], [address] , [facility] 4 08:31:05 Tear of distal tendon of biceps brachii 225202648 Active 2023 Enrrique Metcalf PA-C [address], [place], [address] , [facility] 4 08:44:12 Traumatic rupture of distal tendon of left biceps brachii 513168538451 Active 2023 Enrrique Metcalf PA-C [address], [place], [address] , [facility] 4 06:48:06 Right lateral elbow tendinopa thy 846877963959 107 Active 2023 Enrrique Metcalf PA-C [address], [place], [address] , [facility] 4 14:00:50 Strain of hamstring tendon 113111677 Active 2023 Enrrique Metcalf PA-C [address], [place], [address] , [facility] 4 14:01:04 Rupture of tendon of biceps 587617012 Active 2023 Enrrique Metcalf PA-C [address], [place], [address] , [facility] 4 14:01:37 Osteoarth ritis of right knee joint 470791800100 100 Active 2024 Enrrique Metcalf PA-C [address], [place], [address] , [facility] 5 14:50:20 Pain of knee region 3269467787 [facility] 5 10:58:20 Problem Notes None recorded. Procedures Surgical History Date Name Laterality Status Provider Name and Address Organization Details Recorded Time 12/10/19 25 JZHip completed Tomasz Kumar PA-C [address], [place], [address], [facility] 12/09/2024 11:20:52 10/20/19 Knee Kenalog 40 1cc Injection, Bilateral completed Enrrique Metcalf PA-C [address], [place], [address], [facility] 10/19/2024 08:36:07 07/15/19 25 02143 Therapeutic Exercise (1:1) completed Daylin Mascorro PTA [address], [place], [address], [facility] 07/14/2024 14:55:23 07/13/19 25 98057 Therapeutic Exercise (1:1) completed Daylin Mascorro PTA [address], [place], [address], [facility] 07/12/2024 14:43:43 07/07/19 25 Knee Kenalog 40 1cc Injection, Bilateral completed Enrrique Metcalf PA-C [address], [place], [address], [facility] 07/06/2024 14:50:36 07/01/19 13467 Therapeutic Exercise (1:1) completed PHILLY BALL DPT [address], [place], [address], [facility] 06/30/2024 15:43:42 06/29/19 57212 Therapeutic Exercise (1:1) completed PHILLY BALL DPT [address], [place], [address], [facility] 06/28/2024 15:32:27 06/24/19 25 77419 Therapeutic Exercise (1:1) completed Daylin Mascorro PTA [address], [place], [address], [facility] 06/23/2024 14:59:50 06/15/19 55040 Therapeutic Exercise (1:1) completed Daylin Mascorro PTA [address], [place], [address], [facility] 06/14/2024 11:42:05 06/10/19 25 54927 Therapeutic Exercise (1:1) completed PHILLY BALL DPT [address], [place], [address], [facility] 06/09/2024 16:11:07 06/08/19 25 25492 Therapeutic Exercise (1:1) completed PHILLY BALL DPT [address], [place], [address], [facility] 06/08/2024 10:30:58 06/03/19 22259 Therapeutic Exercise (1:1) completed PHILLY BALL DPT [address], [place], [address], [facility] 06/02/2024 12:21:59 06/01/19 25 85247 Therapeutic Exercise (1:1) completed PHILLY BALL DPT [address], [place], [address], [facility] 05/31/2024 15:33:54 06/01/19 34509: Low complexity PT Eval completed PHILLY BALL DPT [address], [place], [address], [facility] 05/31/2024 15:33:59 05/29/19 25 Orthopedic Surgery completed Enrrique Metcalf PA-C [address], [place], [address], [facility] 07/06/2024 14:46:04 03/06/19 25 JZHip Inj completed Tomasz Kumar PA-C [address], [place], [address], [facility] 03/06/2024 08:30:40 01/13/20 95406 Therapeutic Exercise (1:1) completed PHILLY BALL DPT [address], [place], [address], [facility] 01/13/2024 13:38:03 01/07/20 44969 Therapeutic Exercise (1:1) completed Daylin Mascorro PTA [address], [place], [address], [facility] 01/07/2024 11:20:54 01/05/20 74666 Therapeutic Exercise (1:1) completed Daylin Mascorro PTA [address], [place], [address], [facility] 01/05/2024 14:21:17 01/01/20 67383 Therapeutic Exercise (1:1) completed Daylin Mascorro NURSES EDUCATOR [address], [place], [address], [facility] 01/01/2024 15:23:33 12/29/19 Knee Depo 1cc Injection, Bilateral completed Jeff Mixon MD [address], [place], [address], [facility] 12/29/2023 12:10:59 12/16/19 88338 Therapeutic Exercise (1:1) completed PHILLY BALL DPT [address] [facility], [place], [address], [facility] 12/16/2023 15:20:25 12/16/19 82788: Low complexity PT Eval completed PHILLY BALL DPT [address], [place], [address], [facility] 12/16/2023 15:20:27 12/09/19 05871 Therapeutic Exercise (1:1) completed Daylin Mascorro NURSES EDUCATOR [address], [place], [address], [facility] 12/09/2023 16:16:22 12/08/19 66938 Therapeutic Exercise (1:1) completed PHILLY BALL DPT [address], [place], [address], [facility] 12/08/2023 09:56:06 12/05/19 93499 Therapeutic Exercise (1:1) completed PHILLY BALL DPT [address], [place], [address], [facility] 12/07/2023 20:54:18 12/05/19 00430: Manual therapy completed PHILLY BALL DPT [address], [place], [address], [facility] 12/07/2023 20:54:27 12/02/19 24 32058 Therapeutic Exercise (1:1) completed PHILLY BALL DPT [address], [place], [address], [facility] 12/02/2023 18:17:04 12/02/19 24 18910: Low complexity PT Eval completed PHILLY BALL DPT [address], [place], [address], [facility] 12/02/2023 18:17:06 09/30/19 24 53341: Therapeutic Activities (1:1) completed Sharon Kidd, PT [address], [place], [address], [facility] 10/01/2023 08:32:21 09/30/19 24 45489 Therapeutic Exercise (1:1) completed Sharon Kidd, PT [address], [place], [address], [facility] 10/01/2023 08:32:29 09/30/19 24 12850: Neuromuscular Re-Education completed Sharon Kidd, PT [address], [place], [address], [facility] 10/01/2023 08:32:17 09/26/19 24 23274: Therapeutic Activities (1:1) completed Josie Santiago, NURSES EDUCATOR [address], [place], [address], [facility] 09/26/2023 15:51:23 09/26/19 24 85338 Therapeutic Exercise (1:1) completed Josie Santiago, NURSES EDUCATOR [address], [place], [address], [facility] 09/26/2023 15:51:19 09/26/19 24 40671: Neuromuscular Re-Education completed Josie Santiago, NURSES EDUCATOR [address], [place], [address], [facility] 09/26/2023 15:53:02 09/23/19 43468 Therapeutic Exercise (1:1) completed Josie Santiago, NURSES EDUCATOR [address], [place], [address], [facility] 09/23/2023 15:47:57 09/19/19 26418 Therapeutic Exercise (1:1) completed Josie Santiago, NURSES EDUCATOR [address], [place], [address], [facility] 09/19/2023 15:46:31 09/16/19 57843 Therapeutic Exercise (1:1) completed Sharon Kidd, PT [address], [place], [address], [facility] 09/15/2023 23:33:49 09/11/19 41966 Therapeutic Exercise (1:1) completed Josie Santiago NURSES EDUCATOR [address], [place], [address], [facility] 09/11/2023 16:35:46 09/09/19 85446 Therapeutic Exercise (1:1) cancelled Sharon Kidd, PT [address], [place], [address], [facility] 09/08/2023 23:14:47 09/02/19 55483 Therapeutic Exercise (1:1) completed Sharon Kidd, PT [address], [place], [address], [facility] 09/02/2023 06:54:54 08/28/19 87129 Therapeutic Exercise (1:1) completed Josie Santiago, NURSES EDUCATOR [address], [place], [address], [facility] 08/28/2023 15:53:09 08/26/19 68689: Moderate complexity PT eval completed Sharon Kidd, PT [address], [place], [address], [facility] 08/27/2023 19:51:19 04/06/19 23 Cardiovascular Surgery completed Enrrique Metcalf PA-C [address], [place], [address], [facility] 07/06/2024 14:46:04 04/06/19 22 Stent completed Enrrique Metcalf PA-C [address], [place], [address], [facility] 07/06/2024 14:46:04 03/02/19 22 Shoulder Surgery completed Enrrique Metcalf PA-C [address], [place], [address], [facility] 07/06/2024 14:46:04 Ankle/Foot Surgery completed Genesis Metcalf PA-C [address], [place], [address], [facility] 07/06/2024 14:46:04 Imaging Results None recorded. Procedure Notes None recorded. Medical Equipment None Reported. Allergies Allergen ID Allergen Name Allergen Category Reaction Reaction Severity Criticality Documentation Date Start Date Code Code System Note Provider Name and Address Organization Details Recorded Time 915986 acetamino phen / oxycodone medicatio n Not available Not available Not available 10/21/2023 54851 3 RxNorm Enrrique Metcalf PA-C [address], [place], [address], [facility] 4 08:30:40 779362 oxycodone medicatio n itching Not available Not available 12/29/2024 7804 RxNorm Not Available maite - External Data Service - prod 5 17:50:07 990475 oxycodone hydrochlo ride medicatio n Not available Not available Not available 12/29/20242022 23348 RxNorm CARMELO KAMINSKI [facility] [place] [facility] 11:11:18 [id number] acetamino phen / oxycodone medicatio n hives Not available Not available 12/29/20242016 [id number] RxNorm CARMELO xavier [place] - [facility] 5 11:11:22 Medications Name [...] Updated DateTime 12/30/2024 195.58 cm 33.7 kg/m2 927314.23 g CARMELO KAMINSKI [facility] 12/30/2024 11:09:48 Social History Question Answer Notes LastModified by Organizat ion Details LastModified Time Tobacco Smoking Status Never Smoker Enrrique Metcalf PA-C [address] [facility] [address], [place], [address], [facility] 06/07/2024 09:32:54 What Is [...] Disease Y Heart Trouble Y Heart Attack ([place]) Y Gastrointestinal Disease N Cholesterol Y Diabetes [...] ICD10 Code Diagnosis IMO Codes Diagnosis Note [id number] EVA Lentz [address] [place] [address] 12/09/2024 10:40:56 12/16/2024 14:08:02 Trochanteric bursitis of right hip 3479218875 91982 M70.61 [id number] MD RAINER Silva Clinical [facility] [place] [address] 12/30/2024 10:46:39 01/12/2025 14:26:23 Pain of knee region [id number] M25.561 M25.562 G89.29 [id number] Primary go narthrosis, bilateral [id number] M17.0 [id number] Health Concerns Section Related Observation LastModified by Organization Detai ls LastModified Time None Recorded Concern Status LastModified by Organization Details LastModified Time None Recorded Payers Encounter Date Sequence Insurance Name Policy Number Policy Pepe Covered Member ID Pepe Member ID Guarantor Name 12/30/2024 1 [facility] [employer] (PPO) [id number] Terri Mittal [id number] Terri Mittal
--- OUTSIDE RECORDS SUMMARY | 2025-01-31 17:53 | XMS_ITS | Clinical Summary ---
Author Organization [facility] Address [address] [facility] [address] [facility] [address] [place] [phone] Phone Care Team Providers Care Wool Handler Name Role Phone Terri Drake MD Primary Care Provider [phone] Allergies Active Allergy Reactions Criticality Noted Date [...] topic Medical Devices Not on file [place] [place] [address] [place] [id number] [facility] [address] [place] [address] [place] [address]O [facility] HMO Care Teams Wool Handler Relationship Specialty Start Date End Date Terri Drake MD [address] [place] [id number] PCP - General 11/28/16 Additional Source Comments The information contained in this document represents components of the legal health record. It is not the complete legal health record.[facility]
--- OUTSIDE RECORDS SUMMARY | 2025-01-31 17:53 | XMS_ITS | Data Portability ---
Author Organization [facility], [facility] Address [address] [place] [address] Care Team Providers Care Chaser Helper Name Role Phone TERRI CHAVEZ Primary Care [...] or to follow up sooner if needed. [email or web address] Not available 12/09/2024 06:12:50 12/30/2024 12/30/2024 History: [...] and lucid. Normal insight, affect and grooming. 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 No spasticity [...] available Not available Not available [place] [facility] [place] M Harvey Whitney MD Not [...] - 4 b knee 4v 2024 025 [email or web address] [facility], [address] [facility] [address], [facility] [address], [place], [address], 12/30/2024 13:01:54 Medication Orders None recorded . Patient TargetsNo targets recorded. Patient InstructionsNo instructions recorded. Reason for Referral None Reported. Results Created Date Observation Date Name Description Value Unit Range Abnormal Flag Note LastModifiedBy Organization Detail LastModifiedTime 12/31/1912/30/2024 CBC WITH DIFFE RENTI AL/PL ATELE T WBC 9.5 x10e3 /uL 3.4-10 .8 normal Not Available [facility] [address] [facility], [place], [address], 12/31/2024 06:05:31 12/31/1912/30/2024 CBC WITH DIFFE RENTI AL/PL ATELE T RBC 4.90 x10e6 /uL 4.14-5 .80 normal Not Available [facility] [address] [place], [address], 12/31/2024 06:05:31 12/31/19 25 12/30/2024 CBC WITH DIFFE RENTI AL/PL ATELE T hemoglobin 15.2 g/dL 13.0-1 7.7 normal Not Available [facility] [address] [place], [address], 12/31/2024 06:05:31 12/31/19 25 12/30/2024 CBC WITH DIFFE RENTI AL/PL ATELE T hematocrit 44.5 % 37.5-5 1.0 normal Not Available [facility] [address] [facility], [place], [address], 12/31/2024 06:05:31 12/31/19 25 12/30/2024 CBC WITH DIFFE RENTI AL/PL ATELE T MCV 91 fL 79-97 normal Not Available [facility] [address] [place], [address], 12/31/2024 06:05:31 12/31/19 25 12/30/2024 CBC WITH DIFFE RENTI AL/PL ATELE T MCH 31.0 pg 26.6-3 3.0 normal Not Available [facility] [address] [place], [address], 12/31/2024 06:05:31 12/31/19 25 12/30/2024 CBC WITH DIFFE RENTI AL/PL ATELE T MCHC 34.2 g/dL 31.5-3 5.7 normal Not Available [facility] [address] [place], [address], 12/31/2024 06:05:31 12/31/19 25 12/30/2024 CBC WITH DIFFE RENTI AL/PL ATELE T RDW 13.2 % 11.6-1 5.4 Not Available [facility] [address] [place], [address], 12/31/2024 06:05:31 12/31/19 25 12/30/2024 CBC WITH DIFFE RENTI AL/PL ATELE T platelets 204 x10e3 /uL 150-45 0 normal Not Available [facility] [address] [facility], [place], [address], 12/31/2024 06:05:31 12/31/19 25 12/30/2024 CBC WITH DIFFE RENTI AL/PL ATELE T neutrophils 43 % not estab. normal Not Available [facility] [address] [facility], [place], [address], 12/31/2024 06:05:31 12/31/19 25 12/30/2024 CBC WITH DIFFE RENTI AL/PL ATELE T lymphs 42 % not estab. normal Not Available [facility] [address] [facility], [place], [address], 12/31/2024 06:05:31 12/31/19 25 12/30/2024 CBC WITH DIFFE RENTI AL/PL ATELE T monocytes 10 % not estab. normal Not Available [facility] [address] [place], [address], 12/31/2024 06:05:31 12/31/19 25 12/30/2024 CBC WITH DIFFE RENTI AL/PL ATELE T eos 3 % not estab. normal Not Available [facility] [address] [place], [address], 12/31/2024 06:05:31 12/31/19 25 12/30/2024 CBC WITH DIFFE RENTI AL/PL ATELE T basos 1 % not estab. 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 0 normal Not Available [facility] [address] [place], [address], 12/31/2024 06:05:31 12/31/19 25 12/30/2024 CBC WITH DIFFE RENTI AL/PL ATELE T lymphs (absolute) 3.9 x10e3 /uL 0.7-3. 1 above high normal Not Available [facility] [address] [place], [address], 12/31/2024 06:05:31 12/31/19 25 12/30/2024 CBC WITH DIFFE RENTI AL/PL ATELE T monocytes(ab solute) 1.0 x10e3 /uL 0.1-0. 9 above high normal Not Available [facility] [address] [place], [address], 12/31/2024 06:05:31 12/31/19 25 12/30/2024 CBC WITH DIFFE RENTI AL/PL ATELE T eos (absolute) 0.3 x10e3 /uL 0.0-0. 4 normal Not Available [facility] [address] [place], [address], 12/31/2024 06:05:31 12/31/19 25 12/30/2024 CBC WITH DIFFE RENTI AL/PL ATELE T baso (absolute) 0.1 x10e3 /uL 0.0-0. 2 normal Not Available [facility] [address] [facility], [place], [address], 12/31/2024 06:05:31 12/31/19 25 12/30/2024 CBC WITH DIFFE RENTI AL/PL ATELE T immature granulocytes 1 % not estab. Not Available [facility] [address] [facility], [place], [address], 12/31/2024 06:05:31 12/31/19 25 12/30/2024 CBC WITH DIFFE RENTI AL/PL ATELE T immature grans (abs) 0.1 x10e3 /uL 0.0-0. 1 Not Available [facility] [address] [facility], [place], [address], 12/31/2024 06:05:31 12/31/19 25 12/30/2024 CBC WITH DIFFE RENTI AL/PL ATELE T NRBC WOOD POLE TREATER Not Available [facility] [address] [facility], [place], [address], 12/31/2024 06:05:31 12/31/19 25 12/30/2024 CBC WITH DIFFE RENTI AL/PL ATELE T hematology comments: WOOD POLE TREATER Not Available [facility] [address] [facility], [place], [address], 12/31/2024 06:05:31 12/31/19 25 12/30/2024 ELECT ROLYT E PANEL sodium 141 mmol/ L 134-14 4 normal Not Available [facility] [address] [place], [address], 12/31/2024 06:05:32 12/31/19 25 12/30/2024 ELECT ROLYT E PANEL potassium 4.7 mmol/ L 3.5-5. 2 normal Not Available [facility] [address] [place], [address], 12/31/2024 06:05:32 12/31/19 25 12/30/2024 ELECT ROLYT E PANEL chloride 102 mmol/ L 96-106 normal Not Available [facility] [address] [facility], [place], [address], 12/31/2024 06:05:32 12/31/19 25 12/30/2024 ELECT ROLYT E PANEL carbon dioxide, total 30 mmol/ L 20-29 above high normal Not Available [facility] [address] [facility], [place], [address], 12/31/2024 06:05:32 12/31/19 25 12/30/2024 BUN+C REAT BUN 14 mg/dL 8-27 normal Not Available [facility] [address] [facility], [place], [address], 12/31/2024 06:05:32 12/31/19 25 12/30/2024 BUN+C REAT creatinine 0.94 mg/dL 0.76-1 .27 normal Not Available [facility] [address] [facility], [place], [address], 12/31/2024 06:05:32 12/31/19 25 12/30/2024 BUN+C REAT eGFR 92 mL/mi n/1.7 3 >59 normal Not Available [facility] [address] [facility], [place], [address], 12/31/2024 06:05:32 12/31/19 25 12/30/2024 BUN+C REAT BUN/creatini ne ratio 15 10-24 normal Not Available [facility] [address] [facility], [place], [address], 12/31/2024 06:05:32 12/31/19 25 12/31/2024 PROTH ROMBI [...] range 2.5 - 3.5 Not Available [facility] [address] [place], [address], 12/31/2024 06:05:32 12/31/1912/31/2024 PROTH ROMBI N TIME (PT) prothrombin time 9.5 sec 9.1-12 .0 normal Not Available [facility] [address] [place], [address], 12/31/2024 06:05:32 12/31/19 25 12/31/2024 HEMOG LOBIN A1C hemoglobin A1C 5.9 % 4.8-5. 6 above high normal Predi abete s: 5.7 - 6.4 Diabe juvenal: >6.4 Glyce lucina contr ol for adult s with diabe juvenal: <7.0 Not Available [facility] [address] [place], [address], 12/31/2024 06:05:33 12/31/19 25 12/31/2024 PTT, ACTIV [...] meg of Derrick coombs. Not Available [facility] [address] [place], [address], 12/31/2024 06:05:33 12/31/19 25 12/30/2024 GLUCO SE glucose 93 mg/dL 70-99 normal Not Available [facility] [address] [facility], [place], [address], 12/31/2024 06:05:33 12/31/19 25 12/30/2024 XR, knee, 4 or more view http:/ [email or web address] ?Encry pted=s hAaTro YD8dLq bEUv6g %2BXZw aYqtaq 0bqfl% 2Fg9IQ a4ajBk vP9nXo QUaueC m3YtLR FvZlgJ JJ8mAn HZtai3 1m7424 AC0KlY 3uAU6W hKiQtr MwF INTERFACE [facility] [address], [address], 12/30/2024 11:06:05 12/31/19 25 12/30/2024 XR, knee, 4 or more view http:/ [email or web address] ?Encry pted=s hAaTro YD8dLq bEUv6g %2BXZw aYqtaq 0bqfl% 2Fg9IQ a4ajBk vP9nXo QUaueC m3YtLR FvZlgJ JJ8mAn HZtai3 4s6308 AC0KlY 3uAU6W hKiQtr MwF INTERFACE [facility] [address] [facility] [address], [place], [address], 12/30/2024 11:06:06 Result Notes Documentation Provider Name and Address Organization Details Recorded Time Xr, Knee, 4 Or More View : [email or web address] Encrypted=eiWgGvyIY5bOkfE Uv6g%5MOJvgJtsyf5qksr%2Fg 4FOj2boRbeL6mIkITmhgEs7No UUSkYtoZIL1sXxNDess67g967 3QN8UfL7eTF9JlBlIfrEoS Not Available [facility] 12/30/2024 11:06: 05 Xr, Knee, 4 Or More View : [email or web address] Encrypted=cuEmQylSW2cOfnR Uv6g%6QLMdsZnmhe3lreg%2Fg 7HFx1wjPnlF3dCzNGjopVs1Hm SRXzDfhBCK0bIfNDsac50x706 3GO2GwR3fCX8SrSmCfgCwK Not Available [facility] 12/30/2024 11:06: 07 Problems Name Problem SNOMED Code Status Onset Date Resolution Date Notes Provider Name and Address Organization Details Recorded Time Idiopathi c osteoarth ritis 288691349 Active 2016 Problem Code: M17.0; Problem Code Type: ICD-10; Status: 'A'; Not Available [facility] 4 11:13:42 Sprain of shoulder 1224459 Active 2016 Problem Code: S43.82XA ; Problem Code Type: ICD-10; Status: 'A'; Not Available [facility] 4 11:13:42 Tear of medial meniscus of knee 213864566 Active 2016 Problem Code: S83.242A ; Problem Code Type: ICD-10; Status: 'A'; Not Available [facility] 4 11:13:42 Pain of left elbow joint 765903671870 12279 Active 2023 Enrrique Metcalf PA-C [address], [place], [address] , [facility] 4 08:31:05 Tear of distal tendon of biceps brachii 282614166 Active 2023 Enrrique Metcalf PA-C [address], [place], [address] , [facility] 4 08:44:12 Traumatic rupture of distal tendon of left biceps brachii 323988821499 53825 Active 2023 Enrrique Metcalf PA-C [address], [place], [address] , [facility] 4 06:48:06 Right lateral elbow tendinopa thy 581038891784 107 Active 2023 Enrrique Metcalf PA-C [address], [place], [address] , [facility] 4 14:00:50 Strain of hamstring tendon 371463415 Active 2023 Enrrique Metcalf PA-C [address], [place], [address] , [facility] 4 14:01:04 Rupture of tendon of biceps 510298890 Active 2023 Enrrique Metcalf PA-C [address], [place], [address] , [facility] 4 14:01:37 Osteoarth ritis of right knee joint 634180549462 100 Active 2024 Enrrique Metcalf PA-C [address], [place], [address] , [facility] 5 14:50:20 Pain of knee region 1688349876 Active 2024 [facility] 5 10:58:20 Problem Notes None recorded. Procedures Surgical History Date Name Laterality Status Provider Name and Address Organization Details Recorded Time 12/10/19 25 JZHip completed Tomasz Kumar PA-C [address], [place], [address], [facility] 12/09/2024 11:20:52 10/20/19 25 Knee Kenalog 40 1cc Injection, Bilateral completed Enrrique Metcalf PA-C [address], [place], [address], [facility] 10/19/2024 08:36:07 07/15/19 25 56526 Therapeutic Exercise (1:1) completed Daylin Mascorro, NOZZLEMAN [address], [place], [address], [facility] 07/14/2024 14:55:23 07/13/19 77242 Therapeutic Exercise (1:1) completed Daylin Mascorro, NOZZLEMAN [address], [place], [address], [facility] 07/12/2024 14:43:43 07/07/19 Knee Kenalog 40 1cc Injection, Bilateral completed Enrrique Metcalf PA-C [address], [place], [address], [facility] 07/06/2024 14:50:36 07/01/19 97882 Therapeutic Exercise (1:1) completed PHILLY BALL DPT [address], [place], [address], [facility] 06/30/2024 15:43:42 06/29/19 09542 Therapeutic Exercise (1:1) completed PHILLY BALL DPT [address], [place], [address], [facility] 06/28/2024 15:32:27 06/24/19 93741 Therapeutic Exercise (1:1) completed Daylin Mascorro PTA [address], [place], [address], [facility] 06/23/2024 14:59:50 06/15/19 72253 Therapeutic Exercise (1:1) completed Daylin Mascorro PTA [address], [place], [address], [facility] 06/14/2024 11:42:05 06/10/19 04449 Therapeutic Exercise (1:1) completed EASTON HYATTT [address], [place], [address], [facility] 06/09/2024 16:11:07 06/08/19 25 65095 Therapeutic Exercise (1:1) completed PHILLY BALL DPT [address], [place], [address], [facility] 06/08/2024 10:30:58 06/03/19 90327 Therapeutic Exercise (1:1) completed PHILLY BALL DPT [address], [place], [address], [facility] 06/02/2024 12:21:59 06/01/19 25 12362 Therapeutic Exercise (1:1) completed PHILLY BALL DPT [address], [place], [address], [facility] 05/31/2024 15:33:54 06/01/19 87505: Low complexity PT Eval completed PHILLY BALL DPT [address], [place], [address], [facility] 05/31/2024 15:33:59 05/29/19 25 Orthopedic Surgery completed Enrrique Metcalf PA-C [address], [place], [address], [facility] 07/06/2024 14:46:04 03/06/19 25 JZHip Inj completed Tomasz Kumar PA-C [address], [place], [address], [facility] 03/06/2024 08:30:40 01/13/20 30607 Therapeutic Exercise (1:1) completed PHILLY BALL DPT [address], [place], [address], [facility] 01/13/2024 13:38:03 01/07/20 24 02473 Therapeutic Exercise (1:1) completed Daylin Mascorro PTA [address], [place], [address], [facility] 01/07/2024 11:20:54 01/05/20 24 88921 Therapeutic Exercise (1:1) completed Daylin Formejester, NOZZLEMAN [address], [place], [address], [facility] 01/05/2024 14:21:17 01/01/20 72859 Therapeutic Exercise (1:1) completed Daylin Mascorro, NOZZLEMAN [address], [place], [address], [facility] 01/01/2024 15:23:33 12/29/19 Knee Depo 1cc Injection, Bilateral completed Jeff Mixon MD [address], [place], [address], [facility] 12/29/2023 12:10:59 12/16/19 37085 Therapeutic Exercise (1:1) completed PHILLY BALL DPT [address], [place], [address], [facility] 12/16/2023 15:20:25 12/16/19 61523: Low complexity PT Eval completed PHILLY BALL DPT [address], [place], [address], [facility] 12/16/2023 15:20:27 12/09/19 66194 Therapeutic Exercise (1:1) completed Daylin Mascorro, NOZZLEMAN [address], [place], [address], [facility] 12/09/2023 16:16:22 12/08/19 39612 Therapeutic Exercise (1:1) completed PHILLY BALL DPT [address], [place], [address], [facility] 12/08/2023 09:56:06 12/05/19 56606 Therapeutic Exercise (1:1) completed PHILLY BALL DPT [address], [place], [address], [facility] 12/07/2023 20:54:18 12/05/19 21801: Manual therapy completed PHILLY BALL DPT [address], [place], [address], [facility] 12/07/2023 20:54:27 12/02/19 24 40511 Therapeutic Exercise (1:1) completed PHILLY BALL, DPT [address], [place], [address], [facility] 12/02/2023 18:17:04 12/02/19 24 79709: Low complexity PT Eval completed PHILLY BALL, DPT [address], [place], [address], [facility] 12/02/2023 18:17:06 09/30/19 24 68789: Therapeutic Activities (1:1) completed Sharon Kidd, PT [address], [place], [address], [facility] 10/01/2023 08:32:21 09/30/19 24 80441 Therapeutic Exercise (1:1) completed Sharon Kidd, PT [address], [place], [address], [facility] 10/01/2023 08:32:29 09/30/19 24 48643: Neuromuscular Re-Education completed Sharon Kidd, PT [address], [place], [address], [facility] 10/01/2023 08:32:17 09/26/19 24 87974: Therapeutic Activities (1:1) completed Josie Santiago, NOZZLEMAN [address], [place], [address], [facility] 09/26/2023 15:51:23 09/26/19 24 55265 Therapeutic Exercise (1:1) completed Josie Santiago, NOZZLEMAN [address], [place], [address], [facility] 09/26/2023 15:51:19 09/26/19 24 51669: Neuromuscular Re-Education completed Josie Santiago, NOZZLEMAN [address], [place], [address], [facility] 09/26/2023 15:53:02 09/23/19 64816 Therapeutic Exercise (1:1) completed Josie Santiago, NOZZLEMAN [address], [place], [address], [facility] 09/23/2023 15:47:57 09/19/19 30927 Therapeutic Exercise (1:1) completed Josie Santiago, NOZZLEMAN [address], [place], [address], [facility] 09/19/2023 15:46:31 09/16/19 67657 Therapeutic Exercise (1:1) completed Sharon Kidd, PT [address], [place], [address], [facility] 09/15/2023 23:33:49 09/11/19 52064 Therapeutic Exercise (1:1) completed Josie Santiago NOZZLEMAN [address], [place], [address], [facility] 09/11/2023 16:35:46 09/09/19 26862 Therapeutic Exercise (1:1) cancelled Sharon Kidd, PT [address], [place], [address], [facility] 09/08/2023 23:14:47 09/02/19 25674 Therapeutic Exercise (1:1) completed Sharon Kidd, PT [address], [place], [address], [facility] 09/02/2023 06:54:54 08/28/19 19464 Therapeutic Exercise (1:1) completed Josie Santiago NOZZLEMAN [address], [place], [address], [facility] 08/28/2023 15:53:09 08/26/19 28954: Moderate complexity PT eval completed Sharon Kidd, PT [address], [place], [address], [facility] 08/27/2023 19:51:19 04/06/19 23 Cardiovascular Surgery completed Enrrique Metcalf PA-C [address], [place], [address], [facility] 07/06/2024 14:46:04 04/06/19 22 Stent completed Enrrique Metcalf PA-C [address], [place], [address], [facility] 07/06/2024 14:46:04 03/02/19 22 Shoulder Surgery completed Enrrique Metcalf PA-C [address], [place], [address], [facility] 07/06/2024 14:46:04 Ankle/Foot Surgery completed Genesis Metcalf PA-C [address], [place], [address], [facility] 07/06/2024 14:46:04 Imaging Results None recorded. Procedure Notes None recorded. Medical Equipment None Reported. Allergies Allergen ID Allergen Name Allergen Category Reaction Reaction Severity Criticality Documentation Date Start Date Code Code System Note Provider Name and Address Organization Details Recorded Time 530599 acetamino phen / oxycodone medicatio n Not available Not available Not available 10/21/2023 45549 3 RxNorm Enrrique Metcalf PA-C [address], [place], [address], [facility] 4 08:30:40 262692 oxycodone medicatio n itching Not available Not available 12/29/2024 7804 RxNorm Not Available maite - External Data Service - prod 5 17:50:07 414181 oxycodone hydrochlo ride medicatio n Not available Not available Not available 12/29/20242022 15299 RxNorm CARMELO KAMINSKI [facility] 5 11:11:18 904578 acetamino phen / oxycodone medicatio n hives Not available Not available 12/29/20242016 00812 3 RxNorm CARMELO xavier [place] - [facility] 11:11:22 Medications Name Sig [...] completed Not Available Not Available Not Available [facility] ODT 12/23 completed Not Available Not Available [...] Updated DateTime 10/19/2024 195.58 cm 30.7 kg/m2 834849.42 g Enrrique Metcalf PA-C [address], [place], [address], [facility] 10/19/2024 13:59:08 Date Recorded Body height Body mass index (BMI) Body weight Provider Name and Address Organization Details Last Updated DateTime 12/09/2024 195.58 cm 30.7 kg/m2 138208.42 g Ana Natarajan [facility] 12/09/2024 10:54:57 Date Recorded Body height Body mass index (BMI) Body weight Provider Name and Address Organization Details Last Updated DateTime 12/30/2024 195.58 cm 33.7 kg/m2 399439.23 g CARMELO KAMINSKI [facility] 12/30/2024 11:09:48 Social History Question Answer Notes LastModified by Organizat ion Details LastModified Time Tobacco Smoking Status Never Smoker Enrrique Metcalf PA-C [address], [place], [address], [facility] 06/07/2024 09:32:54 What Is Your Relationship Status? [email or web address] [id number] Information not available 06/07/2024 Sex: Unknown Functional Status Question Answer Note LastModified by Organizat ion Details LastModified Time How many times per week do you consume alcohol? Less than 1 time per week [place] [address] Information not available 07/06/2024 Do you use any illicit or recreational drugs? No [place] [address] Information not available 06/07/2024 Do you or have you ever used any other forms of tobacco or nicotine? No [place] [address] Information not available 07/06/2024 What is your level of alcohol consumption? None [place] [address] Information not available 06/07/2024 Do you or have you ever used e-cigarettes or vape? Never used electronic cigarettes [place] [address] Information not available 07/06/2024 Mental Status None recorded. Family History Nothing Reported. Medical History Condition Response Allergies/Hayfever Y Coronary Artery Disease N Anxiety/Depression Y Breathing or lung disorders N Emphysema N Nerve Disorders N Thyroid Problems N COPD N Pacemaker N Anemia N Kidney/Bladder Problems N Vascular Disease Y Heart Trouble Y Heart Attack ([place]) Y Gastrointestinal Disease N Cholesterol Y Diabetes [...] ICD10 Code Diagnosis IMO Codes Diagnosis Note [id number] MD Candida Pé[place] [address] 06/16/2023 14:02:41 07/08/2023 08:30:01 Pain of bilateral knee regions [id number] 18185 M25.561 Pain of le ft knee joint 4680377990 71154 M25.[id number] [place] [address] 07/15/2023 13:35:36 07/28/2023 16:21:56 Derangement of medial meniscus 978411864 M23.822 [id number] Sharon Kidd, PT [facility] [address] [place] [address] 08/26/2023 14:35:53 08/26/2023 16:02:25 Pain of bilateral knee joints 5598377780 77596 M25.561 M25.721 [id number] Josie Santiago, NOZZLEMAN [facility] [address] [place] [address] 08/28/2023 14:47:25 08/28/2023 15:54:10 Pain of bilateral knee joints 4415727874 68621 M25.561 M25.170 [id number] Sharon Kidd, PT [facility] [address] [place] [address] 09/02/2023 14:56:03 09/03/2023 06:53:43 Pain of bilateral knee joints 9120910953 95291 M25.561 M25.106 [id number] Josie Santiago, NOZZLEMAN [facility] [address] [place] [address] 09/11/2023 15:51:30 09/12/2023 07:37:38 Pain of bilateral knee joints 1970393658 68290 M25.561 M25.390 [id number] Sharon Kidd, PT [facility] [address] [place] [address] 09/16/2023 14:59:22 09/17/2023 06:47:48 Pain of bilateral knee joints 6279456165 46178 M25.561 M25.971 [id number] Josie Santiago, NOZZLEMAN [facility] [address] [place] [address] 09/19/2023 14:52:58 09/19/2023 15:54:23 Pain of bilateral knee joints 2224037462 92774 M25.561 M25.620 [id number] Josie Santiago, NOZZLEMAN [facility] [address] [facility] [place] [address] 09/23/2023 14:51:15 09/23/2023 15:51:06 Pain of bilateral knee joints 7027805488 23011 M25.561 M25.082 [id number] Josie Santiago, [facility] [address] [place] [address] 09/26/2023 14:51:17 09/27/2023 20:29:26 Pain of bilateral knee joints 3221937288 19080 M25.561 M25.583 [id number] Sharon Kidd, PT [facility] [address] [place] [address] 09/30/2023 14:47:42 10/01/2023 09:13:36 Pain of bilateral knee joints 5187133186 56524 M25.561 M25.720 [id number] Enrrique Metcalf PA-C [facility] [address] [facility] [place] [address] 10/21/2023 07:47:43 10/31/2023 15:40:19 Pain of left elbow joint 9375112610 7905983 M25.522 UC Tear of di stal tendon of biceps brachii 063192679 S46.291A [id number] Eleazar Campo PA-C [facility] [address] [place] [address] 10/23/2023 09:18:44 10/23/2023 10:45:08 Pain of right knee joint 4648906750 59120 M25.561 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 0952562127 0098637 M23.500 [id number] EVA Chávez [address] [place] [address] 11/15/2023 10:54:52 12/03/2023 09:17:35 Traumatic rupture of distal tendon of left biceps brachii 8823782627 0316800 S46.212A [id number] [facility] [address] [place] [address] 12/02/2023 13:12:46 12/02/2023 14:53:50 Strain of muscle of upper limb 543782257 S46.212D 700280 [id number] [facility] [address] [place] [address] 12/05/2023 15:20:11 12/05/2023 16:05:40 Strain of muscle of upper limb 558422573 S46.212D 405019 [id number] [facility] [address] [place] [address] 12/08/2023 09:18:27 12/08/2023 12:58:00 Strain of muscle of upper limb 009390008 S46.212D 186693 [id number] EVA [facility] [address] [place] [address] 12/09/2023 07:30:36 12/09/2023 07:31:46 Pain of right knee joint 3493826978 37679 M25.561 [id number] Tear of me dial meniscus of knee 336028314 S83.241D 86374921 [id number] JENNIFER [facility] [address] [place] [address] 12/09/2023 13:16:57 12/09/2023 15:16:58 Strain of muscle of upper limb 863438251 S46.212D 543147 [id number] [facility] [address] [place] [address] 12/16/2023 13:19:19 12/16/2023 16:04:27 Tear of medial meniscus of knee 030322302 S83.241D [id number] Follow-up status 9112019 05 Z47.89 724322 [id number] EVA Marin [address] [place] [address] 12/22/2023 13:09:35 01/22/2024 11:20:11 Tear of medial meniscus of knee 926032984 S83.241D Osteoarthr itis of left knee joint 4167828136 [address] M17.12 9489482 [id number] MD Candida P[facility]rez Clinical [address] [place] [place] [address] 12/29/2023 10:40:39 01/22/2024 10:05:50 Primary gonarthrosis, bilateral 219457118 M17.0 7521810 [id number] Daylin Walton r, NOZZLEMAN [facility] [address] [place] [address] 01/01/2024 13:25:02 01/01/2024 14:54:01 Tear of medial meniscus of knee 034686575 S83.241D 974305 Follow-up status 2758952 05 Z47.89 390890 [id number] Daylin Walton r, NOZZLEMAN [facility] [address] [place] [address] 01/05/2024 11:19:07 01/05/2024 12:18:28 Tear of medial meniscus of knee 973030333 S83.241D [id number] Follow-up status 8848237 05 Z47.89 692481 [id number] EVA Chávez [address] [place] [address] 01/05/2024 13:25:44 01/22/2024 08:31:42 Right lateral elbow tendinopathy 1752265215 60342 M77.11 0102520 Rupture of tendon of biceps 317069357 S46.212D 88266492 [id number] Daylin newell, NOZZLEMAN [facility] [address] [place] [address] 01/07/2024 11:18:42 01/07/2024 12:48:32 Tear of medial meniscus of knee 115466773 S83.241D 303887 Follow-up status 0383884 05 Z47.89 496768 [id number] PHILLY BALL DPT [facility] [address] [place] [address] 01/13/2024 13:22:56 01/13/2024 14:48:58 Tear of medial meniscus of knee 607093995 S83.241D 983670 Follow-up status 0661796 05 Z47.89 470149 [id number] EVA Lentz [address] [place] [address] 03/06/2024 08:01:43 03/18/2024 10:31:51 Pain of hip region 92380076 M25.551 595771 Trochanter ic bursitis of right hip 2893867981 44614 M70.61 0110844 [id number] MD RAINER Pérez [address] [place] [address] 04/09/2024 10:16:13 04/20/2024 11:55:27 Acute meniscal tear, medial 988652295 S83.232D 7810934 [id number] [facility] [address] [place] [address] 05/31/2024 14:20:45 05/31/2024 15:36:20 Follow-up status 698013266 Z47.89 287130 Tear of me dial meniscus of left knee joint 4545001780 7104 S83.242D 78276494 [id number] [facility] [address] [place] [address] 06/02/2024 11:38:22 06/02/2024 12:25:23 Follow-up status 445514673 Z47.89 288278 Tear of me dial meniscus of left knee joint 0983589452 7104 S83.242D 83947500 [id number] EVA Chávez [address] [place] [address] 06/07/2024 09:23:29 06/11/2024 07:23:49 History of operative procedure on knee 689194216 Z98.890 417972 [id number] [facility] [address] [place] [address] 06/07/2024 14:44:24 06/07/2024 15:51:25 Follow-up status 647903789 Z47.89 573306 Tear of me dial meniscus of left knee joint 0911809477 7104 S83.242D 60072520 [id number] [facility] [address] [place] [address] 06/09/2024 14:47:14 06/09/2024 15:48:09 Follow-up status 889726915 Z47.89 928683 Tear of me dial meniscus of left knee joint 8678807342 7104 S83.242D 37180375 [id number] Daylin Walton r, NOZZLEMAN [facility] [address] [place] [address] 06/14/2024 12:46:29 06/14/2024 14:10:41 Follow-up status 326661153 Z47.89 958550 Tear of me dial meniscus of left knee joint 0312164667 7104 S83.242D 57042512 [id number] Daylin Lynnste r, NOZZLEMAN [facility] [address] [place] [address] 06/23/2024 14:39:43 06/23/2024 15:26:40 Follow-up status 472483458 Z.89 009559 Tear of me dial meniscus of left knee joint 9203548062 7104 S83.242D 49653322 [id number] PHILLY BALL, DPT [facility] - [facility] [address] [place] [address] 06/28/2024 14:42:34 06/28/2024 15:54:38 Follow-up status 241588741 Z47.89 526700 Tear of me dial meniscus of left knee joint 3847615181 7104 S83.242D 13806959 [id number] PHILLY BALL, DPT [facility] [address] [place] [address] 06/30/2024 14:52:11 06/30/2024 15:27:40 Follow-up status 026117542 Z47.89 911963 Tear of me dial meniscus of left knee joint 6443482705 7104 S83.242D 42832054 [id number] EVA Chávez [address] [place] [address] 07/06/2024 14:38:02 07/14/2024 15:50:33 Osteoarthritis of right knee joint 0329168410 91183 M17.11 3367482 [id number] Daylin Walton r, NOZZLEMAN [facility] [address] [place] [address] 07/12/2024 14:33:28 07/12/2024 15:30:24 Follow-up status 765167808 Z47.89 575802 Tear of me dial meniscus of left knee joint 2698807962 7104 S83.242D 86883595 [id number] Daylin Walton r, NOZZLEMAN [facility] [address] [place] [address] 07/14/2024 14:41:32 07/14/2024 15:42:51 Follow-up status 453340730 Z47.89 755469 Tear of me dial meniscus of left knee joint 3870855412 7104 S83.242D [id number] [id number] EVA Ch[facility] [address] [place] [place] [address] 10/19/2024 13:52:03 10/29/2024 06:22:48 Osteoarthritis of right knee joint 5298904544 92872 M17.11 8429555 [id number] EVA Lentz [address] [facility] [place] [address] 12/09/2024 10:40:56 12/16/2024 14:08:02 Trochanteric bursitis of right hip 4287102762 81447 M70.61 2011493 [id number] MD RAIN[facility] [address] [place] [address] 12/30/2024 10:46:39 01/12/2025 14:26:23 Pain of knee region 1155443723 M25.561 M25.562 G89.29 [id number] Primary go narthrosis, bilateral 273214517 M17.0 [id number] Health Concerns Section Related Observation LastModified by Organization Detai ls LastModified Time None Recorded Concern Status LastModified by Organization Details LastModified Time None Recorded Advance Directives Directive None Recorded Payers Insurance Date Sequence Insurance Name Policy Number Policy Pepe Covered Member ID Pepe Member ID Guarantor Name 12/29/2024 1 [facility] [id number] 1 Terri Mittal [id number] Terri Mittal 01/12/2025 1 [facility] IN[facility]MNITY PL[facility] (PPO) [id number] Terri Mittal [id number] Terri Mittal Notes Date Note Type Note Provider Name and Address Organization Details Recorded Time 07/12/2024 text/html Pt reports that he had a follow up with PA and got a cortisone shot, states knee is feeling better. Daylin Mascorro, NOZZLEMAN [address], [place], [address], [facility] 07/12/2024 15:36:01 07/14/2024 text/html Pt reports cont good improvement in his knee Daylin Mascorro, NOZZLEMAN [address], [place], [address], [facility] 07/14/2024 16:16:26 10/19/2024 [...] of compliance regarding home exercises moving forward. [employer] speech recognition recruiting coordinator software was used to create portions of this document. An attempt at proofreading has been made to minimize errors. Please call for corrections Enrrique Metcalf PA-C [address] [place] [address] [address], [place], [address], [facility] 10/19/2024 14:11:44
--- OUTSIDE RECORDS SUMMARY | 2025-01-31 17:53 | XMS_ITS | Continuity of Care Document ---
Author Organization [place] - [facility], [facility] 1st Floor Address [address] [place] [address] Care Team Providers Care Accounting Manager Controller Name Role Phone TERRI CHAVEZ Primary Care Provider [phone] Assessment Encounter Date Assessment Date Assessment LastModified [...] or to follow up sooner if needed. Not available 12/09/2024 06:12:50 Plan of Treatment Reminders Order Date Submit Date Provider Last Modified By Organization Details Last Modified Time Details Appointments NORBERTO H&P 2025 09:30A M Koko Soto NP Not available Not available Not available SURGERY @ [facility] 2025 10:30A M Harvey Whitney MD Not [...] a4ajBk vP9nXo QUaueC m3YtLR FvZlgJ JJ8mAn HZtai3 2s2479 AC0KlY 3uAU6W hKiQtr MwF INTERFACE [facility] Office [address] [facility] [address], [place], [address], 12/30/2024 11:06:05 12/31/19 25 12/30/2024 XR, knee, 4 or more view http:/ [email or web address] ?Encry pted=s hAaTro YD8dLq bEUv6g %2BXZw aYqtaq 0bqfl% 2Fg9IQ a4ajBk vP9nXo QUaueC m3YtLR FvZlgJ JJ8mAn HZtai3 0j8421 AC0KlY 3uAU6W hKiQtr MwF INTERFACE [facility] [address], [place], [address], 12/30/2024 11:06:06 Result Notes None recorded. Problems Name Problem SNOMED Code Status Onset Date Resolution Date Notes Provider Name and Address Organization Details Recorded Time Idiopathi c osteoarth ritis 402021456 Active 2016 Problem Code: M17.0; Problem Code Type: ICD-10; Status: 'A'; Not Available [facility] 4 11:13:42 Sprain of shoulder 7705664 Active 2016 Problem Code: S43.82XA ; Problem Code Type: ICD-10; Status: 'A'; Not Available [facility] 4 11:13:42 Tear of medial meniscus of knee 815569744 Active 2016 Problem Code: S83.242A ; Problem Code Type: ICD-10; Status: 'A'; Not Available [facility] 4 11:13:42 Pain of left elbow joint 618691933624 23980 Active 2023 Enrrique Metcalf PA-C [address], [place], [address] , [facility] 4 08:31:05 Tear of distal tendon of biceps brachii 465270452 Active 2023 Enrrique Metcalf PA-C [address], [place], [address] , [facility] 4 08:44:12 Traumatic rupture of distal tendon of left biceps brachii 088220204570 Active 2023 Enrrique Metcalf PA-C [address], [place], [address] , [facility] 4 06:48:06 Right lateral elbow tendinopa thy 917490467120 107 Active 2023 Enrrique Metcalf PA-C [address], [place], [address] , [facility] 4 14:00:50 Strain of hamstring tendon 745404764 Active 2023 Enrrique Metcalf PA-C [address], [place], [address] , [facility] 4 14:01:04 Rupture of tendon of biceps 423668794 Active 2023 Enrrique Metcalf PA-C [address], [place], [address] , [facility] 4 14:01:37 Osteoarth ritis of right knee joint 443270236255 100 Active 2024 Enrrique Mectalf PA-C [address], [place], [address] , [facility] 5 14:50:20 Pain of knee region 9787930691 Active 2024 CARMELO xavier, [facility] 5 10:58:20 Problem Notes None recorded. Procedures Surgical History Date Name Laterality Status Provider Name and Address Organization Details Recorded Time 12/10/19 25 [facility] completed Tomasz Kumar PA-C [address], [place], [address], [facility] 12/09/2024 11:20:52 10/20/19 Knee Kenalog 40 1cc Injection, Bilateral completed Enrrique Metcalf PA-C [address], [place], [address], [facility] 10/19/2024 08:36:07 07/15/19 25 38032 Therapeutic Exercise (1:1) completed Daylin Mascorro PTA [address], [place], [address], [facility] 07/14/2024 14:55:23 07/13/19 15283 Therapeutic Exercise (1:1) completed Daylin Mascorro PTA [address], [place], [address], [facility] 07/12/2024 14:43:43 07/07/19 Knee Kenalog 40 1cc Injection, Bilateral completed Enrrique Metcalf PA-C [address], [place], [address], [facility] 07/06/2024 14:50:36 07/01/19 99178 Therapeutic Exercise (1:1) completed PHILLY BALL DPT [address], [place], [address], [facility] 06/30/2024 15:43:42 06/29/19 27972 Therapeutic Exercise (1:1) completed PHILLY BALL DPT [address], [place], [address], [facility] 06/28/2024 15:32:27 06/24/19 48969 Therapeutic Exercise (1:1) completed Daylin Mascorro PTA [address], [place], [address], [facility] 06/23/2024 14:59:50 06/15/19 08979 Therapeutic Exercise (1:1) completed Daylin Mascorro PTA [address], [place], [address], [facility] 06/14/2024 11:42:05 06/10/19 87644 Therapeutic Exercise (1:1) completed PHILLY BALL DPT [address], [place], [address], [facility] 06/09/2024 16:11:07 06/08/19 73521 Therapeutic Exercise (1:1) completed PHILLY BALL DPT [address], [place], [address], [facility] 06/08/2024 10:30:58 06/03/19 07922 Therapeutic Exercise (1:1) completed PHILLY BALL DPT [address], [place], [address], [facility] 06/02/2024 12:21:59 06/01/19 24413 Therapeutic Exercise (1:1) completed EASTON HYATTT [address], [place], [address], [facility] 05/31/2024 15:33:54 06/01/19 55111: Low complexity PT Eval completed EASTON HYATTT [address], [place], [address], [facility] 05/31/2024 15:33:59 05/29/19 Orthopedic Surgery completed Enrrique Metcalf PA-C [address], [place], [address], [facility] 07/06/2024 14:46:04 03/06/19 JZHip Inj completed Tomasz Kumar PA-C [address], [place], [address], [facility] 03/06/2024 08:30:40 01/13/20 57748 Therapeutic Exercise (1:1) completed PHILLY BALL DPT [address], [place], [address], [facility] 01/13/2024 13:38:03 01/07/20 59509 Therapeutic Exercise (1:1) completed Daylin Mascorro PTA [address], [place], [address], [facility] 01/07/2024 11:20:54 01/05/20 35669 Therapeutic Exercise (1:1) completed Daylin Mascorro TRANSMISSION LINE ENGINEER [address], [place], [address], [facility] 01/05/2024 14:21:17 01/01/20 31918 Therapeutic Exercise (1:1) completed Daylin Mascorro, TRANSMISSION LINE ENGINEER [address], [place], [address], [facility] 01/01/2024 15:23:33 12/29/19 Knee Depo 1cc Injection, Bilateral completed Jeff Mixon MD [address], [place], [address], [facility] 12/29/2023 12:10:59 12/16/19 52082 Therapeutic Exercise (1:1) completed PHILLY BALL, DPT [address], [place], [address], [facility] 12/16/2023 15:20:25 12/16/19 38086: Low complexity PT Eval completed PHILLY BALL, DPT [address], [place], [address], [facility] 12/16/2023 15:20:27 12/09/19 98158 Therapeutic Exercise (1:1) completed Daylin Mascorro, TRANSMISSION LINE ENGINEER [address], [place], [address], [facility] 12/09/2023 16:16:22 12/08/19 59253 Therapeutic Exercise (1:1) completed PHILLY BALL, DPT [address], [place], [address], [facility] 12/08/2023 09:56:06 12/05/19 69934 Therapeutic Exercise (1:1) completed PHILLY BALL, DPT [address], [place], [address], [facility] 12/07/2023 20:54:18 12/05/19 18658: Manual therapy completed PHILLY BALL, DPT [address], [place], [address], [facility] 12/07/2023 20:54:27 12/02/19 52579 Therapeutic Exercise (1:1) completed PHILLY BALL, DPT [address], [place], [address], [facility] 12/02/2023 18:17:04 12/02/19 24 01740: Low complexity PT Eval completed PHILLY BALL, DPT [address], [place], [address], [facility] 12/02/2023 18:17:06 09/30/19 24 45093: Therapeutic Activities (1:1) completed Sharon Kidd, PT [address], [place], [address], [facility] 10/01/2023 08:32:21 09/30/19 24 07752 Therapeutic Exercise (1:1) completed Sharon Kidd, PT [address], [place], [address], [facility] 10/01/2023 08:32:29 09/30/19 24 61920: Neuromuscular Re-Education completed Sharon Kidd, PT [address], [place], [address], [facility] 10/01/2023 08:32:17 09/26/19 24 12738: Therapeutic Activities (1:1) completed Josie Santiago, TRANSMISSION LINE ENGINEER [address], [place], [address], [facility] 09/26/2023 15:51:23 09/26/19 24 03461 Therapeutic Exercise (1:1) completed Josie Santiago, TRANSMISSION LINE ENGINEER [address], [place], [address], [facility] 09/26/2023 15:51:19 09/26/19 24 93962: Neuromuscular Re-Education completed Josie Santiago, TRANSMISSION LINE ENGINEER [address], [place], [address], [facility] 09/26/2023 15:53:02 09/23/19 24 28082 Therapeutic Exercise (1:1) completed Josie Santiago, TRANSMISSION LINE ENGINEER [address], [place], [address], [facility] 09/23/2023 15:47:57 09/19/19 07644 Therapeutic Exercise (1:1) completed Josie Santiago, TRANSMISSION LINE ENGINEER [address], [place], [address], [facility] 09/19/2023 15:46:31 09/16/19 41395 Therapeutic Exercise (1:1) completed Sharon Kidd, PT [address], [place], [address], [facility] 09/15/2023 23:33:49 09/11/19 76346 Therapeutic Exercise (1:1) completed Josie Santiago TRANSMISSION LINE ENGINEER [address], [place], [address], [facility] 09/11/2023 16:35:46 09/09/19 58644 Therapeutic Exercise (1:1) cancelled Sharon Kidd, PT [address], [place], [address], [facility] 09/08/2023 23:14:47 09/02/19 68129 Therapeutic Exercise (1:1) completed Sharon Kidd, PT [address], [place], [address], [facility] 09/02/2023 06:54:54 08/28/19 11798 Therapeutic Exercise (1:1) completed Josie Santiago, TRANSMISSION LINE ENGINEER [address], [place], [address], [facility] 08/28/2023 15:53:09 08/26/19 87579: Moderate complexity PT eval completed Sharon Kidd, PT [address], [place], [address], [facility] 08/27/2023 19:51:19 04/06/19 Cardiovascular Surgery completed Enrrique Mtecalf PA-C [address], [place], [address], [facility] 07/06/2024 14:46:04 04/06/19 22 Stent completed Enrrique Metcalf PA-C [address] [facility] [place], [place], [address], [facility] 07/06/2024 14:46:04 03/02/19 22 Shoulder Surgery completed Enrrique Metcalf PA-C [address], [place], [address], [facility] 07/06/2024 14:46:04 Ankle/Foot Surgery completed Genesis Metcalf PA-C [address] [facility] [place], [place], [address], [facility] 07/06/2024 14:46:04 Imaging Results None recorded. Procedure Notes None recorded. Medical Equipment None Reported. Allergies Allergen ID Allergen Name Allergen Category Reaction Reaction Severity Criticality Documentation Date Start Date Code Code System Note Provider Name and Address Organization Details Recorded Time 508551 acetamino phen / oxycodone medicatio n Not available Not available Not available 10/21/2023 28206 3 RxNorm Enrrique Metcalf PA-C [address], [place], [address], [facility] 4 08:30:40 349484 oxycodone medicatio n itching Not available Not available 12/29/2024 7804 RxNorm Not Available maite - External Data Service - prod 5 17:50:07 215650 oxycodone hydrochlo ride medicatio n Not available Not available Not available 12/29/20242022 58250 RxNorm CARMELO xavier [facility] 5 11:11:18 152799 acetamino phen / oxycodone medicatio n hives Not available Not available 12/29/20242016 44221 3 RxNorm CARMELO xavier [facility] 5 11:11:22 Medications Name Sig Start [...] completed Not Available Not Available Not Available [facility] ODT 12/23 completed Not Available Not [...] Updated DateTime 12/09/2024 195.58 cm 30.7 kg/m2 557712.42 g Ana Natarajan [facility] 12/09/2024 10:54:57 Social History Question Answer Notes LastModified by [employer] Details LastModified Time Tobacco Smoking Status Never Smoker Enrrique Metcalf PA-C [address] [facility] [address], [place], [address], [facility] 06/07/2024 09:32:54 What Is Your Relationship Status? [email or web address] Information not available 06/07/2024 Sex: Unknown Functional Status Question Answer Note LastModified by [employer] Details LastModified Time How many times per [...] Disease Y Heart Trouble Y Heart Attack ([place]) Y Gastrointestinal Disease N Cholesterol Y Diabetes [...] ICD10 Code Diagnosis IMO Codes Diagnosis Note [id number] EVA Lentz [address] [place] [address] 12/09/2024 10:40:56 12/16/2024 14:08:02 Trochanteric bursitis of right hip 5643744537 63838 M70.61 7499957 Health Concerns Section Related Observation LastModified by Organization Detai ls LastModified Time None Recorded Concern Status LastModified by Organization Details LastModified Time None Recorded Payers Encounter Date Sequence Insurance Name Policy Number Policy Pepe Covered Member ID Pepe Member ID Guarantor Name 12/09/2024 1 [facility] [place] [employer] [place] [id number] Terri Mittal [id number] Terri Mittal
--- OUTSIDE RECORDS SUMMARY | 2025-01-31 17:54 | XMS_ITS | Clinical Summary ---
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 Cardiology [facility] [address] [place] [address] Dario Butler MD 11/23/2024 Telephone [facility] Cardiology [address] [place] [address] Dario Butler MD from Last 3 Months [...] Info) Description 02/01/2025 1:40 PM EST Consult [facility] Cardiology [facility] [address] [place] [address] Rosa Li NP [address] [place] [address] [address] [place] [address] 04/27/2025 9:50 AM EDT Office Visit [facility] Cardiology [facility] [address] [place] [address] Dario Butler MD [address] [place] [address] [address] [place] [address] Health Maintenance Due Date Last Done Comments Colorectal Cancer Screening: Colonoscopy 1965 Drug Screen 1965 Non-Opioid Controlled Substance Agreement 1963 DTaP,Tdap,and Td Vaccines (1 - Tdap) 1982 Pneumococcal Vaccine: 50+ Years (1 of 2 - PCV) 1982 RSV Immunization Adult Patients (1 - Risk 50-74 years 1-dose series) 2013 Zoster Vaccines (2 of 2) 04/06/2020 02/10/2020, 12/0 10/2019 HIV Screening 03/06/2023 Hepatitis C Screening 03/06/2023 Social Influencers of Health Screening 03/06/2023 Depression Screening 02/11/2024 COVID-19 Vaccine ( season) 2024 01/30/2024, 11/20/2022, 12/28/2021, Additional history exists Influenza Vaccine (#1) 2024 4, 11/19/2022, 11/26/2021, Additional history exists Hypertension/CHF/CAD Annual [...] 10:39 AM EDT Ischemic cardiomyopathy 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 Hyperlipidemia, unspecified hyperlipidemia type from Last 3 Months or Most Recently Relevant to Health Maintenance Results * Lipid panel with reflex to direct LDL (04/27/2024 10:39 AM EDT) Cholesterol 155 0 - 200 mg/dL LAB CHEMISTRY METHOD 04/27/2024 1:00 PM EDT [facility] Triglycerides 127 0 - 150 mg/dL LAB CHEMISTRY METHOD 04/27/2024 1:00 PM EDT [facility] HDL 57 >=40 mg/dL LAB CHEMISTRY METHOD 04/27/2024 1:00 PM EDT [facility] LDL Calculated 73 0 - 100 mg/dL LAB CHEMISTRY METHOD 04/27/2024 1:00 PM EDT [facility] VLDL Cholesterol Artur 25.4 mg/dL LAB CHEMISTRY METHOD 04/27/2024 1:00 PM T [facility] Non HDL Chol. (LDL+VLDL) 98 <145 mg/dL LAB CHEMISTRY METHOD 04/27/2024 1:00 PM EDT [facility] Chol/HDL Ratio 2.7 0.0 - 4.4 LAB CHEMISTRY METHOD 04/27/2024 1:00 PM T [facility] Blood Venous blood specimen / Unknown Venipuncture / Unknown 04/27/2024 10:39 AM EDT 04/27/2024 11:30 AM EDT Rosa Li FORWARDER OPERATOR LAB BLOOD ORDERABLES Final Result [facility] [address] [place] [address], * Basic metabolic panel (04/27/2024 10:39 AM EDT) Sodium 136 133 - 145 mmol/L LAB CHEMISTRY METHOD 04/27/2024 1:00 PM [facility] Potassium 4.2 3.5 - 5.5 mmol/L LAB CHEMISTRY METHOD 04/27/2024 1:00 PM [facility] Chloride 103 96 - 110 mmol/L LAB CHEMISTRY METHOD 04/27/2024 1:00 PM [facility] CO2 26 21 - 32 mmol/L LAB CHEMISTRY METHOD 04/27/2024 1:00 PM [facility] Anion Gap 7 3 - 11 LAB CHEMISTRY METHOD 04/27/2024 1:00 PM [facility] Glucose 100 70 - 100 mg/dL LAB CHEMISTRY METHOD 04/27/2024 1:00 PM EDT [facility] BUN 9 5 - 25 mg/dL LAB CHEMISTRY METHOD 04/27/2024 1:00 PM EDT [facility] Creatinine 0.89 0.70 - 1.30 mg/dL LAB CHEMISTRY METHOD 04/27/2024 1:00 PM EDT [facility] eGFR 97 >=60 mL/min/1. 73m2 LAB CHEMISTRY METHOD 04/27/2024 1:00 PM EDT [facility] Comment:Calculation based on the Chronic Kidney Disease Epidemiology Collaboration (CKD-EPI) equation refit without adjustment for race. BUN/Creatinine Ratio 10.1 LAB CHEMISTRY METHOD 04/27/2024 1:00 PM EDT [facility] Calcium 9.5 8.5 - 10.5 mg/dL LAB CHEMISTRY METHOD 04/27/2024 1:00 PM EDT [facility] Blood Venous blood specimen / Unknown Venipuncture / Unknown 04/27/2024 10:39 AM EDT 04/27/2024 11:30 AM EDT Rosa Li NP LAB BLOOD ORDERABLES Final Result [facility] [address] [place] [address], from Last 3 Months or Most Recently Relevant to Health Maintenance Insurance [facility] [employer] Care Teams Residential Subcontractor Relationship Specialty Start Date End Date Terri Drake MD [address] [place] [address] PCP - General 06/12/15
== END 2025-01-31 14:29 | disposition home or self-care (01) ==
LOC: HO.HMGAL 14:29
PROVIDERS: PCP Internal Medicine; Visit Provider Registered Nurse Emergency
DX: J30.89 Other allergic rhinitis (principal)
CPT/HCPCS: 95117; 95165